=== PATIENT | female | born 1950 | race African-American/Black ===

== ENCOUNTER 2016-06-02 20:34 | Inpatient (IN) | payer MEDICARE, MEDICAID ==
[~2016-06-02] VITALS: Ht 165.1 cm; Wt 132.9 kg
[~2016-06-02 20:34] MED LIST: AMLODIPINE BESY10 MG; DIAZEPAM5 MG; FUROSEMIDE40 MG PO; HYDROCODON-ACE1 EAC4; LOSARTAN POTASS25 M1; MELOXICAM15 MG PO; METOPROLOL TART50 M1; NORCO 5-325 TA1 EACH ORAL; ROBITUSSIN DM5 ML PO; ZITHROMAX250 MG ORAL
[2016-06-02 21:21] VITALS: BP 122/93
[2016-06-02 21:35] LABS: BASOPHILS % (AUTO) 1.9 % (0.0-2.0); EOSINOPHILS % (AUTO) 2.6 % (0.0-3.0); LYMPHOCYTES % (AUTO) 29.2 % (20.0-45.0); MEAN CORPUSCULAR HEMOGLOBIN 27.1 PG (27.0-31.0); MEAN CORPUSCULAR HGB CONC 30.6 G/DL (32.0-36.0); MEAN CORPUSCULAR VOLUME 88 FL (80-99); MEAN PLATELET VOLUME 11.2 FL (6.5-10.1); MONOCYTES % (AUTO) 7.8 % (1.0-10.0); NEUTROPHILS % (AUTO) 58.6 % (45.0-75.0); PLATELET COUNT 144 K/UL (150-450); RED BLOOD COUNT 4.68 M/UL (4.20-5.40); RED CELL DISTRIBUTION WIDTH 15.4 % (11.6-14.8); WHITE BLOOD COUNT 5.9 K/UL (4.8-10.8)
[2016-06-02 21:50] LABS: TROPONIN I < 0.30 ng/mL (<=0.30)
[2016-06-02 21:54] LABS: ALBUMIN/GLOBULIN RATIO 0.9 (1.0-2.7); CALCIUM 9.2 mg/dL (8.6-10.2); CREATININE 1.4 mg/dL (0.5-0.9); GLOMERULAR FILTRATION RATE 45.3 mL/min (>60); TOTAL PROTEIN 7.8 g/dL (6.6-8.7)
[2016-06-02 22:07] LABS: POTASSIUM 4.7 mEQ/L (3.4-4.9)
[2016-06-02 22:22] LABS: CKMB 3.9 ng/mL (< 3.8)
[2016-06-02 22:26] VITALS: BP 124/67
--- NOTE | 2016-06-02 22:46 | Emergency Room Report ---
History of Present Illness General Chief Complaint: General Complaint Source: Patient, EMS Present Illness HPI Patient is a 66-year-old female who presented after having acute onset of increased left-sided numbness. Patient reported having numbness to her left arm as well as her left leg. She denied any facial numbness. Patient any focal weakness. She denies severe headache. Patient prior history of cardiac disease as well as lung disease. Patient also prior history of morbid obesity. Patient had onset of symptoms several hours prior to arrival. She denied any sudden onset of headache. Allergies: Coded Allergies: CODEINE (Verified Adverse Reaction, Intermediate, 03/19/13) Patient History Past Medical History: see triage record, HTN Now: No Reviewed Nursing Documentation: PMH: Agreed, PSxH: Agreed Nursing Documentation-PMH Past Medical History: No History, Except For Hx Cardiac Problems: Yes - CHF Hx Hypertension: Yes Hx Cancer: No Hx Neurological Problems: No Review of Systems All Other Systems: negative except mentioned in HPI Physical Exam Vital Signs Date Time Temp Pulse Resp B/P Pulse Ox O2 Delivery O2 Flow Rate FiO2 06/02/16 20:30 98.2 100 16 152/99 98 Room Air Sp02 EP Interpretation: reviewed, normal General Appearance: normal inspection, well appearing, no apparent distress, alert, GCS 15, obese Head: atraumatic ENT: normal ENT inspection, hearing grossly normal, normal voice Neck: normal inspection, full range of motion, supple, no bony tend Respiratory: normal inspection, lungs clear, normal breath sounds, no respiratory distress, no retraction, no wheezing Cardiovascular #1: regular rate, rhythm, no edema Gastrointestinal: normal inspection, normal bowel sounds, non tender, soft, no guarding, no hernia Genitourinary: no CVA tenderness Musculoskeletal: back normal, normal range of motion, swelling, other - decreased ROM left foot Neurologic: normal inspection, alert, oriented x3, responsive, speech normal Psychiatric: normal inspection, judgement/insight normal, mood/affect normal Skin: normal inspection, normal color, no rash Medical Decision Making Diagnostic Impression: Primary Impression: Morbid obesity Additional Impression: CAD (coronary artery disease) ER Course Patient is a 66-year-old female who presented after increased left-sided arm numbness. Differential diagnosis included was not limited to the CVA, cervical radiculopathy, brachioplexus injury, myocardial infarction, aortic dissection and among others.Because of complexity of patient's case laboratory testing and imaging studies were ordered. CT the head read by radiology showed chronic ischemic white matter changes.She was was noted to have some cardiac risk factors. Dr. Bangura was contacted for inpatient management due to complexity of medical condition. Patient will need further cardiac monitoring Labs Test 06/02/16 21:18 White Blood Count 5.9 K/UL (4.8-10.8) Red Blood Count 4.68 M/UL (4.20-5.40) Hemoglobin 12.7 G/DL (12.0-16.0) Hematocrit 41.4 % (37.0-47.0) Mean Corpuscular Volume 88 FL (80-99) Mean Corpuscular Hemoglobin 27.1 PG (27.0-31.0) Mean Corpuscular Hemoglobin Concent 30.6 G/DL (32.0-36.0) Red Cell Distribution Width 15.4 % (11.6-14.8) Platelet Count 144 K/UL (150-450) Mean Platelet Volume 11.2 FL (6.5-10.1) Neutrophils (%) (Auto) 58.6 % (45.0-75.0) Lymphocytes (%) (Auto) 29.2 % (20.0-45.0) Monocytes (%) (Auto) 7.8 % (1.0-10.0) Eosinophils (%) (Auto) 2.6 % (0.0-3.0) Basophils (%) (Auto) 1.9 % (0.0-2.0) Sodium Level 141 mEQ/L (135-145) Potassium Level 4.7 mEQ/L (3.4-4.9) Chloride Level 101 mEQ/L (98-107) Carbon Dioxide Level 23 mEQ/L (20-30) Anion Gap 17 (5-15) Blood Urea Nitrogen 25 mg/dL (7-23) Creatinine 1.4 mg/dL (0.5-0.9) Estimat Glomerular Filtration Rate 45.3 mL/min (>60) Glucose Level 131 mg/dL (74-106) Calcium Level 9.2 mg/dL (8.6-10.2) Total Bilirubin 0.4 mg/dL (0.0-1.2) Aspartate Amino Transf (AST/SGOT) 31 U/L (5-40) Alanine Aminotransferase (ALT/SGPT) 12 U/L (3-33) Alkaline Phosphatase 83 U/L (35-104) Total Creatine Kinase 150 U/L (26-140) Creatine Kinase MB 3.9 ng/mL (< 3.8) Creatine Kinase MB Relative Index 2.6 Troponin I < 0.30 ng/mL (<=0.30) Total Protein 7.8 g/dL (6.6-8.7) Albumin 3.8 g/dL (3.5-5.2) Globulin 4.0 g/dL Albumin/Globulin Ratio 0.9 (1.0-2.7) Chest X-Ray Diagnostic Results EP Interpretation: Yes Findings: no consolidation, no effusion, no pneumothorax, no acute cardiopulmonary disease Number of Views: 1 Last Vital Signs Date Time Temp Pulse Resp B/P Pulse Ox O2 Delivery O2 Flow Rate FiO2 06/02/16 22:26 97.0 98 17 124/67 97 Room Air Status: unchanged Disposition: ADMITTED INPATIENT Condition: Serious Referrals: NOT CHOSEN IPA/,REFERRING (PCP) Ruiz May Jun 02, 2016 22:46
[2016-06-03] VITALS (7 sets, daily range): BP systolic 108–146; BP diastolic 73–95
[2016-06-03] MEDS ORDERED: Miralax 17gm pkt ORAL PRN (04:45)
[2016-06-03] MEDS ORDERED: Morphine Sulfate 2mg/ml Inj IVP PRN (04:45)
[2016-06-03] MEDS ORDERED: Enalaprilat 2.5mg/2ml Inj IV PRN (04:45)
[2016-06-03] MEDS ORDERED: DuoNeb 0.5-3(2.5)mg/3ml neb HHN PRN (04:45)
[2016-06-03] MEDS ORDERED: Nitroglycerin Subl 0.4mg tab (Bottle Of 25) SL PRN (04:45)
[2016-06-03] MEDS ORDERED: Mylanta II UD 30ml ORAL PRN (04:45)
[2016-06-03] MEDS ORDERED: Labetalol 5mg/ml 20ml vial IV PRN (04:45)
[2016-06-03] MEDS ORDERED: LORazepam Inj 2mg/ml 1ml IV PRN (04:45)
[2016-06-03 07:30] LABS: APPEARANCE,URINE SLIGHTLY CLOUDY; KETONES,URINE NEGATIVE (NEGATIVE); LEUKOCYTE ESTERASE ,URINE 3+ (NEGATIVE); NITRITE,URINE POSITIVE (NEGATIVE); PH,URINE 6 (4.5-8.0); PROTEIN,URINE 1+ (NEGATIVE); UROBILINOGEN,URINE NORMAL MG/DL (0.0-1.0)
--- NOTE | 2016-06-03 08:19 | History and Physical ---
History of Present Illness General Date patient seen: Jun 03, 2016 Time patient seen: 08:30 Reason for Hospitalization: General Complaint Present Illness HPI 66-year-old female with hx of CAD, morbid obesity, cardiomyopathy (last EF 20-25 %) presented after having acute onset of increased left-sided numbness. Patient reported having numbness to left arm and left leg. slurred speech Onset of symptoms few hours prior to coming to ED She denied any facial numbness. Patient denied any focal weakness. She denied severe headache. CT head in ED revealed no acute intracranial pathology troponin negative proBNP 1905 elevated CK MB and CK evidence of renal insufficiency with Bun 25 and creat 1.4 patient admitted to [facility] for further management Allergies: Coded Allergies: CODEINE (Verified Adverse Reaction, Intermediate, 03/19/13) Medication History Scheduled Furosemide* (Lasix*), 40 PO DAILY, (Reported) Meloxicam* (Meloxicam*), 15 PO DAILY, (Reported) Metoprolol Tartrate* (Metoprolol Tartrate*), Unknown Dose BID, (Reported) Scheduled PRN Hydrocodone Bit/Acetaminophen 5-325* ([place] 5-325*), 1 TAB ORAL Q6H PRN for For Pain Miscellaneous Medications Diazepam* (Diazepam*), (Reported) Hydrocodone Bit/Acetaminophen 5-500 (Vicodin 5-500), (Reported) Losartan Potassium (Losartan Potassium), (Reported) Patient History History Provided By: Patient Healthcare decision maker Resuscitation status Full Code Advanced Directive on File No Past Medical/Surgical History Past Medical/Surgical History: (1) Morbid obesity (2) CAD (coronary artery disease) (3) Cardiomyopathy (4) Pulmonary edema (5) CHF (6) Fall (7) HTN (hypertension) (8) bronchitis (9) Hyperlipidemia Review of Systems Constitutional: Reports: weakness Eye: Reports: no symptoms ENT: Reports: no symptoms Respiratory: Reports: no symptoms Cardiovascular: Reports: see HPI Gastrointestinal: Reports: no symptoms Genitourinary: Reports: no symptoms Musculoskeletal: Reports: muscle pain, muscle stiffness Psychiatric: Reports: no symptoms Neurological: Reports: see HPI Endocrine: Reports: no symptoms Hematologic/Lymphatic: Reports: no symptoms Physical Exam General Appearance: no apparent distress, alert - awake, oriented x 3 AA female, morbidly obese Lines, tubes and drains: peripheral HEENT: normocephalic, atraumatic, anicteric, mucous membranes moist, PERRL Neck: non-tender, normal alignment, supple, normal inspection Respiratory/Chest: lungs clear - with moderate air entry , no respiratory distress, no accessory muscle use Cardiovascular/Chest: normal peripheral pulses, normal rate - SR on tele Abdomen: normal bowel sounds, non tender, soft - obese Genitourinary/Rectal: normal prostate exam Extremities: non-tender, no calf tenderness, normal capillary refill, other - trace edema BLE Skin Exam: warm/dry Neurologic: abnormal gait, alert, oriented x 3, responsive Last 24 Hour Vital Signs Date Time Temp Pulse Resp B/P Pulse Ox O2 Delivery O2 Flow Rate FiO2 06/03/16 04:00 97.7 89 20 108/73 95 Room Air 06/03/16 04:00 93 06/03/16 01:00 102 06/03/16 00:23 97.0 98 124/67 97 Room Air 06/03/16 00:00 97.0 104 20 141/92 93 Room Air 06/02/16 22:26 97.0 98 124/67 97 Room Air 06/02/16 21:21 95 24 122/93 97 Room Air 06/02/16 20:30 98.2 100 16 152/99 98 Room Air Intake and Output 06/02/16 06/03/16 19:00 07:00 Intake Total 160 ml Balance 160 ml Intake Oral 100 ml IV Total 60 ml # Voids 2 Laboratory Tests Test 06/02/16 21:18 06/03/16 06:00 06/03/16 07:20 White Blood Count 5.9 K/UL (4.8-10.8) Red Blood Count 4.68 M/UL (4.20-5.40) Hemoglobin 12.7 G/DL (12.0-16.0) Hematocrit 41.4 % (37.0-47.0) Mean Corpuscular Volume 88 FL (80-99) Mean Corpuscular Hemoglobin 27.1 PG (27.0-31.0) Mean Corpuscular Hemoglobin Concent 30.6 G/DL (32.0-36.0) L Red Cell Distribution Width 15.4 % (11.6-14.8) H Platelet Count 144 K/UL (150-450) L Mean Platelet Volume 11.2 FL (6.5-10.1) H Neutrophils (%) (Auto) 58.6 % (45.0-75.0) Lymphocytes (%) (Auto) 29.2 % (20.0-45.0) Monocytes (%) (Auto) 7.8 % (1.0-10.0) Eosinophils (%) (Auto) 2.6 % (0.0-3.0) Basophils (%) (Auto) 1.9 % (0.0-2.0) Sodium Level 141 mEQ/L (135-145) Pending Potassium Level 4.7 mEQ/L (3.4-4.9) Pending Chloride Level 101 mEQ/L (98-107) Pending Carbon Dioxide Level 23 mEQ/L (20-30) Pending Anion Gap 17 (5-15) H Blood Urea Nitrogen 25 mg/dL (7-23) H Pending Creatinine 1.4 mg/dL (0.5-0.9) H Pending Estimat Glomerular Filtration Rate 45.3 mL/min (>60) Pending Glucose Level 131 mg/dL (74-106) H Pending Calcium Level 9.2 mg/dL (8.6-10.2) Pending Total Bilirubin 0.4 mg/dL (0.0-1.2) Pending Aspartate Amino Transf (AST/SGOT) 31 U/L (5-40) Pending Alanine Aminotransferase (ALT/SGPT) 12 U/L (3-33) Pending Alkaline Phosphatase 83 U/L (35-104) Pending Total Creatine Kinase 150 U/L (26-140) H Pending Creatine Kinase MB 3.9 ng/mL (< 3.8) H Creatine Kinase MB Relative Index 2.6 Troponin I < 0.30 ng/mL (<=0.30) Pro-B-Type Natriuretic Peptide 1905 pg/mL (0-125) H Total Protein 7.8 g/dL (6.6-8.7) Pending Albumin 3.8 g/dL (3.5-5.2) Pending Globulin 4.0 g/dL Pending Albumin/Globulin Ratio 0.9 (1.0-2.7) L Urine Color Pale yellow Urine Appearance Slightly cloudy Urine pH 6 (4.5-8.0) Urine Specific [place] 1.015 (1.005-1.035) Urine Protein 1+ (NEGATIVE) H Urine Glucose (UA) Negative (NEGATIVE) Urine Ketones Negative (NEGATIVE) Urine Occult Blood 3+ (NEGATIVE) H Urine Nitrite Positive (NEGATIVE) H Urine Bilirubin Negative (NEGATIVE) Urine Urobilinogen Normal MG/DL (0.0-1.0) Urine Leukocyte Esterase 3+ (NEGATIVE) H Urine RBC Pending Urine WBC Pending Urine Squamous Epithelial Cells Pending Urine Bacteria Pending Urine Eosinophils Pending Urine Osmolality Pending Urine Random Sodium 81 mmol/L Urine Random Chloride 59 mmol/L Urine Potassium Timed 29 mmol/L Plasma/Serum Osmolality Pending Uric Acid Pending Phosphorus Level Pending Magnesium Level Pending Free Thyroxine Pending Free Triiodothyronine Pending Cortisol Pending Height (Feet): 5 Height (Inches): 5.00 Weight (Pounds): 293 Medications Current Medications Medications (Trade) Dose Ordered Sig/Rufina Route PRN Reason Start Time Stop Time Status Last Admin Dose Admin Acetaminophen (Tylenol) 650 mg Q4H PRN ORAL fever 06/03/16 04:45 07/03/16 04:44 Al Hydroxide/Mg Hydroxide (Mylanta II) 30 ml Q6H PRN ORAL dyspepsia 06/03/16 04:45 07/03/16 04:44 Albuterol/ Ipratropium (DuoNeb 0.5-3(2.5)mg/3ml) 3 ml EVERY 4 HOURS PRN HHN Shortness of Breath 06/03/16 04:45 06/08/16 04:44 Aspirin (ASA) 325 mg DAILY ORAL 06/03/16 09:00 07/03/16 08:59 Clonidine HCl (Catapres) 0.1 mg Q4H PRN ORAL For High Blood Pressure 06/03/16 04:45 07/03/16 04:44 Dextrose (Dextrose 50%) STAT PRN IV Hypoglycemia 06/03/16 04:45 07/03/16 04:44 Dextrose/Sodium Chloride (D5 0.45% NS) 1,000 ml @ 50 mls/hr Q20H IV 06/03/16 17:50 07/03/16 17:49 06/03/16 05:48 Enalaprilat (Vasotec) 2.5 mg Q6H PRN IV sbp more than 200 06/03/16 04:45 07/03/16 04:44 Heparin Sodium (Porcine) (Heparin 5000 units/ml) 5,000 units EVERY 12 HOURS SUBQ 06/03/16 09:00 07/03/16 08:59 Hydralazine HCl (Apresoline) 20 mg Q4H PRN IV sbp more than 160 06/03/16 04:45 07/03/16 04:44 Labetalol HCl (Normodyne) 20 mg EVERY HOUR PRN IV sbo more than 180 06/03/16 04:45 07/03/16 04:44 Lorazepam (Ativan 2mg/ml 1ml) 0.5 mg Q4H PRN IV For Anxiety 06/03/16 04:45 06/10/16 04:44 Losartan Potassium 25 mg 25 mg DAILY ORAL 06/03/16 09:00 07/03/16 08:59 Morphine Sulfate (Morphine Sulfate) 1 mg EVERY 4 HOURS PRN IVP For Pain 7-10 06/03/16 04:45 06/10/16 04:44 UNV Nitroglycerin (Ntg) 0.4 mg Q5M X 3 DOSES PRN SL Prn Chest Pain 06/03/16 04:45 07/03/16 04:44 Ondansetron HCl (Zofran) 4 mg Q6H PRN IVP Nausea & Vomiting 06/03/16 04:45 07/03/16 04:44 Polyethylene Glycol (Miralax) 17 gm HSPRN PRN ORAL Constipation 06/03/16 04:45 07/03/16 04:44 Temazepam (Restoril) 15 mg HSPRN PRN ORAL Insomnia 06/03/16 04:45 06/10/16 04:44 Assessment/Plan Assessment/Plan ASSESSMENT left side numbness, r/o CVA/TIA CAD cardiomyopathy CHF HTN COURTNEY on ? chronic renal insufficiency morbid obesity PLAN OF CARE tele troponin negative, no complaints of chest pain, SR on tele O2 HHN CXR ECHO continue ASA medical management of CHF per cardio last ECHO with EF 20-25% and RVSP of 42 renal US monitor renal parameters, lytes, avoid nephrotoxic discussed with neuro , neuro eval pending will order MRI brain Carotid Duplex Venous Duplex BLE fall precautions PT/OT/ST DVT prophylaxis case discussed and evaluated by supervising physician Severo Rea)Aliyah NP Jun 03, 2016 08:19
[2016-06-03 08:28] LABS: ALANINE AMINOTRANSFERASE 8 U/L (3-33); ALBUMIN/GLOBULIN RATIO 1.1 (1.0-2.7); ANION GAP 15 (5-15); ASPARTATE AMINO TRANSFERASE 17 U/L (5-40); CALCIUM 9.1 mg/dL (8.6-10.2); CARBON DIOXIDE 26 mEQ/L (20-30); CHLORIDE 104 mEQ/L (98-107); CREATININE 1.2 mg/dL (0.5-0.9); GLOMERULAR FILTRATION RATE 54.2 mL/min (>60); HEMOLYSIS 1; MAGNESIUM 1.7 mg/dL (1.7-2.5); PHOSPHORUS 4.1 mg/dL (2.5-4.8); POTASSIUM 4.5 mEQ/L (3.4-4.9); SODIUM 145 mEQ/L (135-145); TOTAL PROTEIN 7.1 g/dL (6.6-8.7); URIC ACID 9.4 mg/dL (3.0-7.5)
[2016-06-03] MEDS ORDERED: D5 1/2NS 1000ml IV ONE (08:59)
[2016-06-03] MEDS ORDERED: Losartan 25mg tab ORAL SCH (09:00)
[2016-06-03] MEDS: Heparin 5000 units/ml inj SUBQ SCH ×2 (09:00→21:00)
[2016-06-03 09:36] LABS: WBC,URINE TNTC /HPF (0 - 2)
[2016-06-03 09:37] LABS: BACTERIA,URINE MANY /HPF; SQUAMOUS EPITHELIAL CELL,UR FEW /LPF (NONE/OCC)
--- NOTE | 2016-06-03 12:03 | Diagnostic Imaging Report ---
CT Brain without Intravenous Contrast INDICATION: Altered mental status. COMPARISON: Head CT dated 04/07/14. TECHNIQUE: Serial axial images were obtained from the the skull base through the vertex without intravenous contrast. Coronal reformats were obtained. Dose Estimate: Total DLP 1474 mGycm CTDIvol 70 mGy FINDINGS: Moderate confluent periventricular and subcortical white matter hypodensities are nonspecific but may reflect the sequela of chronic microangiopathy. There is no evidence of acute intracranial hemorrhage or territorial infarct. The cortical sulci, ventricles and extra-axial CSF spaces appear prominent but likely normal for patient's age. There is no space occupying lesion, mass effect or midline shift. The visualized paranasal sinuses and mastoid air cells are clear. Hyperostosis frontalis interna is noted without evidence of calvarial fracture. Previously identified nonspecific calvarial sclerosis appears similar to the prior exam. IMPRESSION: 1. No acute intracranial hemorrhage, midline shift or mass effect. 2. Mild cerebral atrophy. Moderate confluent white matter hypodensities are nonspecific but may reflect the sequela of chronic microangiopathy. 3. Nonspecific calvarial sclerosis, similar to the prior examination in 2014. Please correlate clinically.
--- NOTE | 2016-06-03 12:10 | Diagnostic Imaging Report ---
Clinical history: As in header. Technique: Portable AP chest radiograph was obtained. Comparison: 04/11/13. Findings: There is mild cardiomegaly with mild interstitial opacities suggesting interstitial edema. Lung volumes are low with probable basilar atelectasis. There is no pleural effusion or pneumothorax. The bony thorax is unremarkable. Impression: Cardiomegaly with suspected mild interstitial edema. Low lung volumes with probable basilar atelectasis.
--- NOTE | 2016-06-03 13:26 | Cardiology Progress Note ---
Assessment/Plan Assessment/Plan [id number] tia htn hyergycemia cm history obesity ? thyroid mass? renal insuf Objective Last 24 Hour Vital Signs Date Time Temp Pulse Resp B/P Pulse Ox O2 Delivery O2 Flow Rate FiO2 06/03/16 12:24 97.7 98 18 146/95 95 06/03/16 12:24 92 06/03/16 09:00 97.7 98 18 146/95 98 06/03/16 09:00 92 06/03/16 08:59 99 18 Room Air 06/03/16 08:00 97.7 98 18 146/95 95 06/03/16 04:00 97.7 89 20 108/73 95 Room Air 06/03/16 04:00 93 06/03/16 01:00 102 06/03/16 00:23 97.0 98 17 124/67 97 Room Air 06/03/16 00:00 97.0 104 20 141/92 93 Room Air 06/02/16 22:26 97.0 98 17 124/67 97 Room Air 06/02/16 21:21 95 24 122/93 97 Room Air 06/02/16 20:30 98.2 100 16 152/99 98 Room Air Intake and Output 06/02/16 06/03/16 19:00 07:00 Intake Total 160 ml Balance 160 ml Intake Oral 100 ml IV Total 60 ml # Voids 2 Laboratory Tests Test 06/02/16 21:18 06/03/16 06:00 06/03/16 07:20 White Blood Count 5.9 K/UL (4.8-10.8) Red Blood Count 4.68 M/UL (4.20-5.40) Hemoglobin 12.7 G/DL (12.0-16.0) Hematocrit 41.4 % (37.0-47.0) Mean Corpuscular Volume 88 FL (80-99) Mean Corpuscular Hemoglobin 27.1 PG (27.0-31.0) Mean Corpuscular Hemoglobin Concent 30.6 G/DL (32.0-36.0) L Red Cell Distribution Width 15.4 % (11.6-14.8) H Platelet Count 144 K/UL (150-450) L Mean Platelet Volume 11.2 FL (6.5-10.1) H Neutrophils (%) (Auto) 58.6 % (45.0-75.0) Lymphocytes (%) (Auto) 29.2 % (20.0-45.0) Monocytes (%) (Auto) 7.8 % (1.0-10.0) Eosinophils (%) (Auto) 2.6 % (0.0-3.0) Basophils (%) (Auto) 1.9 % (0.0-2.0) Sodium Level 141 mEQ/L (135-145) 145 mEQ/L (135-145) Potassium Level 4.7 mEQ/L (3.4-4.9) 4.5 mEQ/L (3.4-4.9) Chloride Level 101 mEQ/L (98-107) 104 mEQ/L (98-107) Carbon Dioxide Level 23 mEQ/L (20-30) 26 mEQ/L (20-30) Anion Gap 17 (5-15) H 15 (5-15) Blood Urea Nitrogen 25 mg/dL (7-23) H 20 mg/dL (7-23) Creatinine 1.4 mg/dL (0.5-0.9) H 1.2 mg/dL (0.5-0.9) H Estimat Glomerular Filtration Rate 45.3 mL/min (>60) 54.2 mL/min (>60) Glucose Level 131 mg/dL (74-106) H 121 mg/dL (74-106) H Calcium Level 9.2 mg/dL (8.6-10.2) 9.1 mg/dL (8.6-10.2) Total Bilirubin 0.4 mg/dL (0.0-1.2) 0.6 mg/dL (0.0-1.2) Aspartate Amino Transf (AST/SGOT) 31 U/L (5-40) 17 U/L (5-40) Alanine Aminotransferase (ALT/SGPT) 12 U/L (3-33) 8 U/L (3-33) Alkaline Phosphatase 83 U/L (35-104) 83 U/L (35-104) Total Creatine Kinase 150 U/L (26-140) H 137 U/L (26-140) Creatine Kinase MB 3.9 ng/mL (< 3.8) H Creatine Kinase MB Relative Index 2.6 Troponin I < 0.30 ng/mL (<=0.30) Pro-B-Type Natriuretic Peptide 1905 pg/mL (0-125) H Total Protein 7.8 g/dL (6.6-8.7) 7.1 g/dL (6.6-8.7) Albumin 3.8 g/dL (3.5-5.2) 3.8 g/dL (3.5-5.2) Globulin 4.0 g/dL 3.3 g/dL Albumin/Globulin Ratio 0.9 (1.0-2.7) L 1.1 (1.0-2.7) Urine Color Pale yellow Urine Appearance Slightly cloudy Urine pH 6 (4.5-8.0) Urine Specific [place] 1.015 (1.005-1.035) Urine Protein 1+ (NEGATIVE) H Urine Glucose (UA) Negative (NEGATIVE) Urine Ketones Negative (NEGATIVE) Urine Occult Blood 3+ (NEGATIVE) H Urine Nitrite Positive (NEGATIVE) H Urine Bilirubin Negative (NEGATIVE) Urine Urobilinogen Normal MG/DL (0.0-1.0) Urine Leukocyte Esterase 3+ (NEGATIVE) H Urine RBC 5-10 /HPF (0 - 2) H Urine WBC Tntc /HPF (0 - 2) H Urine Squamous Epithelial Cells Few /LPF (NONE/OCC) Urine Bacteria Many /HPF (NONE) H Urine Eosinophils Occasional Urine Osmolality Pending Urine Random Sodium 81 mmol/L Urine Random Chloride 59 mmol/L Urine Potassium Timed 29 mmol/L Plasma/Serum Osmolality Pending Uric Acid 9.4 mg/dL (3.0-7.5) H Phosphorus Level 4.1 mg/dL (2.5-4.8) Magnesium Level 1.7 mg/dL (1.7-2.5) Free Thyroxine 1.12 ng/dL (0.86-1.85) Free Triiodothyronine Pending Cortisol Pending GLENN ARMSTRONG Jun 03, 2016 13:26
[2016-06-03] MEDS: Norco 5mg/325mg tab ORAL PRN (13:39)
[2016-06-03] MEDS ORDERED: D5 1/2NS 1,000 ML IV SCH (17:50)
[2016-06-03] MEDS: Atorvastatin 20mg tab ORAL SCH (21:17)
[2016-06-04] VITALS (7 sets, daily range): BP systolic 101–147; BP diastolic 67–96
[2016-06-04 08:22] LABS: BASOPHILS % (AUTO) 1.3 % (0.0-2.0); EOSINOPHILS % (AUTO) 3.5 % (0.0-3.0); LYMPHOCYTES % (AUTO) 33.1 % (20.0-45.0); MEAN CORPUSCULAR HGB CONC 30.9 G/DL (32.0-36.0); MEAN CORPUSCULAR VOLUME 87 FL (80-99); MEAN PLATELET VOLUME 13.9 FL (6.5-10.1); MONOCYTES % (AUTO) 8.4 % (1.0-10.0); NEUTROPHILS % (AUTO) 53.8 % (45.0-75.0); PLATELET COUNT 169 K/UL (150-450); RED BLOOD COUNT 4.63 M/UL (4.20-5.40); RED CELL DISTRIBUTION WIDTH 15.9 % (11.6-14.8)
[2016-06-04 08:23] LABS: INR 1.1 (0.9-1.1); PROTHROMBIN TIME 10.8 SEC (9.30-11.50)
[2016-06-04] MEDS: Heparin 5000 units/ml inj SUBQ SCH ×2 (08:35→21:06)
[2016-06-04 08:48] LABS: CALCIUM 9.1 mg/dL (8.6-10.2); CHOLESTEROL/HDL RATIO 4.4 (3.3-4.4); CREATININE 1.2 mg/dL (0.5-0.9); GLOMERULAR FILTRATION RATE 54.2 mL/min (>60); POTASSIUM 4.6 mEQ/L (3.4-4.9); TOTAL PROTEIN 7.4 g/dL (6.6-8.7)
[2016-06-04 08:50] LABS: THYROID STIMULATING HORMONE 0.628 uIU/mL (0.300-4.500)
--- NOTE | 2016-06-04 11:31 | Neurology Progress Note ---
Objective Physical Exam Last Vital Signs Date Time Temp Pulse Resp B/P Pulse Ox O2 Delivery O2 Flow Rate FiO2 06/04/16 08:40 93 18 Room Air 06/04/16 08:38 97.2 125/70 97 Laboratory Tests Test 06/04/16 07:05 White Blood Count 5.0 K/UL (4.8-10.8) Red Blood Count 4.63 M/UL (4.20-5.40) Hemoglobin 12.5 G/DL (12.0-16.0) Hematocrit 40.5 % (37.0-47.0) Mean Corpuscular Volume 87 FL (80-99) Mean Corpuscular Hemoglobin 27.0 PG (27.0-31.0) Mean Corpuscular Hemoglobin Concent 30.9 G/DL (32.0-36.0) L Red Cell Distribution Width 15.9 % (11.6-14.8) H Platelet Count 169 K/UL (150-450) Mean Platelet Volume 13.9 FL (6.5-10.1) H Neutrophils (%) (Auto) 53.8 % (45.0-75.0) Lymphocytes (%) (Auto) 33.1 % (20.0-45.0) Monocytes (%) (Auto) 8.4 % (1.0-10.0) Eosinophils (%) (Auto) 3.5 % (0.0-3.0) H Basophils (%) (Auto) 1.3 % (0.0-2.0) Prothrombin Time 10.8 SEC (9.30-11.50) Prothromb Time International Ratio 1.1 (0.9-1.1) Activated Partial Thromboplast Time 26 SEC (23-33) Sodium Level 142 mEQ/L (135-145) Potassium Level 4.6 mEQ/L (3.4-4.9) Chloride Level 102 mEQ/L (98-107) Carbon Dioxide Level 26 mEQ/L (20-30) Anion Gap 14 (5-15) Blood Urea Nitrogen 17 mg/dL (7-23) Creatinine 1.2 mg/dL (0.5-0.9) H Estimat Glomerular Filtration Rate 54.2 mL/min (>60) Glucose Level 113 mg/dL (74-106) H Calcium Level 9.1 mg/dL (8.6-10.2) Total Bilirubin 0.6 mg/dL (0.0-1.2) Aspartate Amino Transf (AST/SGOT) 17 U/L (5-40) Alanine Aminotransferase (ALT/SGPT) 8 U/L (3-33) Alkaline Phosphatase 78 U/L (35-104) Total Protein 7.4 g/dL (6.6-8.7) Albumin 3.7 g/dL (3.5-5.2) Globulin 3.7 g/dL Albumin/Globulin Ratio 1.0 (1.0-2.7) Triglycerides Level 84 mg/dL (< 150) Cholesterol Level 229 mg/dL (< 200) H LDL Cholesterol 160 mg/dL (60-99) H HDL Cholesterol 52 mg/dL (> 60) Cholesterol/HDL Ratio 4.4 (3.3-4.4) Thyroid Stimulating Hormone (TSH) 0.628 uIU/mL (0.300-4.500) Impression/Recommendations Problems: (1) TIA involving right internal carotid artery (2) UTI (urinary tract infection) (3) CHF (4) HTN (hypertension) (5) Hyperlipidemia (6) CAD (coronary artery disease) (7) Back pain Status: stable Recommendations #[id number] BROOKS MARNIO Jun 04, 2016 11:31
--- NOTE | 2016-06-04 13:15 | Pulmonology Progress Note ---
Assessment/Plan Problems: (1) UTI (urinary tract infection) (2) Encephalopathy acute (3) TIA involving right internal carotid artery (4) Goiter (5) CHF (6) CAD (coronary artery disease) (7) Cardiomyopathy Assessment/Plan IV antibiotics check electrolytes cardiac evaluation ef of 20 titrate diurteics cxr bnp in am Subjective ROS Limited/Unobtainable: No Interval Events: no new compalains Allergies: Coded Allergies: CODEINE (Verified Adverse Reaction, Intermediate, 03/19/13) Objective Last 24 Hour Vital Signs Date Time Temp Pulse Resp B/P Pulse Ox O2 Delivery O2 Flow Rate FiO2 06/04/16 11:46 97.0 104 20 126/96 96 Room Air 06/04/16 08:40 93 18 Room Air 06/04/16 08:38 97.2 102 18 125/70 97 Room Air 06/04/16 08:34 102 125/70 06/04/16 08:33 125/70 06/04/16 08:00 99 06/04/16 05:37 97 06/04/16 04:00 97.3 97 18 128/83 96 Room Air 06/04/16 00:00 91 06/04/16 00:00 97.8 96 18 123/70 94 Room Air 06/03/16 21:17 98 135/75 06/03/16 20:40 98.1 98 19 135/75 95 Room Air 06/03/16 20:00 97 06/03/16 16:32 97.7 58 18 126/76 94 Room Air 06/03/16 16:00 103 06/03/16 13:46 88 140/82 Intake and Output 06/03/16 06/04/16 19:00 07:00 Intake Total 640 ml 480 ml Balance 640 ml 480 ml Intake Oral 640 ml 480 ml # Voids 2 2 # Bowel Movements 2 General Appearance: WD/WN HEENT: normocephalic, atraumatic Respiratory/Chest: chest wall non-tender, lungs clear Abdomen: normal bowel sounds, no organomegaly Genitourinary: normal external genitalia Extremities: no cyanosis 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, no motor/sensory deficits Lymphatic: no neck adenopathy Musculoskeletal: normal muscle bulk Laboratory Tests 06/04/16 07:05: White Blood Count 5.0, Red Blood Count 4.63, Hemoglobin 12.5, Hematocrit 40.5, Mean Corpuscular Volume 87, Mean Corpuscular Hemoglobin 27.0, Mean Corpuscular Hemoglobin Concent 30.9L, Red Cell Distribution Width 15.9H, Platelet Count 169 , Mean Platelet Volume 13.9H, Neutrophils (%) (Auto) 53.8, Lymphocytes (%) (Auto ) 33.1, Monocytes (%) (Auto) 8.4, Eosinophils (%) (Auto) 3.5H, Basophils (%) ( Auto) 1.3, Prothrombin Time 10.8, Prothromb Time International Ratio 1.1, Activated Partial Thromboplast Time 26, Sodium Level 142, Potassium Level 4.6, Chloride Level 102, Carbon Dioxide Level 26, Anion Gap 14, Blood Urea Nitrogen 17, Creatinine 1.2H, Estimat Glomerular Filtration Rate 54.2, Glucose Level 113H , Calcium Level 9.1, Total Bilirubin 0.6, Aspartate Amino Transf (AST/SGOT) 17, Alanine Aminotransferase (ALT/SGPT) 8, Alkaline Phosphatase 78, Total Protein 7.4, Albumin 3.7, Globulin 3.7, Albumin/Globulin Ratio 1.0, Triglycerides Level 84, Cholesterol Level 229H, LDL Cholesterol 160H, HDL Cholesterol 52, Cholesterol/HDL Ratio 4.4, Thyroid Stimulating Hormone (TSH) 0.628 Current Medications Medications (Trade) Dose Ordered Sig/Rufina Route PRN Reason Start Time Stop Time Status Last Admin Dose Admin Acetaminophen (Tylenol) 650 mg Q4H PRN ORAL fever 06/03/16 04:45 07/03/16 04:44 Acetaminophen/ Hydrocodone Bitart ([place] 5/325) 1 tab Q4H PRN ORAL Severe Pain (Pain Scale 7-10) 06/03/16 11:15 06/10/16 11:14 06/03/16 13:39 Al Hydroxide/Mg Hydroxide (Mylanta II) 30 ml Q6H PRN ORAL dyspepsia 06/03/16 04:45 07/03/16 04:44 Albuterol/ Ipratropium (DuoNeb 0.5-3(2.5)mg/3ml) 3 ml EVERY 4 HOURS PRN HHN Shortness of Breath 06/03/16 04:45 06/08/16 04:44 Aspirin (ASA) 325 mg DAILY ORAL 06/03/16 09:00 07/03/16 08:59 06/04/16 08:33 Atorvastatin Calcium (Lipitor) 20 mg BEDTIME ORAL 06/03/16 21:00 07/03/16 20:59 06/03/16 21:17 Benazepril HCl (Lotensin) 20 mg DAILY ORAL 06/03/16 13:00 07/03/16 12:59 06/04/16 08:33 Carvedilol (Coreg) 3.125 mg EVERY 12 HOURS ORAL 06/03/16 14:00 07/03/16 13:59 06/04/16 08:34 Clonidine HCl (Catapres) 0.1 mg Q4H PRN ORAL For High Blood Pressure 06/03/16 04:45 07/03/16 04:44 Dextrose (Dextrose 50%) STAT PRN IV Hypoglycemia 06/03/16 04:45 07/03/16 04:44 Enalaprilat (Vasotec) 2.5 mg Q6H PRN IV sbp more than 200 06/03/16 04:45 07/03/16 04:44 Heparin Sodium (Porcine) (Heparin 5000 units/ml) 5,000 units EVERY 12 HOURS SUBQ 06/03/16 09:00 07/03/16 08:59 06/04/16 08:35 Hydralazine HCl (Apresoline) 20 mg Q4H PRN IV sbp more than 160 06/03/16 04:45 07/03/16 04:44 Labetalol HCl (Normodyne) 20 mg EVERY HOUR PRN IV sbo more than 180 06/03/16 04:45 07/03/16 04:44 Lorazepam (Ativan 2mg/ml 1ml) 0.5 mg Q4H PRN IV For Anxiety 06/03/16 04:45 06/10/16 04:44 Nitroglycerin (Ntg) 0.4 mg Q5M X 3 DOSES PRN SL Prn Chest Pain 06/03/16 04:45 07/03/16 04:44 Ondansetron HCl (Zofran) 4 mg Q6H PRN IVP Nausea & Vomiting 06/03/16 04:45 07/03/16 04:44 Polyethylene Glycol (Miralax) 17 gm HSPRN PRN ORAL Constipation 06/03/16 04:45 07/03/16 04:44 Temazepam (Restoril) 15 mg HSPRN PRN ORAL Insomnia 06/03/16 04:45 06/10/16 04:44 ELISABETH RIVAS Jun 04, 2016 13:15
[2016-06-04] MEDS ORDERED: Tubing IV Secondary IV ONE (16:15)
[2016-06-04] MEDS ORDERED: NS 275ml ONE (16:15)
--- NOTE | 2016-06-04 16:38 | Diagnostic Imaging Report ---
Indication: Left sided numbness and slurred speech Technique: sagittal T1 fast spin echo, axial T1 FLAIR PROPELLER, axial T2 FLAIR PROPELLER, axial T2 FS PROPELLER, axial T2* GRE, axial diffusion weighted images. ADC and exponential ADC maps generated Comparison: CT dated 06/02/2016 Findings:Exam is somewhat limited, as patient body habitus required use of the older head coil. There is a small cluster of multiple foci of restricted diffusion in the left posterior parietal lobe, involving the cortical surface and the deeper white matter. There is some associated T2 abnormality. No acute hemorrhage. There is extensive confluent deep white matter increased signal. No mass effect nor midline shift. There is mild age-related enlargement of ventricles and extra-axial CSF spaces. Intact calvarium. Visualized orbits and sinuses are unremarkable. Impression: Small cluster of foci of restricted diffusion in the right parietal lobe, consistent with acute infarcts, multifocality suggests embolic origin Negative for bleed or mass effect Extensive white matter high T2 signal hyperintensity, probably on the basis of chronic microvascular ischemic change. Demyelinating disease not excludable Dr. Bangura notified at the time of interpretation
--- NOTE | 2016-06-04 18:58 | Cardiology Progress Note ---
Assessment/Plan Assessment/Plan tia htn hyergycemia cm history obesity ? thyroid mass? renal insuf [place]: Angiographic findings: 1. Left coronary artery arises normally. 2. The left main is angiographically normal. 3. The LAD is a major caliber vessel, giving off the major caliber diagonal branch from the proximal segment. There are mild diffuse luminal irregularities causing diffuse 10% to 20% nonobstructive stenosis throughout the LAD. There is no significant obstruction, however. 4. The circumflex artery is a major caliber vessel. The circumflex artery is also angiographically patent without significant obstruction. 5. The right coronary artery arises from right sinus of Valsalva. This is a major caliber and dominant vessel. The patient's coronary artery system is right dominant. Except for the mild 20% to 30% nonobstructive stenosis in its midsegment, the right coronary artery is also an angiographically normal vessel without significant obstruction. 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 allo above was discussed with pt extensivcely needs to be oan na adn fluid restiction to avoid nsaid if at all possible o minimize use as may affect renal fucntion and chf adn abilityh to take acie Subjective Cardiovascular: Denies: chest pain, lightheadedness, palpitations Respiratory: Reports: shortness of breath Gastrointestinal/Abdominal: Denies: abdominal pain Genitourinary: Reports: burning Objective Last 24 Hour Vital Signs Date Time Temp Pulse Resp B/P Pulse Ox O2 Delivery O2 Flow Rate FiO2 06/04/16 16:00 98.2 98 20 123/91 99 Room Air 06/04/16 12:00 110 06/04/16 11:46 97.0 104 20 126/96 96 Room Air 06/04/16 08:40 93 18 Room Air 06/04/16 08:38 97.2 102 18 125/70 97 Room Air 06/04/16 08:34 102 125/70 06/04/16 08:33 125/70 06/04/16 08:00 99 06/04/16 05:37 97 06/04/16 04:00 97.3 97 18 128/83 96 Room Air 06/04/16 00:00 91 06/04/16 00:00 97.8 96 18 123/70 94 Room Air 06/03/16 21:17 98 135/75 06/03/16 20:40 98.1 98 19 135/75 95 Room Air 06/03/16 20:00 97 General Appearance: alert Neck: supple Cardiovascular: normal rate, regular rhythm Respiratory/Chest: lungs clear, normal breath sounds Abdomen: non tender, soft Extremities: no swelling Intake and Output 06/03/16 06/04/16 19:00 07:00 Intake Total 640 ml 480 ml Balance 640 ml 480 ml Intake Oral 640 ml 480 ml # Voids 2 2 # Bowel Movements 2 Laboratory Tests Test 06/04/16 07:05 White Blood Count 5.0 K/UL (4.8-10.8) Red Blood Count 4.63 M/UL (4.20-5.40) Hemoglobin 12.5 G/DL (12.0-16.0) Hematocrit 40.5 % (37.0-47.0) Mean Corpuscular Volume 87 FL (80-99) Mean Corpuscular Hemoglobin 27.0 PG (27.0-31.0) Mean Corpuscular Hemoglobin Concent 30.9 G/DL (32.0-36.0) L Red Cell Distribution Width 15.9 % (11.6-14.8) H Platelet Count 169 K/UL (150-450) Mean Platelet Volume 13.9 FL (6.5-10.1) H Neutrophils (%) (Auto) 53.8 % (45.0-75.0) Lymphocytes (%) (Auto) 33.1 % (20.0-45.0) Monocytes (%) (Auto) 8.4 % (1.0-10.0) Eosinophils (%) (Auto) 3.5 % (0.0-3.0) H Basophils (%) (Auto) 1.3 % (0.0-2.0) Prothrombin Time 10.8 SEC (9.30-11.50) Prothromb Time International Ratio 1.1 (0.9-1.1) Activated Partial Thromboplast Time 26 SEC (23-33) Sodium Level 142 mEQ/L (135-145) Potassium Level 4.6 mEQ/L (3.4-4.9) Chloride Level 102 mEQ/L (98-107) Carbon Dioxide Level 26 mEQ/L (20-30) Anion Gap 14 (5-15) Blood Urea Nitrogen 17 mg/dL (7-23) Creatinine 1.2 mg/dL (0.5-0.9) H Estimat Glomerular Filtration Rate 54.2 mL/min (>60) Glucose Level 113 mg/dL (74-106) H Calcium Level 9.1 mg/dL (8.6-10.2) Total Bilirubin 0.6 mg/dL (0.0-1.2) Aspartate Amino Transf (AST/SGOT) 17 U/L (5-40) Alanine Aminotransferase (ALT/SGPT) 8 U/L (3-33) Alkaline Phosphatase 78 U/L (35-104) Total Protein 7.4 g/dL (6.6-8.7) Albumin 3.7 g/dL (3.5-5.2) Globulin 3.7 g/dL Albumin/Globulin Ratio 1.0 (1.0-2.7) Triglycerides Level 84 mg/dL (< 150) Cholesterol Level 229 mg/dL (< 200) H LDL Cholesterol 160 mg/dL (60-99) H HDL Cholesterol 52 mg/dL (> 60) Cholesterol/HDL Ratio 4.4 (3.3-4.4) Thyroid Stimulating Hormone (TSH) 0.628 uIU/mL (0.300-4.500) GLENN ARMSTRONG Jun 04, 2016 18:58
--- NOTE | 2016-06-04 19:38 | Consultation ---
DATE OF CONSULTATION: 06/04/2016 NEUROLOGICAL CONSULTATION REFERRING PHYSICIAN: Reyes Bangura M.D. History of Present Illness: This is a 66-year-old female, seen in neurological consultation to evaluate acute stroke. According to the patient, she was in her usual state of health and went through the day without any complaints, then around 7:30 p.m. she was having a dinner. She had a very sudden onset of tingling sensation in her left upper extremity and slurred speech. She become very difficult fearful of stroke, called her daughter and called then 911. She was brought to the emergency room complaining of numbness in the left arm as well as left leg. There was no other associated symptoms. Her blood pressure on admission 152/99, heart rate of 100 and she was afebrile. Stat CT of the brain revealed chronic ischemic cerebrovascular disease. No evidence of acute abnormalities. No midline shift. Laboratory work included a chemistry panel with elevated BUN of 25, creatinine 1.4, and blood sugar 131. CK 150 and BNP at 1905. Normal TSH. Normal coagulation panel. Urinalysis with WBCs too numerous to count, many bacteria, 3+ leukocyte esterase and 1+ protein. CBC study is unremarkable except platelets 144,000. Since admission till present, numbness, tingling and slurring of speech resolved. PAST MEDICAL HISTORY: The patient has a history of coronary artery disease, hypertension, CHF, degenerative joint disease, status post bilateral hip replacement, hyperlipidemia, morbid obesity, and bilateral thyroid mass. MEDICATIONS: Her treatment prior to admission included diazepam at bedtime, furosemide, [place] p.r.n., losartan, meloxicam, and metoprolol. The patient indicated she was prescribed medication for hyperlipidemia, but not taken them. She is not on antiplatelets. ALLERGIES: Codeine. SOCIAL HISTORY: Lives with her daughter. No alcohol. No drug abuse. FAMILY HISTORY: Noncontributory. REVIEW OF SYMPTOMS: Denies headache or dizziness. No swallowing difficulties. Denies visual or hearing abnormalities. Complains of arthralgia. Denies chest pain or palpitations. No respiratory problems. Denies abdominal pain or discomfort. PHYSICAL EXAMINATION: GENERAL: This is a well-developed, morbidly obese female, not in acute distress, sitting at the bedside. VITAL SIGNS: Her vital signs are stable, heart rate of 102, temperature 97.2 degrees, and blood pressure 125/70. HEENT: Head, normocephalic. No evidence of injuries. Eyes, ears, and throat are clear. NECK: Supple. No meningeal signs. MUSCULOSKELETAL: Remarkable for arthritic changes both hips and knees. Peripheral pulses 1+, symmetric. MENTAL STATUS: The patient is alert and oriented x3. Speech is fluent. Language intact. No aphasia. No apraxia. Cognitive function normal. CRANIAL NERVES II: Pupils both responding to light and accommodation. Extraocular movement intact. No nystagmus. CRANIAL NERVES V: Normal corneal responses. CRANIAL NERVES VII: No facial asymmetry. CRANIAL NERVES VIII: Grossly normal hearing. CRANIAL NERVES IX THROUGH XII: Within normal limits. MOTOR EXAMINATION: Normal muscle tone and strength is 5/5 in all extremities. No involuntary movement. Deep reflexes 1+ symmetric with downgoing toes on both sides. SENSORY EXAM: Normal to pinprick and light touch. Gait is slow, somewhat wobbly, but stable. IMPRESSION: 1. Transient ischemic attack right middle cerebral artery distribution, now resolved. 2. Hypertension. 3. Hyperlipidemia. 4. Coronary artery disease. 5. Congestive heart failure. 6. Urinary tract infection. 7. Morbid obesity. RECOMMENDATION: 1. Carotid duplex study. 2. A 2D echocardiogram. 3. Lipid panel. 4. Start on aspirin 81 mg daily. 5. Start on atorvastatin 10 mg daily. 6. Continue with IV fluids and antibiotics for underlying infection. Thank you for allowing me to see this interesting patient in neurological consultation. Bill Perdomo M.D. DR: PREETI JOB#: [id number] CC:
[2016-06-04] MEDS: Atorvastatin 20mg tab ORAL SCH (21:04)
[2016-06-05] VITALS: BP 104/70
[2016-06-05 02:12] LABS: FREE TRIIODOTHYRONINE 3.1 pg/mL (2.0-4.4)
[2016-06-05 04:00] VITALS: BP 108/69
[2016-06-05 05:13] LABS: CORTISOL LC 17.4 ug/dL (.)
[2016-06-05 07:42] VITALS: BP 114/75
[2016-06-05 07:53] LABS: BASOPHILS % (AUTO) 1.4 % (0.0-2.0); EOSINOPHILS % (AUTO) 4.3 % (0.0-3.0); LYMPHOCYTES % (AUTO) 36.8 % (20.0-45.0); MEAN CORPUSCULAR HGB CONC 30.9 G/DL (32.0-36.0); MEAN CORPUSCULAR VOLUME 87 FL (80-99); MEAN PLATELET VOLUME 12.8 FL (6.5-10.1); MONOCYTES % (AUTO) 8.3 % (1.0-10.0); NEUTROPHILS % (AUTO) 49.3 % (45.0-75.0); PLATELET COUNT 157 K/UL (150-450); RED BLOOD COUNT 4.64 M/UL (4.20-5.40); RED CELL DISTRIBUTION WIDTH 15.4 % (11.6-14.8); WHITE BLOOD COUNT 5.1 K/UL (4.8-10.8)
[2016-06-05 08:19] LABS: CALCIUM 9.2 mg/dL (8.6-10.2); CREATININE 1.3 mg/dL (0.5-0.9); GLOMERULAR FILTRATION RATE 49.3 mL/min (>60); POTASSIUM 4.4 mEQ/L (3.4-4.9); TOTAL PROTEIN 7.6 g/dL (6.6-8.7)
[2016-06-05] MEDS: Heparin 5000 units/ml inj SUBQ SCH (08:32)
--- NOTE | 2016-06-05 08:44 | Cardiology Report ---
APPROVED REPORT EKG Measurement Heart [id number] Sinus tachycardia with 1st degree AV block Possible Left atrial enlargement Left ventricular hypertrophy T wave abnormality, consider lateral ischemia Abnormal ECG
--- NOTE | 2016-06-05 10:51 | Diagnostic Imaging Report ---
Indication: Abnormal renal function test, hypertension Technique: Grayscale and duplex images of the kidneys, retroperitoneum, and bladder were obtained. Comparison:None Findings: Right kidney measures 12 cm in length. Left kidney measures 9.5 cm in length. Both kidneys demonstrate normal echogenicity. There are multiple large calculi within the renal pelvis, measuring up to 2.2 cm diameter, versus a large confluent staghorn calculus. Multiple parapelvic and cortical cysts are demonstrated. No renal calculi on the left. There are renal cysts on the left. There is a parapelvic cyst versus focal lower pole hydronephrosis. No right hydronephrosis . Normal inferior vena cava. Bladder is nondistended, not visualized. Impression: Extensive right renal calculi. Consider further evaluation with CT. No definite hydronephrosis Questionable focal hydronephrosis of the left lower pole, versus parapelvic cyst. Cc likewise may be useful for better characterization Bilateral renal cysts as described Nondistended urinary bladder.
--- NOTE | 2016-06-05 10:53 | Diagnostic Imaging Report ---
Indication: Thyroid nodules Technique: Grayscale and duplex images of the thyroid Comparison: Findings: Right thyroid lobe measures 5 cm length x 13.6 cm AP. Left thyroid lobe measures 5.2 cm length x 2.9 cm AP. Both thyroid lobes demonstrate normal echogenicity.. There are multiple nodules bilaterally. The largest of these is on the left, measuring 8 cm long axis dimension. Nodules on the right are smaller, largest measuring 12 mm long axis dimension.. Impression: Multiple large left lobe thyroid nodules, largest measuring 8 cm long axis dimension. Tissue sampling of this should be considered Level smaller right lobe thyroid nodules, measuring up to 12 mm long axis dimension
[2016-06-05 11:21] VITALS: BP 115/75
--- NOTE | 2016-06-05 11:28 | Cardiology Report ---
APPROVED REPORT EXAM: Two-dimensional and M-mode echocardiogram with Doppler and color Doppler. INDICATION Left ventricular function M-Mode DIMENSIONS IVSd1.2 (0.7-1.1cm)Left Atrium (MM)4.5 (1.6-4.0cm) LVDd6.5 (3.5-5.6cm)Aortic Root3.0 (2.0-3.7cm) PWd1.2 (0.7-1.1cm)Aortic Cusp Exc.2.0 (1.5-2.0cm) LVDs6.5 (2.5-4.0cm) PWs1.3 cm Moderate left ventricular enlargement. Global left ventricular hypokinesis. Mid, distal and apical septal dyskinesis. Left ventricular ejection fraction estimated to be 30 %. No left ventricular hypertrophy. Moderate posterior pericardial effusion. Severe left atrial enlargement by 2D. Moderate right atrial and right ventricular function. Focal aortic valve sclerosis with adequate cusp excursion Thickened mitral valve leaflets with normal excursion. Mitral annulus and aortic root calcification. Pulmonic valve not well visualized. Normal tricuspid valve structure. IVC is normal in size with physiologic collapse. A color flow and spectral Doppler study was performed and revealed: Mild aortic regurgitation. Moderate mitral regurgitation. Left ventricular diastolic dysfunction not obtainable due to A-FIB. Trace tricuspid regurgitation. Pulmonic regurgitation present.
--- NOTE | 2016-06-05 12:17 | Diagnostic Imaging Report ---
Indication: DYSPNEA Technique: One view of the chest Comparison: 06/02/2016 Findings: The heart is enlarged. Lungs and pleural spaces are clear. There is no significant change Impression: Cardiomegaly. No acute pulmonary process.
--- NOTE | 2016-06-05 13:28 | Consultation ---
DATE OF CONSULTATION: NOTE: VERY POOR AUDIO QUALITY CONSULTING PHYSICIAN: Craig Marte M.D. REFERRING PHYSICIAN: Reyes Bangura M.D. REASON FOR CONSULTATION: I was asked to see this 66-year-old cancer. PAST MEDICAL HISTORY: . Craig Marte M.D. DR: Moises JOB#: [id number] CC:
[2016-06-05] MEDS: Norco 5mg/325mg tab ORAL PRN (13:54)
[2016-06-05] MEDS ORDERED: Levofloxacin 250mg/D5W 50ml IVPB SCH (14:00)
[2016-06-05] MEDS ORDERED: BENAZEPRIL HCL40 MG ORAL (15:10)
[2016-06-05] MEDS ORDERED: ASPIRIN325 MG ORAL (15:10)
[2016-06-05] MEDS ORDERED: LIPITOR20 MG ORAL (15:10)
--- NOTE | 2016-06-05 15:14 | Pulmonology Progress Note ---
Assessment/Plan Problems: (1) UTI (urinary tract infection) (2) Encephalopathy acute (3) TIA involving right internal carotid artery (4) Goiter (5) CHF (6) CAD (coronary artery disease) (7) Cardiomyopathy Assessment/Plan improving no new complains MRI reviewed need close f/u with primary physician. Subjective ROS Limited/Unobtainable: No Interval Events: doing better Constitutional: Reports: no symptoms HEENT: Repors: no symptoms Respiratory: Reports: no symptoms Allergies: Coded Allergies: CODEINE (Verified Adverse Reaction, Intermediate, 03/19/13) Objective Last 24 Hour Vital Signs Date Time Temp Pulse Resp B/P Pulse Ox O2 Delivery O2 Flow Rate FiO2 06/05/16 12:00 96 06/05/16 11:21 97.5 96 18 115/75 98 Room Air 06/05/16 10:11 96 18 Room Air 06/05/16 08:30 114/75 06/05/16 08:29 71 114/75 06/05/16 08:00 106 06/05/16 07:42 97.9 71 18 114/75 97 Room Air 06/05/16 04:00 98.1 98 18 108/69 95 Room Air 06/05/16 03:53 102 06/05/16 00:00 98.1 101 18 104/70 95 Room Air 06/04/16 23:50 99 06/04/16 21:01 95 101/67 95 06/04/16 21:00 95 101/67 06/04/16 20:00 97.8 104 21 147/96 95 Room Air 06/04/16 19:02 103 06/04/16 18:57 105 18 Room Air 06/04/16 16:00 104 06/04/16 16:00 98.2 98 20 123/91 99 Room Air Intake and Output 06/04/16 06/05/16 19:00 07:00 Intake Total 240 ml 260 ml Balance 240 ml 260 ml Intake Oral 240 ml 260 ml # Voids 2 2 HEENT: normocephalic, atraumatic Respiratory/Chest: chest wall non-tender, lungs clear Cardiovascular: normal peripheral pulses, normal rate Abdomen: normal bowel sounds, soft, non tender Genitourinary: normal external genitalia Extremities: no clubbing Skin: no rash Microbiology Date/Time Source Procedure Growth Status 06/03/16 06:00 Urine,Clean Catch Urine Culture - Preliminary Resulted Laboratory Tests 06/05/16 06:55: White Blood Count 5.1, Red Blood Count 4.64, Hemoglobin 12.5, Hematocrit 40.5, Mean Corpuscular Volume 87, Mean Corpuscular Hemoglobin 27.0, Mean Corpuscular Hemoglobin Concent 30.9L, Red Cell Distribution Width 15.4H, Platelet Count 157 , Mean Platelet Volume 12.8H, Neutrophils (%) (Auto) 49.3, Lymphocytes (%) (Auto ) 36.8, Monocytes (%) (Auto) 8.3, Eosinophils (%) (Auto) 4.3H, Basophils (%) ( Auto) 1.4, Sodium Level 143, Potassium Level 4.4, Chloride Level 103, Carbon Dioxide Level 24, Anion Gap 16H, Blood Urea Nitrogen 20, Creatinine 1.3H, Estimat Glomerular Filtration Rate 49.3, Glucose Level 110H, Calcium Level 9.2, Total Bilirubin 0.6, Aspartate Amino Transf (AST/SGOT) 15, Alanine Aminotransferase (ALT/SGPT) 8, Alkaline Phosphatase 80, Pro-B-Type Natriuretic Peptide 1816H, Total Protein 7.6, Albumin 3.8, Globulin 3.8, Albumin/Globulin Ratio 1.0 Current Medications Medications (Trade) Dose Ordered Sig/Rufina Route PRN Reason Start Time Stop Time Status Last Admin Dose Admin Acetaminophen (Tylenol) 650 mg Q4H PRN ORAL fever 06/03/16 04:45 07/03/16 04:44 Acetaminophen/ Hydrocodone Bitart ([place] 5/325) 1 tab Q4H PRN ORAL Severe Pain (Pain Scale 7-10) 06/03/16 11:15 06/10/16 11:14 06/05/16 13:54 Al Hydroxide/Mg Hydroxide (Mylanta II) 30 ml Q6H PRN ORAL dyspepsia 06/03/16 04:45 07/03/16 04:44 Albuterol/ Ipratropium (DuoNeb 0.5-3(2.5)mg/3ml) 3 ml EVERY 4 HOURS PRN HHN Shortness of Breath 06/03/16 04:45 06/08/16 04:44 Aspirin (ASA) 325 mg DAILY ORAL 06/03/16 09:00 07/03/16 08:59 06/05/16 08:29 Atorvastatin Calcium 20 mg 20 mg BEDTIME ORAL 06/03/16 21:00 07/03/16 20:59 06/04/16 21:04 Benazepril HCl (Lotensin) 20 mg DAILY ORAL 06/03/16 13:00 07/03/16 12:59 06/05/16 08:30 Carvedilol (Coreg) 3.125 mg EVERY 12 HOURS ORAL 06/03/16 14:00 07/03/16 13:59 06/05/16 08:29 Clonidine HCl (Catapres) 0.1 mg Q4H PRN ORAL For High Blood Pressure 06/03/16 04:45 07/03/16 04:44 Dextrose (Dextrose 50%) STAT PRN IV Hypoglycemia 06/03/16 04:45 07/03/16 04:44 Enalaprilat (Vasotec) 2.5 mg Q6H PRN IV sbp more than 200 06/03/16 04:45 07/03/16 04:44 Heparin Sodium (Porcine) (Heparin 5000 units/ml) 5,000 units EVERY 12 HOURS SUBQ 06/03/16 09:00 07/03/16 08:59 06/05/16 08:32 Hydralazine HCl (Apresoline) 20 mg Q4H PRN IV sbp more than 160 06/03/16 04:45 07/03/16 04:44 Labetalol HCl (Normodyne) 20 mg EVERY HOUR PRN IV sbo more than 180 06/03/16 04:45 07/03/16 04:44 Levofloxacin (Levaquin) 50 ml @ 50 mls/hr Q24H IVPB 06/05/16 14:00 06/12/16 13:59 06/05/16 13:54 Lorazepam (Ativan 2mg/ml 1ml) 0.5 mg Q4H PRN IV For Anxiety 06/03/16 04:45 06/10/16 04:44 Nitroglycerin (Ntg) 0.4 mg Q5M X 3 DOSES PRN SL Prn Chest Pain 06/03/16 04:45 07/03/16 04:44 Ondansetron HCl (Zofran) 4 mg Q6H PRN IVP Nausea & Vomiting 06/03/16 04:45 07/03/16 04:44 Polyethylene Glycol (Miralax) 17 gm HSPRN PRN ORAL Constipation 06/03/16 04:45 07/03/16 04:44 Temazepam (Restoril) 15 mg HSPRN PRN ORAL Insomnia 06/03/16 04:45 06/10/16 04:44 ELISABETH RIVAS Jun 05, 2016 15:14
--- NOTE | 2016-06-05 15:56 | Cardiology Progress Note ---
Assessment/Plan Assessment/Plan cva htn hyerglycemia cm history obesity ? thyroid mass? 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 Left coronary artery arises normally. 2. The left main is angiographically normal. 3. The LAD is a major caliber vessel, giving off the major caliber diagonal branch from the proximal segment. There are mild diffuse luminal irregularities causing diffuse 10% to 20% nonobstructive stenosis throughout the LAD. There is no significant obstruction, however. 4. The circumflex artery is a major caliber vessel. The circumflex artery is also angiographically patent without significant obstruction. 5. The right coronary artery arises from right sinus of Valsalva. This is a major caliber and dominant vessel. The patient's coronary artery system is right dominant. Except for the mild 20% to 30% nonobstructive stenosis in its midsegment, the right coronary artery is also an angiographically normal vessel without significant obstruction. 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 have explained that to her allo above was discussed with pt octavia needs to be oan na adn fluid restiction to avoid nsaid if at all possible o minimize use as may affect renal fucntion and chf adn abilityh to take acie Subjective Cardiovascular: Reports: palpitations, Denies: chest pain, lightheadedness Respiratory: Reports: SOB with excertion Gastrointestinal/Abdominal: Denies: abdominal pain Genitourinary: Reports: burning Objective Last 24 Hour Vital Signs Date Time Temp Pulse Resp B/P Pulse Ox O2 Delivery O2 Flow Rate FiO2 06/05/16 12:00 96 06/05/16 11:21 97.5 96 18 115/75 98 Room Air 06/05/16 10:11 96 18 Room Air 06/05/16 08:30 114/75 06/05/16 08:29 71 114/75 06/05/16 08:00 106 06/05/16 07:42 97.9 71 18 114/75 97 Room Air 06/05/16 04:00 98.1 98 18 108/69 95 Room Air 06/05/16 03:53 102 06/05/16 00:00 98.1 101 18 104/70 95 Room Air 06/04/16 23:50 99 06/04/16 21:01 95 101/67 95 06/04/16 21:00 95 101/67 06/04/16 20:00 97.8 104 21 147/96 95 Room Air 06/04/16 19:02 103 06/04/16 18:57 105 18 Room Air 06/04/16 16:00 104 06/04/16 16:00 98.2 98 20 123/91 99 Room Air General Appearance: no apparent distress, alert, obese Neck: supple Cardiovascular: normal rate, regular rhythm Respiratory/Chest: lungs clear, normal breath sounds Abdomen: normal bowel sounds, non tender Extremities: normal range of motion, non-tender, no swelling Intake and Output 06/04/16 06/05/16 19:00 07:00 Intake Total 240 ml 260 ml Balance 240 ml 260 ml Intake Oral 240 ml 260 ml # Voids 2 2 Laboratory Tests Test 06/05/16 06:55 White Blood Count 5.1 K/UL (4.8-10.8) Red Blood Count 4.64 M/UL (4.20-5.40) Hemoglobin 12.5 G/DL (12.0-16.0) Hematocrit 40.5 % (37.0-47.0) Mean Corpuscular Volume 87 FL (80-99) Mean Corpuscular Hemoglobin 27.0 PG (27.0-31.0) Mean Corpuscular Hemoglobin Concent 30.9 G/DL (32.0-36.0) L Red Cell Distribution Width 15.4 % (11.6-14.8) H Platelet Count 157 K/UL (150-450) Mean Platelet Volume 12.8 FL (6.5-10.1) H Neutrophils (%) (Auto) 49.3 % (45.0-75.0) Lymphocytes (%) (Auto) 36.8 % (20.0-45.0) Monocytes (%) (Auto) 8.3 % (1.0-10.0) Eosinophils (%) (Auto) 4.3 % (0.0-3.0) H Basophils (%) (Auto) 1.4 % (0.0-2.0) Sodium Level 143 mEQ/L (135-145) Potassium Level 4.4 mEQ/L (3.4-4.9) Chloride Level 103 mEQ/L (98-107) Carbon Dioxide Level 24 mEQ/L (20-30) Anion Gap 16 (5-15) H Blood Urea Nitrogen 20 mg/dL (7-23) Creatinine 1.3 mg/dL (0.5-0.9) H Estimat Glomerular Filtration Rate 49.3 mL/min (>60) Glucose Level 110 mg/dL (74-106) H Calcium Level 9.2 mg/dL (8.6-10.2) Total Bilirubin 0.6 mg/dL (0.0-1.2) Aspartate Amino Transf (AST/SGOT) 15 U/L (5-40) Alanine Aminotransferase (ALT/SGPT) 8 U/L (3-33) Alkaline Phosphatase 80 U/L (35-104) Pro-B-Type Natriuretic Peptide 1816 pg/mL (0-125) H Total Protein 7.6 g/dL (6.6-8.7) Albumin 3.8 g/dL (3.5-5.2) Globulin 3.8 g/dL Albumin/Globulin Ratio 1.0 (1.0-2.7) Microbiology Date/Time Source Procedure Growth Status 06/03/16 06:00 Urine,Clean Catch Urine Culture - Preliminary Resulted GLENN ARMSTRONG Jun 05, 2016 15:56
[2016-06-05 16:00] VITALS: BP 113/65
--- NOTE | 2016-06-05 16:11 | Neurology Progress Note ---
Interim History Interim History ROS Limited/Unobtainable: No Complaints: l hand clumsy Events: stable Objective Physical Exam Last Vital Signs Date Time Temp Pulse Resp B/P Pulse Ox O2 Delivery O2 Flow Rate FiO2 06/05/16 12:00 96 06/05/16 11:21 97.5 18 115/75 98 Room Air Laboratory Tests Test 06/05/16 06:55 White Blood Count 5.1 K/UL (4.8-10.8) Red Blood Count 4.64 M/UL (4.20-5.40) Hemoglobin 12.5 G/DL (12.0-16.0) Hematocrit 40.5 % (37.0-47.0) Mean Corpuscular Volume 87 FL (80-99) Mean Corpuscular Hemoglobin 27.0 PG (27.0-31.0) Mean Corpuscular Hemoglobin Concent 30.9 G/DL (32.0-36.0) L Red Cell Distribution Width 15.4 % (11.6-14.8) H Platelet Count 157 K/UL (150-450) Mean Platelet Volume 12.8 FL (6.5-10.1) H Neutrophils (%) (Auto) 49.3 % (45.0-75.0) Lymphocytes (%) (Auto) 36.8 % (20.0-45.0) Monocytes (%) (Auto) 8.3 % (1.0-10.0) Eosinophils (%) (Auto) 4.3 % (0.0-3.0) H Basophils (%) (Auto) 1.4 % (0.0-2.0) Sodium Level 143 mEQ/L (135-145) Potassium Level 4.4 mEQ/L (3.4-4.9) Chloride Level 103 mEQ/L (98-107) Carbon Dioxide Level 24 mEQ/L (20-30) Anion Gap 16 (5-15) H Blood Urea Nitrogen 20 mg/dL (7-23) Creatinine 1.3 mg/dL (0.5-0.9) H Estimat Glomerular Filtration Rate 49.3 mL/min (>60) Glucose Level 110 mg/dL (74-106) H Calcium Level 9.2 mg/dL (8.6-10.2) Total Bilirubin 0.6 mg/dL (0.0-1.2) Aspartate Amino Transf (AST/SGOT) 15 U/L (5-40) Alanine Aminotransferase (ALT/SGPT) 8 U/L (3-33) Alkaline Phosphatase 80 U/L (35-104) Pro-B-Type Natriuretic Peptide 1816 pg/mL (0-125) H Total Protein 7.6 g/dL (6.6-8.7) Albumin 3.8 g/dL (3.5-5.2) Globulin 3.8 g/dL Albumin/Globulin Ratio 1.0 (1.0-2.7) General: no acute distress, other - morbid obesity Head: normocophalic, atraumatic Neck: no rigidity Neurologic Exam Mental Status: awake, alert, oriented x4, normal cognition, good mathematical skills, normal recent memory, normal remote memory, preserved visuospatial function Speech: normal speech, no dysarthia Language: normal language, no aphasia Cranial Nerve II: fundus normal, visual rodriguez, no papilledema Cranial Nerves III, IV, : PERRLA, EOMI, pupils Cranial Nerve V: normal facial sensations, temporales function normal, masseters function normal, pterygoids function normal Cranial Nerve VII: other - droop L face Cranial Nerve VIII: normal hearing, no nystagmus Cranial Nerve IX: normal palate elevation, gag response Cranial Nerve X: no voice hoarseness Cranial Nerve XI: SCM symmetric, trapezii function normal Cranial Nerve XII: tongue midline, no tongue atrophy/fasciculations Motor System: other - l hand -5/5 Sensory: normal pinprick Coordination: normal finger to nose bilaterally, other Deep Tendon Reflexes: 0 ankle (L), 0 ankle (R), 0 bicep (L), 0 bicep (R), 0 brachioradialis (L), 0 brachioradialis (R), 0 knee (L), 0 knee (R), 0 tricep (L) , 0 tricep (R) Reflexes: mute plantar (L), mute plantar (R) Impression/Recommendations Problems: (1) Acute R MCA thromboembolic stroke (2) UTI (urinary tract infection) (3) CHF (4) HTN (hypertension) (5) Hyperlipidemia (6) CAD (coronary artery disease) (7) Back pain Status: stable Recommendations #[id number]\ asa 81mg statins ok d/c home BROOKS MARINO Jun 05, 2016 16:11
--- NOTE | 2016-06-05 19:07 | Consultation ---
DATE OF CONSULTATION: 06/03/2016 CARDIAC CONSULTATION CONSULTING PHYSICIAN: Ezio Huerta M.D. REFERRING PHYSICIAN: Reyes Bangura M.D. REASON FOR REFERRAL: History of cardiomyopathy. HISTORY OF PRESENT ILLNESS: The patient is a 66-year-old female with history of multiple medical problems, who presented to the emergency room because of abnormal sensation in the left arm and some problems with her speech, was evaluated by paramedics, and subsequently brought to the emergency room at [facility]. She states that by the time she got here, her blood pressure, which was elevated, got much improved. However, her sensation in the left arm and weakness persistent. She has some persistent left arm sensation right now. Her speech appears to be back to normal, she states. She really has not had any chest pain or pressure. There is no PND. No orthopnea. She does have palpitation on exertion. There is no dizziness on standing. She had one second of the pain, which was sharp sensation on the right side of the chest, but again only one second and that has not recurred any further. PAST MEDICAL HISTORY: Positive for high blood pressure. She has a history having been hospitalized here. She was noted to have cardiomyopathy, congestive heart failure, and history of hypotension. 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 Subsequently, she was followed by physician. Nevertheless, she had some palpitation on exertion. Other medical problems are arthritis; obesity; and thyroid masses, which are being evaluated for. No cancer. No hepatitis or tuberculosis. No asthma. At this time, she does have some renal insufficiency. No anemia. No blood clots anywhere. SOCIAL HISTORY: She used to smoke back in the 70s, does not any more. Drinks alcoholic beverages on rare occasions. No drug use. Lives at home. REVIEW OF SYSTEMS: Gastrointestinal: Denies. Genitourinary: Negative. Pulmonary: Negative. Cardiac: As mentioned in HPI. Constitutional: Negative. Musculoskeletal: She has pains in her hips and her legs. PHYSICAL EXAMINATION: GENERAL: A morbidly obese elderly female, in no apparent distress. NECK: Supple. No jugular venous distention. Carotid upstroke intact. LUNGS: Appear to be clear to auscultation and percussion. CARDIAC: S1 is normal. S2 is normal. Regular rate and rhythm. No heaves or thrills noted. ABDOMEN: Soft and obese. Positive bowel sounds. Nontender. EXTREMITIES: There is no edema. NEUROLOGIC: She is awake, alert, and responsive. Her speech appears to be fluent on evaluation. LABORATORY DATA: Her laboratory values, white count of 5.9, hemoglobin 12.7, and platelet count 144,000. Sodium is 145, potassium 4.5, chloride 104, bicarbonate 26, BUN 20, creatinine 1.2, and glucose of 121. Uric acid is 9.4. Liver function tests are otherwise unremarkable. Albumin is 3.8. Total CK was 150 yesterday, 157 today. Troponin was less than 0.03. Urinalysis was too numerous to count WBCs, 5 to 10 RBCs, and 3+ leukocyte esterase. IMAGING DATA: Imaging performed included a chest x-ray that was performed yesterday that showed cardiomegaly, suspected mild interstitial edema. She has a CT scan of her brain that shows no acute intracranial bleed, midline shift, or mass effect. Mild cerebral atrophy and confluent white matter hypodensities, nonspecific. ASSESSMENT: 1. Relatively transient neurological symptoms, although not completely resolved. 2. Hypertension. 3. History of cardiomyopathy. 4. Renal insufficiency per report. 5. Urinary tract infection. 6. Hyperglycemia. 7. Mild hyperlipidemia. PLAN: Dr. Bangura, this patient was seen in cardiac consultation. The patient does not endorse any signs or symptoms of congestive heart failure, neither does she exhibit any signs. She should have a repeat echocardiogram while she is here and a venous duplex study has already been performed. An EKG performed yesterday, shows basically sinus rhythm with some criteria for left ventricular hypertrophy, T-wave inversions, which may be related to LVH, and first-degree AV block on her EKG. She will have repeat cardiac enzymes checked and further recommendations depending on the results of the findings. The patient will likely be seen by neurologist at your discretion. Carotid duplex has been performed. Results are pending at this time. Statins should be considered in light of her neurological issues as well as aspirin. For her blood pressure, I would consider starting her on some GREG inhibitor if her renal function does allow in light of the possibility of hyperglycemia as well as possibility of cardiomyopathy that she may have had previously. Ezio Huerta M.D. DR: ILDA JOB#: [id number] CC:
[2016-06-05] MEDS: Atorvastatin 20mg tab ORAL SCH (20:46)
--- NOTE | 2016-06-06 02:58 | Geriatric Medicine Prog Note ---
DATE: 06/05/2016 "NOTE: VERY BAD INAUDIBLE AUDIO QUALITY" SUBJECTIVE: Risks and benefits discussed with her today. . ASSESSMENT AND PLAN: Patient is stable for discharge . Craig Marte M.D. DR: ERIK JOB#: [id number] CC:
--- NOTE | 2016-06-06 10:27 | Diagnostic Imaging Report ---
APPROVED REPORT CPT Code: 64596 Vascular Symptoms CVA/TIA: BILATERAL: CCA/BULB - Imaging reveals irregular, minimal plaque in both carotid bulbs. arteries. The Doppler spectral flow analysis is within normal limits throughout the internal and external carotid arteries. VERTEBRALS - Imaging reveals both vertebral arteries to be patent, without evidence of stenosis or steal.
--- NOTE | 2016-06-06 10:27 | Diagnostic Imaging Report ---
APPROVED REPORT CPT Code: 82262 Present Symptoms Comments: R/O DVT BILATERAL: Imaging reveals a patent deep venous system bilaterally. There is no evidence of thrombus within the femoral, popliteal or tibial segments. The greater saphenous veins are also within normal limits. Doppler indicates normal spontaneous flow within these segments.
--- NOTE | 2016-06-06 19:45 | Discharge Summary ---
Discharge Summary Hospital Course Date of Admission Jun 02, 2016 at 22:00 Date of Discharge Jun 05, 2016 at 21:30 Admitting Diagnosis Cerebrovascular accident/transient ischemic attack HPI Angiebhupinder Bird is a 66 year old female who was admitted on Jun 02, 2016 at 22:00 for Cerebrovascular Accident/Transient Ischemic Attack Hospital Course [id number] Discharge Discharge Disposition Patient was discharged to Home with Discharge Diagnoses: Selene Gandhi NP Jun 06, 2016 19:45
--- NOTE | 2016-06-07 00:27 | Discharge Summary 2 SIG ---
DATE OF ADMISSION: 06/02/2016 DATE OF DISCHARGE: 06/05/2016 CONSULTANTS: 1. Ezio Huerta M.D. 2. Craig Marte M.D. 3. Bill Perdomo M.D. BRIEF HOSPITAL COURSE: The patient is a 66-year-old female with history of coronary artery disease, morbid obesity, cardiomyopathy, presented after acute onset of left-sided numbness with a slurred speech that started few hours prior to coming in to ED. CT of the head done at emergency department revealed no acute intracranial pathology. Troponin was negative. The patient had evidence of renal insufficiency with BUN 25, creatinine 1.4, and was admitted for further management. She was seen by Dr. Perdomo and was started on aspirin and atorvastatin 10 mg daily. Neuro examination was normal, was initially assessed to have transient ischemic attack on the right middle cerebral artery distribution. Dr. Huerta was also consulted. The patient had elevated BNP, but no signs or symptoms of congestive heart failure. EKG performed showed sinus rhythm with left ventricular hypertrophy and T-wave inversion, which may be related to LVH and first-degree AV block. She was started on GREG inhibitor. Echocardiogram done showed ejection fraction of 30% with global left ventricular hypokinesis and left ventricular enlargement. She was given diuretics with Lasix 40 mg daily, and was advised need to be on sodium and fluid restriction, and to avoid any NSAIDs to minimize the effect on renal function. She was also given beta aaron. She was advised need for a Zio patch and to follow up with Cardiology as outpatient. Carotid duplex scan showed irregular minimal plaques in both carotids. Vertebral arteries were patent without evidence of stenosis or steal. Dr. Marte was consulted. A renal ultrasound showed extensive right renal calculi with no definite hydronephrosis. MRI was done and showed small cluster of foci in the right parietal lobe consistent with acute infarct. Negative for bleed or mass effect. The patient was continued on aspirin and statin and given physical therapy and occupational therapy. FINAL DIAGNOSES: 1. Acute right MCA thromboembolic stroke. 2. Acute metabolic encephalopathy. 3. Urinary tract infection. 4. Goiter. 5. Coronary artery disease. 6. Cardiomyopathy. 7. Hypertension. 8. Hyperglycemia. 9. Hyperlipidemia. Reyes Bangura M.D. I have been assigned to dictate discharge summary on this account and I was not involved in the patient's management. Selene Gandhi N.P. DR: EDMUNDO JOB#: [id number] CC: RADHA
== END 2016-06-05 21:30 | disposition home health service (06) | DRG 64 ==
LOC: EDBD 20:34 → EMR 21:06 → 2E 22:00 → EDBEDREQ 22:13
DX: I63.9 Cerebral infarction, unspecified (principal); G93.40 Encephalopathy, unspecified; I42.9 Cardiomyopathy, unspecified; Z68.42 Body mass index [BMI] 45.0-49.9, adult; I11.0 Hypertensive heart disease with heart failure; I50.9 Heart failure, unspecified; N39.0 Urinary tract infection, site not specified; E66.01 Morbid (severe) obesity due to excess calories; I25.10 Atherosclerotic heart disease of native coronary artery without angina pectoris; E78.5 Hyperlipidemia, unspecified; E04.9 Nontoxic goiter, unspecified; M54.9 Dorsalgia, unspecified; R73.9 Hyperglycemia, unspecified
CPT/HCPCS: 36415; 70450; 70551; 71010; 76536; 76775; 80053; 80061; 81001; 82436; 82533; 82550; 82553; 83735; 83880; 83930; 83935; 84100; 84133; 84300; 84439; 84443; 84484; 84550; 85025; 85610; 85730; 87086; 87181; 89050; 93005; 93306; 93880; 93970; 94664

== ENCOUNTER 2018-07-07 16:07 | Inpatient (IN) | payer MEDICARE, MEDICAID ==
[~2018-07-07] VITALS: Ht 160 cm; Wt 130.8 kg
[~2018-07-07 16:07] MED LIST changes: +ASPIRIN325 MG ORAL; +BENAZEPRIL HCL40 MG ORAL; +LIPITOR20 MG ORAL
--- NOTE | 2018-07-07 16:30 | NUR ---
ED Nurse Note: Pt came into the ER w/ complaints of flu like symptoms x 2 weeks. Pt denies having pain or hx of asthma. Pt is A + O x4. Ambulatory. Skin warm to touch.
[2018-07-07 16:42] VITALS: BP 93/47
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
--- NOTE | 2018-07-07 17:13 | NUR ---
ED Nurse Note: Xray has been completed.
[2018-07-07 17:34] LABS: ANION GAP 11 mmol/L (5-15); BLOOD UREA NITROGEN 28 mg/dL (7-18); CALCIUM 9.3 MG/DL (8.5-10.1); CARBON DIOXIDE 22 MMOL/L (21-32); CHLORIDE 102 MMOL/L (98-107); CREATININE 2.4 MG/DL (0.55-1.30); POTASSIUM 5.3 MMOL/L (3.5-5.1); SODIUM 135 MMOL/L (136-145)
[2018-07-07 17:47] LABS: HEMATOCRIT 32.3 % (37.0-47.0); HEMOGLOBIN 10.8 G/DL (12.0-16.0); MEAN CORPUSCULAR VOLUME 78 FL (80-99); PLATELET COUNT 245 K/UL (150-450); RED BLOOD COUNT 4.16 M/UL (4.20-5.40); RED CELL DISTRIBUTION WIDTH 13.3 % (11.6-14.8)
[2018-07-07 17:48] LABS: WHITE BLOOD COUNT 29.3 K/UL (4.8-10.8)
[2018-07-07 17:49] LABS: ALANINE AMINOTRANSFERASE 32 U/L (12-78); ALBUMIN 2.6 G/DL (3.4-5.0); ALBUMIN/GLOBULIN RATIO 0.4 (1.0-2.7); ALKALINE PHOSPHATASE 106 U/L (46-116); ASPARTATE AMINO TRANSFERASE 34 U/L (15-37); BILIRUBIN,TOTAL 0.6 MG/DL (0.2-1.0); CKMB 1.9 NG/ML (0.0-3.6); CREATINE KINASE 128 U/L (26-308)
[2018-07-07] MEDS ORDERED: SODIUM CHLORIDE IVLG ONE (18:00)
[2018-07-07] MEDS ORDERED: Piperacillin/Tazobactam 3.375 GM in NS 110 ML IVPB ONE (18:00)
--- NOTE | 2018-07-07 18:16 | NUR ---
ED Nurse Note: Pt went down to CT.
--- NOTE | 2018-07-07 18:17 | NUR ---
ED Nurse Note: Urine still pending. Pt not ready to go to unit.
--- NOTE | 2018-07-07 18:26 | NUR ---
ED Nurse Note: Pt back from CT.
[2018-07-07 18:38] LABS: APPEARANCE,URINE CLOUDY; BILIRUBIN, URINE NEGATIVE (NEGATIVE); GLUCOSE, URINE (UA) NEGATIVE (NEGATIVE); KETONES,URINE 1+ (NEGATIVE); LEUKOCYTE ESTERASE ,URINE 3+ (NEGATIVE); NITRITE,URINE NEGATIVE (NEGATIVE); PH,URINE 5 (4.5-8.0); PROTEIN,URINE 3+ (NEGATIVE); UROBILINOGEN,URINE 1 MG/DL (0.0-1.0)
[2018-07-07 18:40] VITALS: BP 91/56
[2018-07-07 18:44] LABS: COLOR,URINE PALE YELLOW
--- NOTE | 2018-07-07 18:58 | NUR ---
HAND-OFF: Report given to KEVIN Moreno.
--- NOTE | 2018-07-07 19:09 | NUR ---
ED Nurse Note: Received report from Nick BROWN. Pt stable with daughter at bedside. No distress noted. Pt awaiting room on tele unit. Will call again for report. CN made aware.
[2018-07-07 20:00] VITALS: BP 125/76
--- NOTE | 2018-07-07 20:00 | NUR ---
TRANSFER TO FLOOR: Patient transferred to [facility] as ordered, per MD Harper. Report given to Lydia BROWN. Belongings and medications given to Lydia BROWN. Family at bedside during time of transfer.
--- NOTE | 2018-07-07 20:10 | NUR ---
NURSE NOTES: patient received from ER, report given by KEVIN Moreno. patient in no acute distress at this time. patient complains of no pain at this time. patient awake alert and oriented x4. daughter at bedside. bed in lowest position and locked. call light within reach. IV intact and asymptomatic. belongings list signed for and accounted for. patient oriented to room. will continue to monitor.
[2018-07-07] MEDS ORDERED: Miralax 17gm pkt ORAL PRN (20:45)
[2018-07-07] MEDS ORDERED: Morphine Sulfate 2mg/ml Inj(IV/IM USE ONLY) IVP PRN (20:45)
[2018-07-07] MEDS ORDERED: Albuterol/Ipratropium 3ml neb HHN PRN (20:45)
[2018-07-07] MEDS ORDERED: Nitroglycerin Subl 0.4mg tab SL PRN (20:45)
[2018-07-07] MEDS: Heparin 5000 units/ml inj SUBQ SCH (21:09)
[2018-07-07 21:38] LABS: ALANINE AMINOTRANSFERASE 35 U/L (12-78); ALBUMIN 2.5 G/DL (3.4-5.0); ALBUMIN/GLOBULIN RATIO 0.5 (1.0-2.7); ALKALINE PHOSPHATASE 97 U/L (46-116); ANION GAP 10 mmol/L (5-15); ASPARTATE AMINO TRANSFERASE 35 U/L (15-37); BILIRUBIN,TOTAL 0.7 MG/DL (0.2-1.0); BLOOD UREA NITROGEN 29 mg/dL (7-18); CARBON DIOXIDE 22 MMOL/L (21-32); CHLORIDE 105 MMOL/L (98-107); CREATINE KINASE 132 U/L (26-308); CREATININE 2.4 MG/DL (0.55-1.30); PHOSPHORUS 3.1 MG/DL (2.5-4.9); POTASSIUM 5.3 MMOL/L (3.5-5.1); SODIUM 137 MMOL/L (136-145)
[2018-07-07] MEDS ORDERED: Cefepime HCl 2 GM in D5W 110 ML IV SCH (22:00)
[2018-07-07] MEDS ORDERED: Vancomycin 1.5gm Premix IVPB ONE (23:00)
[2018-07-08] MEDS ORDERED: Vancomycin 1 GM in D5W 275 ML IV SCH (00:30)
[2018-07-08 07:10] LABS: HEMATOCRIT 27.3 % (37.0-47.0); MEAN CORPUSCULAR VOLUME 80 FL (80-99); PLATELET COUNT 194 K/UL (150-450); RED CELL DISTRIBUTION WIDTH 13.9 % (11.6-14.8)
[2018-07-08 07:13] LABS: ALANINE AMINOTRANSFERASE 31 U/L (12-78); ALBUMIN 2.2 G/DL (3.4-5.0); ALBUMIN/GLOBULIN RATIO 0.4 (1.0-2.7); ALKALINE PHOSPHATASE 88 U/L (46-116); ANION GAP 10 mmol/L (5-15); ASPARTATE AMINO TRANSFERASE 29 U/L (15-37); BILIRUBIN,TOTAL 0.4 MG/DL (0.2-1.0); BLOOD UREA NITROGEN 32 mg/dL (7-18); CALCIUM 8.3 MG/DL (8.5-10.1); CARBON DIOXIDE 23 MMOL/L (21-32); CHLORIDE 104 MMOL/L (98-107); CREATININE 2.3 MG/DL (0.55-1.30); POTASSIUM 5.2 MMOL/L (3.5-5.1); SODIUM 137 MMOL/L (136-145)
--- NOTE | 2018-07-08 07:16 | NUR ---
HAND-OFF: Report given to lucy mario.
[2018-07-08 07:26] LABS: WHITE BLOOD COUNT 28.4 K/UL (4.8-10.8)
--- NOTE | 2018-07-08 07:30 | NUR ---
NURSE NOTES: Report received from KEVIN Freeman. Pt shows no signs of distress, no SOB, no pain. A+Ox4. Respirations are even and unlabored on room air. IV site is patent, intact, and running fluids @ prescribed rate. Bed is at lowest position, brakes engaged, siderails x3, bed alarm on, and call light within reach. Pt is in stable condition at this time; will continue to monitor.
[2018-07-08] MEDS: Heparin 5000 units/ml inj SUBQ SCH ×2 (08:10→20:32)
[2018-07-08] MEDS ORDERED: Cefepime 1gm in D5W 55ml IVPB SCH (09:00)
--- NOTE | 2018-07-08 09:14 | NUR ---
NURSE NOTES: Made Dr. Bangura aware of decreased blood pressure and WBC of 28. He ordered 1 L bolus of NS. No other new orders. Order noted and carried out. Bolus started.
--- NOTE | 2018-07-08 09:36 | Diagnostic Imaging Report ---
Indication: Abdominal pain Technique: Continuous helical transaxial imaging of the abdomen and pelvis was obtained from the lung bases to the pubic symphysis. No intravenous contrast was administered. Coronal 2-D reformats were also obtained. Automatic Exposure Control was utilized. Total Dose length Product (DLP): 1028.[address] Dose Index Volume (CTDIvol): 19.51 mGy Comparison: none Findings: The study is limited by the nonadministration of intravenous contrast and large body habitus which diminishes image quality. There is a moderate to severe left hydronephrosis demonstrated with a transition at the UPJ due to a 1 cm stone. In addition there is perinephric stranding and enlargement of the left kidney with suggestion of cortical thinning which is a sign of chronic obstruction. The possibility of xanthogranulomatous pyelonephritis should be considered as well. Consider reevaluation with intravenous contrast administration. The right kidney is also abnormal. There are several large staghorn type calculi within the calyces of the right kidney. There are also areas of air present within the calyces. The right ureter is not dilated. The right kidney appears somewhat atrophic. The presence of air suggests either iatrogenic introduction (recent instrumentation such as a ureteroscopy or Mckinley catheter placement) versus infection. Please correlate clinically. Much of the pelvis is a not visualized due to extensive streak artifact from bilateral total hip prosthetics. The heart is enlarged. The aorta is moderately calcified. The gallbladder is not definitely seen. There is suggestion of diverticulosis of the colon. There is narrowing of intervertebral discs and accompanying endplate osteophyte formation. Hypertrophied facet joints also demonstrated.. IMPRESSION: Enlarged hydronephrotic left kidney with cortical thinning and perinephric inflammation secondary to 1 cm obstructing UPJ stone. The obstruction is chronic. 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 Recommend reevaluation with IV contrast. Multiple calyceal staghorn type calculi within the right kidney with presence of air in the collecting system. Consider infection. Atherosclerotic vascular disease. Cardiomegaly Diverticulosis of the colon Nondiagnostic evaluation of the pelvis due to bilateral total hip prosthetics. Degenerative changes of the spine The CT scanner at [facility] is accredited by the [employer] and the scans are performed using dose optimization techniques as appropriate to a performed exam including Automatic Exposure control.
[2018-07-08 10:04] VITALS: BP 87/59
[2018-07-08 10:22] LABS: APPEARANCE,URINE CLOUDY; BILIRUBIN, URINE NEGATIVE (NEGATIVE); COLOR,URINE PALE YELLOW; GLUCOSE, URINE (UA) NEGATIVE (NEGATIVE); KETONES,URINE NEGATIVE (NEGATIVE); LEUKOCYTE ESTERASE ,URINE 3+ (NEGATIVE); NITRITE,URINE POSITIVE (NEGATIVE); PH,URINE 5 (4.5-8.0); PROTEIN,URINE 3+ (NEGATIVE); UROBILINOGEN,URINE NORMAL MG/DL (0.0-1.0)
--- NOTE | 2018-07-08 10:37 | NUR ---
NURSE NOTES: Blood pressure rechecked and is 98/60. Bolus almost finished.
--- NOTE | 2018-07-08 10:40 | NUR ---
P.T Note: P.T evaluation completed and treatment initiated. Please refer to P.T evaluation for current functional status. Pt is alert, oriented x 4 and cooperative. Pt presented generalized weakness and pain on L knee and ankle 4/10 at rest and 8/10 when standing and walking limiting overall functional mobility and safety. Pt currently require MIN a A X 1 for bed mobility and transfers and CGA x 1 using the the FWW for short distance gait. Skilled P.T service is warranted to improve her strength, balance and endurance to increase her mobility independence and safety for return to [facility]. Recommend FWW and 3 in 1 commode and Home P.T. at [place]. Thank you for this referral. Addendum: 07/08/18 at 1059 by RINA MCDONALD PT CORRECTION: PLEASE DISREGARD THE ABOVE P.T NOTES. THIS IS A WRONG ENTRY! THANK YOU.
--- NOTE | 2018-07-08 11:19 | Diagnostic Imaging Report ---
Indication: Dyspnea Comparison: 06/05/2016 A single view chest radiograph was obtained. Findings: Exam limited by body habitus. There is moderate cardiomegaly which appears relatively stable. Pulmonary vascularity is mildly prominent but stable without overt CHF. Bones are unremarkable. IMPRESSION: Cardiomegaly. No acute disease
[2018-07-08 12:00] VITALS: BP 124/65
--- NOTE | 2018-07-08 12:09 | Consultation ---
History of Present Illness General Date patient seen: July 08, 2018 Chief Complaint: General Complaint Present Illness HPI 68 year old female with hx of HTN, renal insufficiency presented to ER with CC of general weakness, decreased appetite Patient reports that she took 3 of her blood pressure medicine prior to coming to ER because whenever she comes to the hospital she always has to stay because of high blood pressure. In ER she was hypotensive and tachycardic. She was diagnosed to have sepsis and admitted to telemetry for further management. Allergies: Coded Allergies: CODEINE (Verified Adverse Reaction, Intermediate, 03/19/13) Medication History Scheduled Aspirin* (Aspirin*), 325 MG ORAL DAILY Atorvastatin Calcium* (Lipitor*), 20 MG ORAL BEDTIME Benazepril Hcl* (Benazepril Hcl*), 20 MG ORAL DAILY Furosemide* (Lasix*), 40 PO DAILY, (Reported) Meloxicam* (Meloxicam*), 15 PO DAILY, (Reported) Metoprolol Tartrate* (Metoprolol Tartrate*), Unknown Dose BID, (Reported) Scheduled PRN Hydrocodone Bit/Acetaminophen 5-325* ([place] 5-325*), 1 TAB ORAL Q6H PRN for For Pain Miscellaneous Medications Diazepam* (Diazepam*), (Reported) Hydrocodone Bit/Acetaminophen 5-500 (Vicodin 5-500), (Reported) Losartan Potassium (Losartan Potassium), (Reported) Patient History Healthcare decision maker N Resuscitation status Full Code Advanced Directive on File Past Medical/Surgical History Past Medical/Surgical History: (1) Chronic renal insufficiency (2) Acute R MCA thromboembolic stroke (3) Goiter (4) Back pain (5) HTN (hypertension) (6) Morbid obesity (7) CAD (coronary artery disease) Review of Systems All Other Systems: negative except mentioned in HPI Physical Exam General Appearance: WD/WN, overweight, obese Lines, tubes and drains: peripheral HEENT: normocephalic, atraumatic Neck: non-tender, normal alignment Respiratory/Chest: chest wall non-tender, lungs clear Breasts: no masses Cardiovascular/Chest: normal peripheral pulses Abdomen: normal bowel sounds, non tender Genitourinary/Rectal: normal genital exam Extremities: normal range of motion Skin Exam: normal pigmentation 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 Last 24 Hour Vital Signs Date Time Temp Pulse Resp B/P (MAP) Pulse Ox O2 Delivery O2 Flow Rate FiO2 07/08/18 11:20 97 18 Room Air 21 07/08/18 10:04 98.0 94 18 87/59 (68) 96 07/08/18 04:00 85 07/08/18 00:00 95 07/07/18 23:30 Room Air 07/07/18 22:00 107 18 Room Air 21 07/07/18 20:00 98.2 20 125/76 (92) 60 07/07/18 20:00 98.1 107 24 97/59 96 Room Air 07/07/18 18:40 98.2 121 31 91/56 96 Room Air 96 07/07/18 16:42 98.3 131 15 93/47 96 Room Air 07/07/18 16:42 131 15 Room Air 96 07/07/18 16:16 98.4 128 16 90 Room Air Intake and Output 07/07/18 07/08/18 19:00 07:00 Intake Total 1620 ml Balance 1620 ml Intake Oral 120 ml IV Total 1500 ml # Voids 2 # Bowel Movements 1 Laboratory Tests Test 07/07/18 17:07 07/07/18 18:05 07/07/18 18:08 07/07/18 20:55 White Blood Count 29.3 K/UL (4.8-10.8) *H Red Blood Count 4.16 M/UL (4.20-5.40) L Hemoglobin 10.8 G/DL (12.0-16.0) L Hematocrit 32.3 % (37.0-47.0) L Mean Corpuscular Volume 78 FL (80-99) L Mean Corpuscular Hemoglobin 26.0 PG (27.0-31.0) L Mean Corpuscular Hemoglobin Concent 33.4 G/DL (32.0-36.0) Red Cell Distribution Width 13.3 % (11.6-14.8) Platelet Count 245 K/UL (150-450) Mean Platelet Volume 9.3 FL (6.5-10.1) Neutrophils (%) (Auto) % (45.0-75.0) Lymphocytes (%) (Auto) % (20.0-45.0) Monocytes (%) (Auto) % (1.0-10.0) Eosinophils (%) (Auto) % (0.0-3.0) Basophils (%) (Auto) % (0.0-2.0) Differential Total Cells Counted 100 Neutrophils % (Manual) 91 % (45-75) H Lymphocytes % (Manual) 3 % (20-45) L Monocytes % (Manual) 2 % (1-10) Eosinophils % (Manual) 0 % (0-3) Basophils % (Manual) 0 % (0-2) Band Neutrophils 4 % (0-8) Platelet Estimate Adequate Platelet Morphology Normal Hypochromasia 1+ Anisocytosis 1+ Sodium Level 135 MMOL/L (136-145) L 137 MMOL/L (136-145) Potassium Level 5.3 MMOL/L (3.5-5.1) H 5.3 MMOL/L (3.5-5.1) H Chloride Level 102 MMOL/L (98-107) 105 MMOL/L (98-107) Carbon Dioxide Level 22 MMOL/L (21-32) 22 MMOL/L (21-32) Anion Gap 11 mmol/L (5-15) 10 mmol/L (5-15) Blood Urea Nitrogen 28 mg/dL (7-18) H 29 mg/dL (7-18) H Creatinine 2.4 MG/DL (0.55-1.30) H 2.4 MG/DL (0.55-1.30) H Estimat Glomerular Filtration Rate 24.2 mL/min (>60) 24.2 mL/min (>60) Glucose Level 208 MG/DL (74-106) H 229 MG/DL (74-106) H Lactic Acid Level 2.30 mmol/L (0.4-2.0) H 1.90 mmol/L (0.66-2.22) Calcium Level 9.3 MG/DL (8.5-10.1) 8.0 MG/DL (8.5-10.1) L Total Bilirubin 0.6 MG/DL (0.2-1.0) 0.7 MG/DL (0.2-1.0) Aspartate Amino Transf (AST/SGOT) 34 U/L (15-37) 35 U/L (15-37) Alanine Aminotransferase (ALT/SGPT) 32 U/L (12-78) 35 U/L (12-78) Alkaline Phosphatase 106 U/L (46-116) 97 U/L (46-116) Total Creatine Kinase 128 U/L (26-308) 132 U/L (26-308) Creatine Kinase MB 1.9 NG/ML (0.0-3.6) Creatine Kinase MB Relative Index 1.4 Troponin I 0.323 ng/mL (0.000-0.056) Pro-B-Type Natriuretic Peptide 8603 pg/mL (0-125) H Total Protein 8.8 G/DL (6.4-8.2) H 7.3 G/DL (6.4-8.2) Albumin 2.6 G/DL (3.4-5.0) L 2.5 G/DL (3.4-5.0) L Globulin 6.2 g/dL 4.8 g/dL Albumin/Globulin Ratio 0.4 (1.0-2.7) L 0.5 (1.0-2.7) L Lipase 160 U/L (73-393) Urine Color Pale yellow Urine Appearance Cloudy Urine pH 5 (4.5-8.0) Urine Specific [place] 1.020 (1.005-1.035) Urine Protein 3+ (NEGATIVE) H Urine Glucose (UA) Negative (NEGATIVE) Urine Ketones 1+ (NEGATIVE) H Urine Blood 5+ (NEGATIVE) H Urine Nitrite Negative (NEGATIVE) Urine Bilirubin Negative (NEGATIVE) Urine Urobilinogen 1 MG/DL (0.0-1.0) H Urine Leukocyte Esterase 3+ (NEGATIVE) H Urine RBC Tntc /HPF (0 - 2) H Urine WBC Tntc /HPF (0 - 2) H Urine Squamous Epithelial Cells Few /LPF (NONE/OCC) Urine Bacteria Many /HPF (NONE) H Uric Acid 7.2 MG/DL (2.6-7.2) Phosphorus Level 3.1 MG/DL (2.5-4.9) Magnesium Level 1.6 MG/DL (1.8-2.4) L Free Thyroxine < 0.10 NG/DL (0.76-1.46) L Test 07/08/18 05:40 07/08/18 09:52 White Blood Count 28.4 K/UL (4.8-10.8) *H Red Blood Count 3.40 M/UL (4.20-5.40) L Hemoglobin 9.0 G/DL (12.0-16.0) L Hematocrit 27.3 % (37.0-47.0) L Mean Corpuscular Volume 80 FL (80-99) Mean Corpuscular Hemoglobin 26.5 PG (27.0-31.0) L Mean Corpuscular Hemoglobin Concent 33.1 G/DL (32.0-36.0) Red Cell Distribution Width 13.9 % (11.6-14.8) Platelet Count 194 K/UL (150-450) Mean Platelet Volume 10.6 FL (6.5-10.1) H Neutrophils (%) (Auto) % (45.0-75.0) Lymphocytes (%) (Auto) % (20.0-45.0) Monocytes (%) (Auto) % (1.0-10.0) Eosinophils (%) (Auto) % (0.0-3.0) Basophils (%) (Auto) % (0.0-2.0) Differential Total Cells Counted 100 Neutrophils % (Manual) 91 % (45-75) H Lymphocytes % (Manual) 5 % (20-45) L Monocytes % (Manual) 4 % (1-10) Eosinophils % (Manual) 0 % (0-3) Basophils % (Manual) 0 % (0-2) Band Neutrophils 0 % (0-8) Platelet Estimate Adequate Platelet Morphology Normal Hypochromasia 2+ Anisocytosis 1+ Spherocytes 1+ Sodium Level 137 MMOL/L (136-145) Potassium Level 5.2 MMOL/L (3.5-5.1) H Chloride Level 104 MMOL/L (98-107) Carbon Dioxide Level 23 MMOL/L (21-32) Anion Gap 10 mmol/L (5-15) Blood Urea Nitrogen 32 mg/dL (7-18) H Creatinine 2.3 MG/DL (0.55-1.30) H Estimat Glomerular Filtration Rate 25.5 mL/min (>60) Glucose Level 159 MG/DL (74-106) H Calcium Level 8.3 MG/DL (8.5-10.1) L Total Bilirubin 0.4 MG/DL (0.2-1.0) Aspartate Amino Transf (AST/SGOT) 29 U/L (15-37) Alanine Aminotransferase (ALT/SGPT) 31 U/L (12-78) Alkaline Phosphatase 88 U/L (46-116) Total Protein 7.5 G/DL (6.4-8.2) Albumin 2.2 G/DL (3.4-5.0) L Globulin 5.3 g/dL Albumin/Globulin Ratio 0.4 (1.0-2.7) L Urine Color Pale yellow Urine Appearance Cloudy Urine pH 5 (4.5-8.0) Urine Specific [place] 1.020 (1.005-1.035) Urine Protein 3+ (NEGATIVE) H Urine Glucose (UA) Negative (NEGATIVE) Urine Ketones Negative (NEGATIVE) Urine Blood 5+ (NEGATIVE) H Urine Nitrite Positive (NEGATIVE) H Urine Bilirubin Negative (NEGATIVE) Urine Urobilinogen Normal MG/DL (0.0-1.0) Urine Leukocyte Esterase 3+ (NEGATIVE) H Urine RBC 15-20 /HPF (0 - 2) H Urine WBC Tntc /HPF (0 - 2) H Urine Squamous Epithelial Cells Few /LPF (NONE/OCC) Urine Bacteria Many /HPF (NONE) H Urine Eosinophils None seen (NONE SEEN) Urine Osmolality 464 mOsm/kg (429-449) H Urine Random Sodium 37 mmol/L (20-110) Microbiology Date/Time Source Procedure Growth Status 07/07/18 18:08 Urine,Clean Catch Urine Culture - Preliminary Gram Negative Michael Resulted Height (Feet): 5 Height (Inches): 3.00 Weight (Pounds): 270 Medications Current Medications Medications (Trade) Dose Ordered Sig/Rufina Route PRN Reason Start Time Stop Time Status Last Admin Dose Admin Acetaminophen (Tylenol) 650 mg Q4H PRN ORAL fever 07/07/18 20:45 08/06/18 20:44 Albuterol/ Ipratropium (Albuterol/ Ipratropium) 3 ml Q4H PRN HHN Shortness of Breath 07/07/18 20:45 07/12/18 20:44 Cefepime HCl 1 gm/ Dextrose 55 ml @ 110 mls/hr Q24H IVPB 07/08/18 09:00 07/15/18 08:59 07/08/18 08:09 Dextrose (Dextrose 50%) 25 ml Q30M PRN IV Hypoglycemia 07/07/18 20:45 08/06/18 20:44 Dextrose (Dextrose 50%) 50 ml Q30M PRN IV Hypoglycemia 07/07/18 20:45 08/06/18 20:44 Heparin Sodium (Porcine) (Heparin 5000 units/ml) 5,000 units EVERY 12 HOURS SUBQ 07/07/18 21:00 08/06/18 20:59 07/08/18 08:10 Morphine Sulfate (Morphine Sulfate) 2 mg Q4H PRN IVP Moderate Pain (Pain Scale 4-6) 07/07/18 20:45 07/14/18 20:44 Nitroglycerin (Ntg) 0.4 mg Q5M PRN SL Prn Chest Pain 07/07/18 20:45 08/06/18 20:44 Ondansetron HCl (Zofran) 4 mg Q6H PRN IVP Nausea & Vomiting 07/07/18 20:45 08/06/18 20:44 Polyethylene Glycol (Miralax) 17 gm DAILYPRN PRN ORAL Constipation 07/07/18 20:45 08/06/18 20:44 Sodium Chloride 1,000 ml @ 100 mls/hr Q10H IVLG 07/08/18 20:33 08/07/18 20:32 07/08/18 07:58 Temazepam (Restoril) 15 mg HSPRN PRN ORAL Insomnia 07/07/18 20:45 07/14/18 20:44 Vancomycin HCl (Vanco rx to dose) 1 ea DAILY PRN MISC Per rx protocol 07/07/18 21:00 08/06/18 20:59 Assessment/Plan Problem List: (1) Sepsis ICD Codes: A41.9 - Sepsis, unspecified organism SNOMED: 51505327 (2) ATN (acute tubular necrosis) ICD Codes: N17.0 - Acute kidney failure with tubular necrosis SNOMED: 36752974 (3) Hydronephrosis ICD Codes: N13.30 - Unspecified hydronephrosis SNOMED: 54337881 (4) Cardiomyopathy ICD Codes: I42.9 - Cardiomyopathy SNOMED: 26656879 (5) CAD (coronary artery disease) ICD Codes: I25.10 - CAD (coronary artery disease) SNOMED: 788520140 (6) Morbid obesity ICD Codes: E66.01 - Morbid obesity SNOMED: 174154704 (7) HTN (hypertension) ICD Codes: I10 - HTN (hypertension) SNOMED: 34591222 Assessment/Plan: IV fluids jackson cultures Urology evaluation for obstructing stone echocardiogram to assess EF monitor BP resume BP meds, once bp is better broad spectrum antibiotics check electrolytes daily. dvt prophylaxis. Reyes Bangura MD July 08, 2018 12:09
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
[2018-07-08] MEDS ORDERED: HYDROcodone/Acetamin 5/325 tab ORAL PRN (12:15)
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
[2018-07-08] MEDS: Docusate 100mg cap ORAL SCH ×2 (12:28→18:00)
--- NOTE | 2018-07-08 12:39 | NUR ---
NURSE NOTES: Made Dr. Bangura aware of pt having 6 beats of V-tach. Per Dr. Bangura, he let Dr. Huerta know and told Dr. Huerta to see the patient. No new orders given.
--- NOTE | 2018-07-08 12:40 | NUR ---
NURSE NOTES: Blood culture shows gram variable rods. Left message with Dr. Tena of ID about results; awaiting response and any new orders.
--- NOTE | 2018-07-08 12:47 | NUR ---
NURSE NOTES: Dr. Tena aware of blood culture result; no new orders given.
[2018-07-08] MEDS: Meropenem 500 MG in NS 55 ML IVPB SCH (14:45)
[2018-07-08] MEDS: HYDROcodone/Acetamin 5/325 tab ORAL PRN ×2 (14:56→17:59)
[2018-07-08 16:00] VITALS: BP 101/63
--- NOTE | 2018-07-08 16:21 | NUR ---
CASE MANAGEMENT:REVIEW 07/07/18 68 YR OLD FEMALE PRESENTED TO ER CC: WEAKNESS AND NOT FEELING WELL. NO APPETITE X2 WEEKS SI: SEPSIS. UTI. CHF 98.4 128 16 91/56 90% ON RA WBC+29.3 H/H-10.8/32.3 K+5.3 BUN+28 CR+2.4 IS: 1L NS IV ZOSYN CHEST XRAY BLOOD CX :TO TELEMETRY INTERQUAL CRITERIA MET 07/08/18 IS: IV VANCO X1 IV CEFEPIME Q24 1L NS BOLUS IV ALBUMIN X1 : TELEMETRY
--- NOTE | 2018-07-08 18:26 | History & Physical ---
History and Physical History & Physicial Dictated for Int Med-Dr Harper no. [id number]. Chencho Haddad MD July 08, 2018 18:26
--- NOTE | 2018-07-08 19:19 | Cardiology Progress Note ---
Assessment/Plan Assessment/Plan cm non ischemic nephrolithiasis pyelonephritics obesity hyperlipidemia chronic chf nsvt cri wbc noted iv abx not in acute chf yet keep on chf meds when bp improves did not tolerate bb due to fatigue had nsvt mg supplement low dose cath at [facility] 2016 non sig cad ekg note sinsu tachy due to infection she used to be on clinidine watch fo with drawl htn full note dictated Objective Last 24 Hour Vital Signs Date Time Temp Pulse Resp B/P (MAP) Pulse Ox O2 Delivery O2 Flow Rate FiO2 07/08/18 17:21 Room Air 07/08/18 16:00 97 07/08/18 16:00 97.9 100 18 101/63 (76) 100 07/08/18 12:00 97.7 93 18 124/65 (84) 100 07/08/18 12:00 100 07/08/18 11:20 97 18 Room Air 21 07/08/18 10:04 98.0 94 18 87/59 (68) 96 07/08/18 09:00 Room Air 07/08/18 08:00 92 07/08/18 04:00 85 07/08/18 00:00 95 07/07/18 23:30 Room Air 07/07/18 22:00 107 18 Room Air 21 07/07/18 20:00 98.2 20 125/76 (92) 60 07/07/18 20:00 98.1 107 24 97/59 96 Room Air Intake and Output 07/07/18 07/08/18 19:00 07:00 Intake Total 1620 ml Balance 1620 ml Intake Oral 120 ml IV Total 1500 ml # Voids 2 # Bowel Movements 1 Laboratory Tests Test 07/07/18 20:55 07/08/18 05:40 07/08/18 09:52 07/08/18 15:49 Sodium Level 137 MMOL/L (136-145) 137 MMOL/L (136-145) Potassium Level 5.3 MMOL/L (3.5-5.1) H 5.2 MMOL/L (3.5-5.1) H Chloride Level 105 MMOL/L (98-107) 104 MMOL/L (98-107) Carbon Dioxide Level 22 MMOL/L (21-32) 23 MMOL/L (21-32) Anion Gap 10 mmol/L (5-15) 10 mmol/L (5-15) Blood Urea Nitrogen 29 mg/dL (7-18) H 32 mg/dL (7-18) H Creatinine 2.4 MG/DL (0.55-1.30) H 2.3 MG/DL (0.55-1.30) H Estimat Glomerular Filtration Rate 24.2 mL/min (>60) 25.5 mL/min (>60) Glucose Level 229 MG/DL (74-106) H 159 MG/DL (74-106) H Uric Acid 7.2 MG/DL (2.6-7.2) Calcium Level 8.0 MG/DL (8.5-10.1) L 8.3 MG/DL (8.5-10.1) L Phosphorus Level 3.1 MG/DL (2.5-4.9) Magnesium Level 1.6 MG/DL (1.8-2.4) L Total Bilirubin 0.7 MG/DL (0.2-1.0) 0.4 MG/DL (0.2-1.0) Aspartate Amino Transf (AST/SGOT) 35 U/L (15-37) 29 U/L (15-37) Alanine Aminotransferase (ALT/SGPT) 35 U/L (12-78) 31 U/L (12-78) Alkaline Phosphatase 97 U/L (46-116) 88 U/L (46-116) Total Creatine Kinase 132 U/L (26-308) Total Protein 7.3 G/DL (6.4-8.2) 7.5 G/DL (6.4-8.2) Albumin 2.5 G/DL (3.4-5.0) L 2.2 G/DL (3.4-5.0) L Globulin 4.8 g/dL 5.3 g/dL Albumin/Globulin Ratio 0.5 (1.0-2.7) L 0.4 (1.0-2.7) L Free Thyroxine < 0.10 NG/DL (0.76-1.46) L White Blood Count 28.4 K/UL (4.8-10.8) *H Red Blood Count 3.40 M/UL (4.20-5.40) L Hemoglobin 9.0 G/DL (12.0-16.0) L Hematocrit 27.3 % (37.0-47.0) L Mean Corpuscular Volume 80 FL (80-99) Mean Corpuscular Hemoglobin 26.5 PG (27.0-31.0) L Mean Corpuscular Hemoglobin Concent 33.1 G/DL (32.0-36.0) Red Cell Distribution Width 13.9 % (11.6-14.8) Platelet Count 194 K/UL (150-450) Mean Platelet Volume 10.6 FL (6.5-10.1) H Neutrophils (%) (Auto) % (45.0-75.0) Lymphocytes (%) (Auto) % (20.0-45.0) Monocytes (%) (Auto) % (1.0-10.0) Eosinophils (%) (Auto) % (0.0-3.0) Basophils (%) (Auto) % (0.0-2.0) Differential Total Cells Counted 100 Neutrophils % (Manual) 91 % (45-75) H Lymphocytes % (Manual) 5 % (20-45) L Monocytes % (Manual) 4 % (1-10) Eosinophils % (Manual) 0 % (0-3) Basophils % (Manual) 0 % (0-2) Band Neutrophils 0 % (0-8) Platelet Estimate Adequate Platelet Morphology Normal Hypochromasia 2+ Anisocytosis 1+ Spherocytes 1+ Urine Color Pale yellow Urine Appearance Cloudy Urine pH 5 (4.5-8.0) Urine Specific [place] 1.020 (1.005-1.035) Urine Protein 3+ (NEGATIVE) H Urine Glucose (UA) Negative (NEGATIVE) Urine Ketones Negative (NEGATIVE) Urine Blood 5+ (NEGATIVE) H Urine Nitrite Positive (NEGATIVE) H Urine Bilirubin Negative (NEGATIVE) Urine Urobilinogen Normal MG/DL (0.0-1.0) Urine Leukocyte Esterase 3+ (NEGATIVE) H Urine RBC 15-20 /HPF (0 - 2) H Urine WBC Tntc /HPF (0 - 2) H Urine Squamous Epithelial Cells Few /LPF (NONE/OCC) Urine Bacteria Many /HPF (NONE) H Urine Eosinophils None seen (NONE SEEN) Urine Osmolality 464 mOsm/kg (429-449) H Urine Random Sodium 37 mmol/L (20-110) Stool Occult Blood Pending Microbiology Date/Time Source Procedure Growth Status 07/07/18 17:00 Blood Blood Culture - Preliminary Resulted 07/07/18 16:50 Blood Blood Culture - Preliminary Resulted 07/07/18 18:08 Urine,Clean Catch Urine Culture - Preliminary Gram Negative Michael Resulted Ezio Huerta MD July 08, 2018 19:19
--- NOTE | 2018-07-08 19:24 | NUR ---
NURSE NOTES: Received report from Bradley Huerta RN. Patient is awake in bed, A/O x4. Sinus tach on chief counsel. No s/s of acute distress at this time. Saturating well on room air. Mckinley catheter intact and draining well to gravity. Left wrist 20g IV, intact and patent, running NS @ 100 cc/hr. Bed locked in lowest position with side rails up x2. Call light left within reach. Will continue to monitor.
--- NOTE | 2018-07-08 19:24 | NUR ---
HAND-OFF: Report given to KEVIN Rojas. Pt is in stable condition at this time; plan of care endorsed.
[2018-07-08 20:00] VITALS: BP 130/77
--- NOTE | 2018-07-08 22:15 | Consultation ---
DATE OF CONSULTATION: 07/08/2018 NOTE: INCOMPLETE DICTATION CARDIOLOGY CONSULTATION CONSULTING PHYSICIAN: Ezio Huerta M.D. REFERRING PHYSICIAN: Reyes Bangura M.D. REASON FOR REFERRAL: Ventricular arrhythmia. HISTORY OF PRESENT ILLNESS: This is an elderly female, who is known to me from prior evaluation hospitalization in office visit. The patient presented to the hospital because overall not feeling good. She indicated that she had a cold that she is basically in bed for couple of weeks and became generalized weakness and decreased appetite, and she has some pain in her back on all the way down to her legs and she initially thought it was sciatica and she had some elevated blood pressure when she came to the hospital. She really has not had any chest pain. She has not been feeling good, but she states she is not short of breath as that she had been previously with congestive heart failure or just generalized weakness. She sleeps in bed. She uses one pillow. There is no PND or orthopnea. There is no dizziness or lightheadedness. PAST MEDICAL HISTORY: Positive for history of cardiomyopathy; heart failure; essential hypertension; hyperlipidemia; thyroid nodule; history of coronary artery disease, nonobstructive on catheterization at [facility] in 2017; history of hyperglycemia. She has history of systemic hypertension and eventually history of hypotension, cardiomyopathy with ejection fraction 20 to 25%, obesity, arthritis, thyroid mass, right MCA and thrombotic stroke, metabolic encephalopathy, rheumatoid arthritis, osteoarthritis, and sciatica. Catheterization in 2016 appeared to be normal. LAD, there is mild diffuse luminal irregularities causing approximately 10 to 20% circumflex without significant obstruction and right coronary artery, 20 to 30% nonobstructive stenosis is noted. SOCIAL HISTORY: She used to smoke back in the 70s, does not any more. Drinks alcoholic beverages on rare occasions. No drug use. She lives at home. REVIEW OF SYSTEMS: GASTROINTESTINAL: She has had some nausea, but no vomiting. No diarrhea. She has some loose stools. GENITOURINARY: Some discomfort when she wipes herself. Otherwise, no burning or blood in the urine. PULMONARY: Some coughing. She just attributes it to her cold. CONSTITUTIONAL: Some chills and low-grade fevers, otherwise negative. NEUROLOGICAL: Sciatica pain is noted. PHYSICAL EXAMINATION: GENERAL: Shows to be elderly female, in no respiratory distress, overweight. NECK: Supple. No jugular venous distention. LUNGS: Clear to auscultation and percussion. CARDIAC: S1 is normal. S2 is normal. Regular rate and rhythm. No heaves, thrills, gallops, or rubs are noted. ABDOMEN: Soft, nontender. Positive bowel sounds. EXTREMITIES: There is really no significant edema. NEUROLOGICAL: She is awake, alert, responsive, in no apparent respiratory distress. LABORATORY AND DIAGNOSTIC DATA: Laboratory values, white count is 28.4 with hemoglobin 9 and platelet count of 194,000. Sodium is 137, potassium 5.2, chloride 104, bicarbonate 23, BUN of 32, creatinine 2.3, and glucose of 159. Her calcium is 8.3. Her lactic acid initially is 2.3, subsequent 1.9. Troponin at the time of admission was 0.323 and free T4 was less than 0.1. Ezio Huerta M.D. DR: SONIA JOB#: [id number] CC:
[2018-07-09] VITALS (13 sets, daily range): BP systolic 111–148; BP diastolic 61–99
--- NOTE | 2018-07-09 01:30 | History and Physical Report ---
DATE OF ADMISSION: 07/08/2018 CHIEF COMPLAINT: The patient is a 68-year-old female, who presents with a chief complaint of "lethargy and flu symptoms." HISTORY OF PRESENT ILLNESS: Began on Saturday. The patient began to experience back pain. The patient also was having chills. The patient now complains of increased fatigue. The patient also complains of subjective fevers and chills. The patient presented to [place] emergency room. The patient was found to have leukocytosis. The patient was also found to have urinary tract infection. The patient is admitted for urinary tract infection to rule out pyelonephritis. REVIEW OF SYSTEMS: CONSTITUTIONAL: The patient denies weight loss or weight gain. The patient complains of subjective fevers and chills as above. HEENT: The patient denies ear or throat pain. The patient denies headache. CARDIOVASCULAR: The patient denies palpitations or chest pain. CHEST: The patient denies wheeze or shortness of breath. ABDOMINAL: The patient denies nausea, vomiting, diarrhea, or constipation. GENITOURINARY: The patient denies dysuria or increased frequency of urination. NEUROMUSCULAR: The patient denies seizures or generalized weakness. PAST MEDICAL HISTORY: Significant for, 1. Hypertension. 2. Congestive heart failure. 3. Cerebrovascular disease, status post cerebrovascular accident in 2017. 4. Hypercholesterolemia. 5. Osteoarthritis. PAST SURGICAL HISTORY: Significant for, 1. Bilateral hip replacement. 2. Left ankle surgery secondary to tendon repair. CURRENT MEDICATIONS: 1. Aspirin 325 mg one tablet p.o. daily. 2. Atorvastatin 20 mg p.o. at bedtime. 3. Benazepril 20 mg p.o. daily. 4. Lasix 40 mg p.o. daily. 5. [place] 5/325 mg one tablet p.o. q.6 h. p.r.n. 6. Losartan 25 mg p.o. daily. 7. Meloxicam 15 mg p.o. daily. 8. Metoprolol 50 mg p.o. twice daily. ALLERGIES: Codeine. SOCIAL HISTORY: The patient is single and lives with her adult daughter. The patient denies tobacco use having quit in the 70s. The patient denies alcohol use. PHYSICAL EXAMINATION: VITAL SIGNS: Temperature 98.4, respirations 16, pulse 128, and blood pressure 93/47. GENERAL: The patient is a well-developed and well-nourished slightly obese female, in no apparent distress. HEENT: Eyes, pupils are equal and responsive to light and accommodation. Extraocular movements are intact. NECK: Supple without lymphadenopathy. CHEST: Lungs are clear to auscultation bilaterally without wheezes or rales. CARDIOVASCULAR: Regular rhythm and rate. S1 and S2 are normal without murmurs, rubs, or gallops. ABDOMEN: Soft, nontender, and nondistended. Positive bowel sounds. No evidence of hepatosplenomegaly. Currently, no rebound or guarding noted. EXTREMITIES: Negative for clubbing, cyanosis, or edema. RECTAL/GENITAL: Not performed. NEUROLOGIC: Cranial nerves II through XII are grossly intact without focal deficits. Motor strength is 5/5 bilaterally. Deep tendon reflexes are 2+ plantar. LABORATORY STUDIES: WBC 29.3, hemoglobin 10.8, hematocrit 32.3, and platelets 245,000 . Sodium 135, potassium 5.3, chloride 102, CO2 22, BUN 28, creatinine 2.4, and glucose 208. Urinalysis showed 3+ protein, 1+ ketones, 5+ blood, 3+ leukocyte esterase, rbc's too numerous to count, and wbc's too numerous to count. A CT scan of the abdomen and pelvis revealed left hydronephrosis with chronic UPJ appearing stone. ASSESSMENT: This is a 68-year-old female. 1. Generalized weakness. 2. Urinary tract infection. 3. Probable sepsis. 4. Leukocytosis. 5. Left hydronephrosis. 6. Left UPJ stone. 7. Hypertension. 8. Congestive heart failure. 9. Cerebrovascular disease. 10. Hypercholesterolemia. TREATMENT: 1. Urinary tract infection. The patient has been started empirically on meropenem and cefepime. Urine culture is pending. An Infectious Disease consultation has been obtained with Dr. Tena. Await urine culture results. 2. Sepsis. 3. Leukocytosis. 4. Generalized weakness. 5. Left hydronephrosis/left UPJ stone. An Urology consultation has been obtained with Dr. Savage. 6. Hypertension. The patient is currently hypotensive. Hold antihypertensive medications as above. 7. Congestive heart failure. 8. Cerebrovascular disease. 9. Hypercholesterolemia. Chencho Haddad M.D. DR: MEGAN JOB#: [id number] CC:
--- NOTE | 2018-07-09 01:50 | NUR ---
NURSE NOTES: Assisted patient to restroom for BM. Patient assisted back to bed. Patient remains stable at this time with no s/s of acute distress noted, will continue to monitor.
[2018-07-09] MEDS: Meropenem 500 MG in NS 55 ML IVPB SCH ×2 (01:55→14:00)
[2018-07-09 05:54] LABS: HEMATOCRIT 27.8 % (37.0-47.0); HEMOGLOBIN 9.3 G/DL (12.0-16.0); MEAN CORPUSCULAR VOLUME 79 FL (80-99); PLATELET COUNT 228 K/UL (150-450); RED BLOOD COUNT 3.51 M/UL (4.20-5.40)
[2018-07-09 06:02] LABS: INR 1.1 (0.9-1.1); WHITE BLOOD COUNT 23.8 K/UL (4.8-10.8)
[2018-07-09 06:30] LABS: ALANINE AMINOTRANSFERASE 32 U/L (12-78); ALBUMIN 2.4 G/DL (3.4-5.0); ALBUMIN/GLOBULIN RATIO 0.5 (1.0-2.7); ALKALINE PHOSPHATASE 90 U/L (46-116); ANION GAP 10 mmol/L (5-15); ASPARTATE AMINO TRANSFERASE 27 U/L (15-37); BILIRUBIN,TOTAL 0.3 MG/DL (0.2-1.0); BLOOD UREA NITROGEN 28 mg/dL (7-18); CALCIUM 8.2 MG/DL (8.5-10.1); CARBON DIOXIDE 21 MMOL/L (21-32); CHLORIDE 106 MMOL/L (98-107); CHOLESTEROL 150 MG/DL (< 200); CREATINE KINASE 87 U/L (26-308); CREATININE 1.8 MG/DL (0.55-1.30); FERRITIN 334 NG/ML (8-388); GAMMA GLUTAMYL TRANSPEPTIDASE 32 U/L (5-85); HDL CHOLESTEROL 15 MG/DL (40-60); PHOSPHORUS 3.1 MG/DL (2.5-4.9); SODIUM 137 MMOL/L (136-145); TRIGLYCERIDES 120 MG/DL (30-150)
[2018-07-09 06:51] LABS: % IRON SATURATION 11 % (15-50); IRON 17 ug/dL (50-175); TOTAL IRON BINDING CAPACITY 156 ug/dL (250-450)
--- NOTE | 2018-07-09 07:08 | NUR ---
HAND-OFF: CORRECTION REPORT GIVEN TO Bradley MARLEY RN; not Quinn Hallman RN.
--- NOTE | 2018-07-09 07:08 | NUR ---
NURSE NOTES: Report received from KEVIN Rojas. Pt shows no signs of distress, no SOB, no pain. Pt complaining of discomfort from her hills. A+Ox4. Respirations are even and unlabored on room air. IV site is patent, intact, and saline locked. Bed is at lowest position, brakes engaged, siderails x3, bed alarm on, and call light within reach. Pt is in stable condition at this time; will continue to monitor.
--- NOTE | 2018-07-09 07:08 | NUR ---
HAND-OFF: Report given to Quinn Hallman RN. Addendum: 07/09/18 at 0728 by ZAC RUFF RN CORRECTION : REPORT GIVEN TO Bradley MARLEY RN; not Quinn Hallman RN.
[2018-07-09] MEDS: HYDROcodone/Acetamin 5/325 tab ORAL PRN (07:45)
[2018-07-09] MEDS: Heparin 5000 units/ml inj SUBQ SCH ×2 (08:12→20:34)
[2018-07-09] MEDS: Docusate 100mg cap ORAL SCH ×3 (08:13→18:00)
[2018-07-09] MEDS ORDERED: HYDROcodone/Acetamin 5/325 tab ORAL PRN ×2 (09:00→15:30)
[2018-07-09] MEDS ORDERED: Morphine Sulfate 2mg/ml Inj(IV/IM USE ONLY) IVP PRN (09:00)
--- NOTE | 2018-07-09 10:35 | Nephrology Progress Note ---
Assessment/Plan Problem List: (1) ATN (acute tubular necrosis) (2) Chronic renal insufficiency (3) Hydronephrosis (4) Morbid obesity (5) Diabetes mellitus (6) Nephrolithiasis Assessment Acute renal failure : On Diuretics , Arnold Inhs, Meloxicam ? CKD Underlying UTI - Sepsis Morbid Obesity CHF HTN, Currently Low BP Anemia Plan Antibiotics Fluid challenge hills , I&O 24 h u for Ca Uric acid Anemia sinha Urology eval add Imdure and Lopressor per orders Enlarged hydronephrotic left kidney with cortical thinning and perinephric inflammation secondary to 1 cm obstructing UPJ stone. The obstruction is chronic. Multiple calyceal staghorn type calculi within the right kidney with presence of air in the collecting system. Consider infection. Atherosclerotic vascular disease. Cardiomegaly Diverticulosis of the colon Nondiagnostic evaluation of the pelvis due to bilateral total hip prosthetics. Degenerative changes of the spine Subjective ROS Limited/Unobtainable: No Constitutional: Reports: malaise Objective Objective Last 24 Hour Vital Signs Date Time Temp Pulse Resp B/P (MAP) Pulse Ox O2 Delivery O2 Flow Rate FiO2 07/09/18 08:00 98.3 116 20 144/86 (105) 95 07/09/18 06:50 114 166/102 07/09/18 04:00 97.9 109 18 144/99 (114) 98 07/09/18 03:00 107 07/09/18 00:48 110 07/09/18 00:00 97.4 88 18 134/72 (92) 97 07/08/18 21:00 Room Air 07/08/18 20:00 97.3 107 19 130/77 (94) 97 07/08/18 20:00 102 18 Room Air 21 07/08/18 19:04 106 07/08/18 17:21 Room Air 07/08/18 16:00 97 07/08/18 16:00 97.9 100 18 101/63 (76) 100 07/08/18 12:00 97.7 93 18 124/65 (84) 100 07/08/18 12:00 100 07/08/18 11:20 97 18 Room Air 21 Intake and Output 07/08/18 07/09/18 18:59 06:59 Intake Total 3193 ml 1430 ml Output Total 900 ml Balance 3193 ml 530 ml Intake Oral 720 ml IV Total 2473 ml 1430 ml Output Urine Total 900 ml # Voids 3 # Bowel Movements 4 Laboratory Tests 07/08/18 15:49: Stool Occult Blood Negative 07/09/18 05:26: White Blood Count 23.8*H, Red Blood Count 3.51L, Hemoglobin 9.3L, Hematocrit 27.8L, Mean Corpuscular Volume 79L, Mean Corpuscular Hemoglobin 26.3L, Mean Corpuscular Hemoglobin Concent 33.3, Red Cell Distribution Width 14.0, Platelet Count 228, Mean Platelet Volume 10.6H, Neutrophils (%) (Auto) , Lymphocytes (%) (Auto) , Monocytes (%) (Auto) , Eosinophils (%) (Auto) , Basophils (%) (Auto) , Neutrophils % (Manual) [Pending], Lymphocytes % (Manual) [Pending], Platelet Estimate [Pending], Platelet Morphology [Pending], Erythrocyte Sedimentation Rate 110H, Reticulocyte Count [Pending], Prothrombin Time 11.7H, Prothromb Time International Ratio 1.1, Activated Partial Thromboplast Time 30, Sodium Level 137, Potassium Level 5.0, Chloride Level 106, Carbon Dioxide Level 21, Anion Gap 10, Blood Urea Nitrogen 28H, Creatinine 1.8H, Estimat Glomerular Filtration Rate 33.7, Glucose Level 137H, Hemoglobin A1c 6.4H, Lactic Acid Level 0.60, Uric Acid 6.3, Calcium Level 8.2L, Phosphorus Level 3.1, Magnesium Level 1.8, Iron Level 17L, Total Iron Binding Capacity 156L, Percent Iron Saturation 11L, Unsaturated Iron Binding 139, Ferritin 334, Total Bilirubin 0.3, Gamma Glutamyl Transpeptidase 32, Aspartate Amino Transf (AST/SGOT) 27, Alanine Aminotransferase (ALT/SGPT) 32, Alkaline Phosphatase 90, Lactate Dehydrogenase 189, Total Creatine Kinase 87, Troponin I 0.130H, C-Reactive Protein, Quantitative 20.1H, Pro-B-Type Natriuretic Peptide 9649H, Total Protein 7.6, Albumin 2.4L, Globulin 5.2, Albumin/Globulin Ratio 0.5L, Triglycerides Level 120 , Cholesterol Level 150, LDL Cholesterol 97, HDL Cholesterol 15L, Cholesterol/ HDL Ratio 10.0H, Lipase 162, Carcinoembryonic Antigen [Pending], Vitamin B12 Level 354, Folate 4.9L, Thyroid Stimulating Hormone (TSH) 0.651, Cortisol AM Sample [Pending] Height (Feet): 5 Height (Inches): 3.00 Weight (Pounds): 288 General Appearance: no apparent distress Cardiovascular: tachycardia Respiratory/Chest: decreased breath sounds Abdomen: other - obese Librado Garcia MD July 09, 2018 10:35
[2018-07-09] MEDS ORDERED: Imdur 30mg tab ORAL SCH (10:45)
--- NOTE | 2018-07-09 11:16 | Pulmonology Progress Note ---
Assessment/Plan Problems: (1) Sepsis (2) ATN (acute tubular necrosis) (3) Hydronephrosis (4) Cardiomyopathy (5) CAD (coronary artery disease) (6) Morbid obesity (7) HTN (hypertension) Assessment/Plan IV fluids scheduled for surgery for urethral stent continue IV abx check electrolytes dvt prophylaxis symptomatic treatment Subjective ROS Limited/Unobtainable: No Constitutional: Reports: no symptoms HEENT: Repors: no symptoms Allergies: Coded Allergies: CODEINE (Verified Adverse Reaction, Intermediate, 03/19/13) Objective Last 24 Hour Vital Signs Date Time Temp Pulse Resp B/P (MAP) Pulse Ox O2 Delivery O2 Flow Rate FiO2 07/09/18 08:00 98.3 116 20 144/86 (105) 95 07/09/18 06:50 114 166/102 07/09/18 04:00 97.9 109 18 144/99 (114) 98 07/09/18 03:00 107 07/09/18 00:48 110 07/09/18 00:00 97.4 88 18 134/72 (92) 97 07/08/18 21:00 Room Air 07/08/18 20:00 97.3 107 19 130/77 (94) 97 07/08/18 20:00 102 18 Room Air 21 07/08/18 19:04 106 07/08/18 17:21 Room Air 07/08/18 16:00 97 07/08/18 16:00 97.9 100 18 101/63 (76) 100 07/08/18 12:00 97.7 93 18 124/65 (84) 100 07/08/18 12:00 100 07/08/18 11:20 97 18 Room Air 21 Intake and Output 07/08/18 07/09/18 18:59 06:59 Intake Total 3193 ml 1430 ml Output Total 900 ml Balance 3193 ml 530 ml Intake Oral 720 ml IV Total 2473 ml 1430 ml Output Urine Total 900 ml # Voids 3 # Bowel Movements 4 General Appearance: WD/WN, no acute distress HEENT: normocephalic, atraumatic Respiratory/Chest: chest wall non-tender, lungs clear Breasts: no masses Cardiovascular: normal peripheral pulses Abdomen: normal bowel sounds, soft, non tender Genitourinary: normal external genitalia Extremities: no cyanosis Neurologic/Psychiatric: counselor manager II-XII grossly normal Lymphatic: no neck adenopathy Microbiology Date/Time Source Procedure Growth Status 07/07/18 17:00 Blood Blood Culture - Preliminary Gram Negative Michael Resulted 07/07/18 16:50 Blood Blood Culture - Preliminary Gram Negative Michael Resulted 07/08/18 09:52 Urine,Clean Catch Urine Culture - Preliminary NO GROWTH Resulted 07/07/18 18:08 Urine,Clean Catch Urine Culture - Preliminary Gram Negative Michael Resulted Laboratory Tests 07/08/18 15:49: Stool Occult Blood Negative 07/09/18 05:26: White Blood Count 23.8*H, Red Blood Count 3.51L, Hemoglobin 9.3L, Hematocrit 27.8L, Mean Corpuscular Volume 79L, Mean Corpuscular Hemoglobin 26.3L, Mean Corpuscular Hemoglobin Concent 33.3, Red Cell Distribution Width 14.0, Platelet Count 228, Mean Platelet Volume 10.6H, Neutrophils (%) (Auto) , Lymphocytes (%) (Auto) , Monocytes (%) (Auto) , Eosinophils (%) (Auto) , Basophils (%) (Auto) , Neutrophils % (Manual) [Pending], Lymphocytes % (Manual) [Pending], Platelet Estimate [Pending], Platelet Morphology [Pending], Erythrocyte Sedimentation Rate 110H, Reticulocyte Count [Pending], Prothrombin Time 11.7H, Prothromb Time International Ratio 1.1, Activated Partial Thromboplast Time 30, Sodium Level 137, Potassium Level 5.0, Chloride Level 106, Carbon Dioxide Level 21, Anion Gap 10, Blood Urea Nitrogen 28H, Creatinine 1.8H, Estimat Glomerular Filtration Rate 33.7, Glucose Level 137H, Hemoglobin A1c 6.4H, Lactic Acid Level 0.60, Uric Acid 6.3, Calcium Level 8.2L, Phosphorus Level 3.1, Magnesium Level 1.8, Iron Level 17L, Total Iron Binding Capacity 156L, Percent Iron Saturation 11L, Unsaturated Iron Binding 139, Ferritin 334, Total Bilirubin 0.3, Gamma Glutamyl Transpeptidase 32, Aspartate Amino Transf (AST/SGOT) 27, Alanine Aminotransferase (ALT/SGPT) 32, Alkaline Phosphatase 90, Lactate Dehydrogenase 189, Total Creatine Kinase 87, Troponin I 0.130H, C-Reactive Protein, Quantitative 20.1H, Pro-B-Type Natriuretic Peptide 9649H, Total Protein 7.6, Albumin 2.4L, Globulin 5.2, Albumin/Globulin Ratio 0.5L, Triglycerides Level 120 , Cholesterol Level 150, LDL Cholesterol 97, HDL Cholesterol 15L, Cholesterol/ HDL Ratio 10.0H, Lipase 162, Carcinoembryonic Antigen [Pending], Vitamin B12 Level 354, Folate 4.9L, Thyroid Stimulating Hormone (TSH) 0.651, Cortisol AM Sample [Pending] Current Medications Medications (Trade) Dose Ordered Sig/Rufina Route PRN Reason Start Time Stop Time Status Last Admin Dose Admin Acetaminophen (Tylenol) 650 mg Q4H PRN ORAL fever 07/07/18 20:45 08/06/18 20:44 Acetaminophen/ Hydrocodone Bitart ([place] 5/325) 1 tab Q6H PRN ORAL PAIN 4-10 07/09/18 09:00 07/15/18 12:14 Albuterol/ Ipratropium (Albuterol/ Ipratropium) 3 ml Q4H PRN HHN Shortness of Breath 07/07/18 20:45 07/12/18 20:44 Aspirin (ASA) 325 mg DAILY ORAL 07/09/18 09:00 08/08/18 08:59 07/09/18 08:11 Dextrose (Dextrose 50%) 25 ml Q30M PRN IV Hypoglycemia 07/07/18 20:45 08/06/18 20:44 Dextrose (Dextrose 50%) 50 ml Q30M PRN IV Hypoglycemia 07/07/18 20:45 08/06/18 20:44 Diazepam (Valium) 2.5 mg BID PRN ORAL For Anxiety 07/08/18 15:45 07/15/18 15:44 07/08/18 15:53 Docusate Sodium (Colace) 100 mg THREE TIMES A DAY ORAL 07/08/18 13:00 08/07/18 12:59 Folic Acid (Folate) 3 mg DAILY ORAL 07/09/18 10:45 08/08/18 10:44 Heparin Sodium (Porcine) (Heparin 5000 units/ml) 5,000 units EVERY 12 HOURS SUBQ 07/07/18 21:00 08/06/18 20:59 07/09/18 08:12 Iron Sucrose 200 mg/Sodium Chloride 120 ml @ 240 mls/hr ONCE ONCE IV 07/09/18 12:00 07/09/18 12:29 Isosorbide Mononitrate (Imdur) 30 mg DAILY ORAL 07/10/18 09:00 08/09/18 08:59 Isosorbide Mononitrate (Imdur) 30 mg ONCE ORAL 07/09/18 10:45 07/09/18 12:00 Meropenem 500 mg/ Sodium Chloride 55 ml @ 110 mls/hr Q12HR@0200,1400 IVPB 07/08/18 14:00 07/13/18 13:59 07/09/18 01:55 Metoprolol Tartrate (Lopressor) 50 mg Q12HR ORAL 07/09/18 10:45 08/08/18 10:44 Morphine Sulfate (Morphine Sulfate) 2 mg Q4H PRN IVP Severe Breakthru Pain (>7) 07/09/18 09:00 07/14/18 20:44 Nitroglycerin (Ntg) 0.4 mg Q5M PRN SL Prn Chest Pain 07/07/18 20:45 08/06/18 20:44 Ondansetron HCl (Zofran) 4 mg Q6H PRN IVP Nausea & Vomiting 07/07/18 20:45 08/06/18 20:44 Pantoprazole (Protonix) 40 mg EVERY 12 HOURS ORAL 07/08/18 21:00 08/07/18 20:59 07/09/18 08:11 Polyethylene Glycol (Miralax) 17 gm DAILYPRN PRN ORAL Constipation 07/07/18 20:45 08/06/18 20:44 Temazepam (Restoril) 15 mg HSPRN PRN ORAL Insomnia 07/07/18 20:45 07/14/18 20:44 Reyes Bangura MD July 09, 2018 11:16
[2018-07-09] MEDS: Metoprolol Tartrate 50mg tab ORAL SCH ×2 (11:40→20:32)
[2018-07-09] MEDS ORDERED: Iron Sucrose 200 MG in NS 110 ML IV ONE (12:00)
--- NOTE | 2018-07-09 13:00 | NUR ---
NURSE NOTES: Pt to have procedure with Dr. Narvaez today. Consent signed and in the chart. Pt complaining of hills discomfort. Spoke with patient about her having a 24 hour urine collection that will start in the morning. Patient is okay with having hills inserted until 24 hour urine collection is complete.
[2018-07-09] MEDS ORDERED: NS 500ML ONE (13:31)
[2018-07-09] MEDS ORDERED: Tubing IV Secondary IV ONE (13:31)
[2018-07-09] MEDS ORDERED: NS 275ml ONE (13:31)
--- NOTE | 2018-07-09 13:58 | Cardiology Report ---
APPROVED REPORT EXAM: Two-dimensional and M-mode echocardiogram with Doppler and color Doppler. INDICATION Congestive Heart Failure M-Mode DIMENSIONS IVSd0.9 (0.7-1.1cm)Left Atrium (MM)4.5 (1.6-4.0cm) LVDd7.4 (3.5-5.6cm)Aortic Root2.8 (2.0-3.7cm) PWd1.1 (0.7-1.1cm)Aortic Cusp Exc.2.0 (1.5-2.0cm) IVSs1.7 cm LVDs6.1 (2.5-4.0cm) PWs1.7 cm Mild left ventricular enlargement . Global left ventricular hypokineis . Left ventricular ejection fraction estimated to be 20-25%. No evidence of left ventricular hypertrophy . Moderate left atrial enlargement. Right cardiac chamber sizes are within upper limits of normal . No evidence of pericardial effusion. Aortic valve calcification with normal cusp excursion . Mildly thickened mitral valve leaflets with normal excursion. Mild mitral annulus and aortic root calcification. Pulmonic valve not well visualized. IVC at size 1.4 cm with physiologic collapse . A color flow and spectral Doppler study was performed and revealed: No aortic insufficiency . Moderate mitral regurgitation. Mild to moderate tricuspid regurgitation. Tricuspid systolic velocities suggests peak right ventricular systolic pressure of 38 mmHg,consistent with mild pulmonary hypertension . Mild pulmonic regurgitation present .
--- NOTE | 2018-07-09 14:05 | Pre-Procedure Note/Attestation ---
Pre-Procedure Note/Attestation Complete Prior to Procedure Planned Procedure: left Procedure Narrative: RIRS ESWL left stent placement Indications for Procedure Pre-Operative Diagnosis: left ureteral stone Attestation I attest that I discussed the nature of the procedure; its benefits; risks and complications; and alternatives (and the risks and benefits of such alternatives ), prior to the procedure, with the patient (or the patient's legal employment representative). I attest that, if there was a reasonable possibility of needing a blood transfusion, the patient (or the patient's legal employment representative) was given the [facility] standardized written summary, pursuant to the [employer] Blood Safety Act ([place] Health and Safety Code # 1645, as amended). I attest that I re-evaluated the patient just prior to the surgery and that there has been no change in the patient's H&P, except as documented below: Ferdinand Narvaez MD July 09, 2018 14:05
--- NOTE | 2018-07-09 14:20 | NUR ---
NURSE NOTES: Patient off the unit for procedure.
[2018-07-09] MEDS ORDERED: Zemuron 50mg/5ml Inj IV ONE (14:37)
[2018-07-09] MEDS ORDERED: Succinylcholine 20mg/ml 10ml vial ONE (14:37)
[2018-07-09] MEDS ORDERED: cefOXitin 1gm Inj ONE (14:37)
[2018-07-09] MEDS ORDERED: NS Irrig 2000ml IRRIG ONE (14:40)
[2018-07-09] MEDS ORDERED: Sterile Water Irrig 1000ml IRRIG ONE (14:40)
[2018-07-09] MEDS ORDERED: NS Irrig 1000ml ONE (14:40)
[2018-07-09] MEDS ORDERED: LR 1000ml ONE (14:40)
[2018-07-09] MEDS ORDERED: Lidocaine 1% MPF 10mg/ml 5ml ONE (14:51)
[2018-07-09] MEDS ORDERED: Propofol 200mg/20ml IV ONE (14:51)
[2018-07-09] MEDS ORDERED: Midazolam 2mg/2ml Inj ONE (14:53)
[2018-07-09] MEDS ORDERED: LR 1000ml 1,000 ML IVLG SCH (15:17)
[2018-07-09] MEDS ORDERED: Labetalol 5mg/ml 20ml vial IV PRN (15:30)
[2018-07-09] MEDS ORDERED: HYDROcodone/Acetamin 7.5/325 tab ORAL PRN (15:30)
[2018-07-09] MEDS ORDERED: oxyCODONE HCL/Acetaminophen 5/325mg ORAL PRN (15:30)
[2018-07-09] MEDS ORDERED: Hydromorphone 0.5mg/0.5ml inj IVP PRN (15:30)
[2018-07-09] MEDS: D5 1/2NS w/KCl 20mEq 1,000 ML IV SCH ×2 (15:30→18:48)
[2018-07-09] MEDS ORDERED: DiphenhydrAMINE 50mg/ml Inj IVP PRN (15:30)
[2018-07-09] MEDS ORDERED: Meperidine 50mg/ml Inj(FOR RIGORS ONLY) IVP PRN (15:30)
[2018-07-09] MEDS ORDERED: LORazepam Inj 2mg/ml 1ml IV PRN (15:30)
[2018-07-09] MEDS ORDERED: Midazolam 2mg/2ml Inj IVP PRN (15:30)
[2018-07-09] MEDS ORDERED: Metoclopramide 10mg/2ml Inj IVP PRN (15:30)
[2018-07-09] MEDS ORDERED: Atropine Sulfate 0.4mg/ml inj IVP PRN (15:30)
--- NOTE | 2018-07-09 15:30 | Brief Operative Note ---
Immediate Post Operative Note Operative Note Pre-op Diagnosis: left ureteral stone Procedure: RIRS ESWL Left Post-op Diagnosis: stone Post-op Diagnosis: same as pre-op Surgeon: Sridhar Narvaez Anesthesia: general Specimen: none Complications: none Condition: stable Fluids: 500 Estimated Blood Loss: minimal Implant(s) used?: No Ferdinand Narvaez MD July 09, 2018 15:30
--- NOTE | 2018-07-09 15:35 | Anethesia Preoperative Eval ---
Anesthesia Pre-op PMH/ROS General Date of Evaluation: July 09, 2018 Time of Evaluation: 14:41 Anesthesiologist: Hernesto ASA Score: ASA 4 Mallampati Score Class I : Soft palate, uvula, fauces, pillars visible Class II: Soft palate, uvula, fauces visible Class III: Soft palate, base of uvula visible Class IV: Only hard plate visible Mallampati Classification: Class III Surgeon: Solange Diagnosis: ATN Surgical Procedure: Cystoscopy, L Ureteral Stent, ESWL Family History: no anesthesia problems Allergies: Coded Allergies: CODEINE (Verified Adverse Reaction, Intermediate, 03/19/13) Medications: see eMAR Patient NPO?: Yes NPO Date: July 09, 2018 NPO Time: 0700 Past Medical History Cardiovascular: Reports: HTN, CAD - Angina Gastrointestinal/Genitourinary: Reports: other - ATN Neurologic/Psychiatric: Reports: CVA, depression/anxiety Endocrine: Reports: other - Hyperthyroid Hematology/Immune: Reports: anemia Other: obesity - Morbid BMI 53 PSxH Narrative: R Ankle, Both Hips SX Anesthesia Pre-op Phys. Exam Physician Exam Last Vital Signs Date Time Temp Pulse Resp B/P (MAP) Pulse Ox O2 Delivery O2 Flow Rate FiO2 07/09/18 12:00 98.1 109 18 121/73 (89) 96 07/09/18 09:00 Room Air 07/08/18 20:00 21 Constitutional: NAD Neurologic: CN 2-12 intact Cardiovascular: RRR Respiratory: CTA Gastrointestinal: S/NT/ND Airway Exam Mallampati Score: Class III MO: limited ROM: limited Teeth: missing Dentures: upper, lower Anesthesia Pre-op A/P Labs Hematology Test 07/09/18 05:26 White Blood Count 23.8 K/UL (4.8-10.8) *H Red Blood Count 3.51 M/UL (4.20-5.40) L Hemoglobin 9.3 G/DL (12.0-16.0) L Hematocrit 27.8 % (37.0-47.0) L Mean Corpuscular Volume 79 FL (80-99) L Mean Corpuscular Hemoglobin 26.3 PG (27.0-31.0) L Mean Corpuscular Hemoglobin Concent 33.3 G/DL (32.0-36.0) Red Cell Distribution Width 14.0 % (11.6-14.8) Platelet Count 228 K/UL (150-450) Mean Platelet Volume 10.6 FL (6.5-10.1) H Neutrophils (%) (Auto) % (45.0-75.0) Lymphocytes (%) (Auto) % (20.0-45.0) Monocytes (%) (Auto) % (1.0-10.0) Eosinophils (%) (Auto) % (0.0-3.0) Basophils (%) (Auto) % (0.0-2.0) Differential Total Cells Counted 100 Neutrophils % (Manual) 90 % (45-75) H Lymphocytes % (Manual) 4 % (20-45) L Monocytes % (Manual) 2 % (1-10) Eosinophils % (Manual) 0 % (0-3) Basophils % (Manual) 1 % (0-2) Metamyelocytes % 1 % (0-0) H Band Neutrophils 2 % (0-8) Platelet Estimate Adequate Platelet Morphology Normal Hypochromasia 1+ Microcytosis 1+ Erythrocyte Sedimentation Rate 110 MM/HR (0-30) H Reticulocyte Count 0.9 % (0.5-2.0) Coagulation Test 07/09/18 05:26 Prothrombin Time 11.7 SEC (9.30-11.50) H Prothromb Time International Ratio 1.1 (0.9-1.1) Activated Partial Thromboplast Time 30 SEC (23-33) Chemistry Test 07/09/18 05:26 Sodium Level 137 MMOL/L (136-145) Potassium Level 5.0 MMOL/L (3.5-5.1) Chloride Level 106 MMOL/L (98-107) Carbon Dioxide Level 21 MMOL/L (21-32) Anion Gap 10 mmol/L (5-15) Blood Urea Nitrogen 28 mg/dL (7-18) H Creatinine 1.8 MG/DL (0.55-1.30) H Estimat Glomerular Filtration Rate 33.7 mL/min (>60) Glucose Level 137 MG/DL (74-106) H Hemoglobin A1c 6.4 % (4.3-6.0) H Lactic Acid Level 0.60 mmol/L (0.4-2.0) Uric Acid 6.3 MG/DL (2.6-7.2) Calcium Level 8.2 MG/DL (8.5-10.1) L Phosphorus Level 3.1 MG/DL (2.5-4.9) Magnesium Level 1.8 MG/DL (1.8-2.4) Iron Level 17 ug/dL (50-175) L Total Iron Binding Capacity 156 ug/dL (250-450) L Percent Iron Saturation 11 % (15-50) L Unsaturated Iron Binding 139 ug/dL (112-346) Ferritin 334 NG/ML (8-388) Total Bilirubin 0.3 MG/DL (0.2-1.0) Gamma Glutamyl Transpeptidase 32 U/L (5-85) Aspartate Amino Transf (AST/SGOT) 27 U/L (15-37) Alanine Aminotransferase (ALT/SGPT) 32 U/L (12-78) Alkaline Phosphatase 90 U/L (46-116) Lactate Dehydrogenase 189 U/L (81-234) Total Creatine Kinase 87 U/L (26-308) Troponin I 0.130 ng/mL (0.000-0.056) C-Reactive Protein, Quantitative 20.1 mg/dL (0.00-0.90) H Pro-B-Type Natriuretic Peptide 9649 pg/mL (0-125) H Total Protein 7.6 G/DL (6.4-8.2) Albumin 2.4 G/DL (3.4-5.0) L Globulin 5.2 g/dL Albumin/Globulin Ratio 0.5 (1.0-2.7) L Triglycerides Level 120 MG/DL (30-150) Cholesterol Level 150 MG/DL (< 200) LDL Cholesterol 97 mg/dL (<100) HDL Cholesterol 15 MG/DL (40-60) L Cholesterol/HDL Ratio 10.0 (3.3-4.4) H Lipase 162 U/L (73-393) Carcinoembryonic Antigen Pending Vitamin B12 Level 354 PG/ML (193-986) Folate 4.9 NG/ML (8.6-58.9) L Thyroid Stimulating Hormone (TSH) 0.651 uiU/mL (0.358-3.740) Cortisol AM Sample 15.5 UG/DL Risk Assessment & Plan Assessment: ASA 4 Plan: GA, SED Status Change Before Surgery: No Pre-Antibiotics Drug: On Floor Tony Eric MD July 09, 2018 15:35
--- NOTE | 2018-07-09 15:36 | Immediate Post-Op Evaluation ---
Immediate Post-Op Evalulation Immediate Post-Op Evalulation Procedure: Cystoscopy Date of Evaluation: July 09, 2018 Time of Evaluation: 16:32 IV Fluids: 400 LR Blood Products: 0 Estimated Blood Loss: 10 Urinary Output: 0 Blood Pressure Systolic: 142 Blood Pressure Diastolic: 90 Pulse Rate: 105 Respiratory Rate: 16 O2 Sat by Pulse Oximetry: 96 Temperature (Fahrenheit): 97.9 Pain Score (1-10): 2 Nausea: No Vomiting: No Complications 0 Patient Status: awake, reacts, patent, none Hydration Status: adequate Drug: On Floor Tony Eric MD July 09, 2018 15:36
[2018-07-09] MEDS ORDERED: Iothalamate Meglumine 60% 30ML INJ ONE (16:26)
[2018-07-09] MEDS: fentaNYL 100 mcg/2 mL IV PRN ×2 (17:17→18:16)
--- NOTE | 2018-07-09 17:44 | Internal Med Progress Note ---
Subjective Date of Service: July 09, 2018 Physician Name CatieChencho Attending Physician Georges Harper MD Current Medications Medications (Trade) Dose Ordered Sig/Rufina Route PRN Reason Start Time Stop Time Status Last Admin Dose Admin Acetaminophen (Tylenol) 650 mg Q4H PRN ORAL fever 07/07/18 20:45 08/06/18 20:44 Acetaminophen/ Hydrocodone Bitart ([place] 5/325) 1 tab Q1H PRN ORAL Mild Pain (Pain Scale 1-3) 07/09/18 15:30 UNV Acetaminophen/ Hydrocodone Bitart ([place] 5/325) 1 tab Q6H PRN ORAL PAIN 4-10 07/09/18 09:00 07/15/18 12:14 Acetaminophen/ Hydrocodone Bitart ([place] 7.5/325) 1 tab Q1H PRN ORAL Moderate Pain (Pain Scale 4-6) 07/09/18 15:30 UNV Al Hydroxide/Mg Hydroxide (Mylanta) 15 ml Q1H PRN ORAL gi upset 07/09/18 15:30 07/09/18 20:00 Albuterol/ Ipratropium (Albuterol/ Ipratropium) 3 ml Q4H PRN HHN Shortness of Breath 07/07/18 20:45 07/12/18 20:44 Aspirin (ASA) 325 mg DAILY ORAL 07/09/18 09:00 08/08/18 08:59 07/09/18 08:11 Atropine Sulfate (Atropine 0.4mg/ ml) 0.5 mg Q5M PRN IVP HR<40 07/09/18 15:30 07/09/18 20:00 Dextrose (Dextrose 50%) 25 ml Q30M PRN IV Hypoglycemia 07/07/18 20:45 08/06/18 20:44 Dextrose (Dextrose 50%) 50 ml Q30M PRN IV Hypoglycemia 07/07/18 20:45 08/06/18 20:44 Dextrose/ Electrolytes 1,000 ml @ 100 mls/hr Q10H IV 07/09/18 15:30 08/08/18 15:29 UNV Diazepam (Valium) 2.5 mg BIDPRN PRN ORAL For Anxiety 07/09/18 14:30 07/15/18 15:44 Diphenhydramine HCl (Benadryl) 25 mg Q15M PRN IVP Itching 07/09/18 15:30 07/09/18 20:00 Docusate Sodium (Colace) 100 mg THREE TIMES A DAY ORAL 07/08/18 13:00 08/07/18 12:59 Fentanyl Citrate (Sublimaze 100 mcg/2 mL) 25 mcg Q10M PRN IV Moderate Pain (Pain Scale 4-6) 07/09/18 15:30 07/09/18 19:00 07/09/18 17:17 Folic Acid (Folate) 3 mg DAILY ORAL 07/09/18 10:45 08/08/18 10:44 07/09/18 11:54 Heparin Sodium (Porcine) (Heparin 5000 units/ml) 5,000 units EVERY 12 HOURS SUBQ 07/07/18 21:00 08/06/18 20:59 07/09/18 08:12 Hydralazine HCl (Apresoline) 5 mg Q30M PRN IV SBP>160 / DBP>90 07/09/18 15:30 07/09/18 20:00 Hydromorphone HCl (Dilaudid) 0.5 mg Q15M PRN IVP Severe Pain (Pain Scale 7-10) 07/09/18 15:30 UNV Isosorbide Mononitrate (Imdur) 30 mg DAILY ORAL 07/10/18 09:00 08/09/18 08:59 Labetalol HCl (Normodyne) 5 mg Q10M PRN IV SBP>160 / DBP>90 07/09/18 15:30 07/09/18 20:00 Lorazepam (Ativan 2mg/ml 1ml) 1 mg Q15M PRN IV For Anxiety 07/09/18 15:30 UNV Meperidine HCl (Demerol) 25 mg Q5M PRN IVP Shivering.May repeat x 1 07/09/18 15:30 07/09/18 20:00 Meropenem 500 mg/ Sodium Chloride 55 ml @ 110 mls/hr Q12HR@0200,1400 IVPB 07/08/18 14:00 07/13/18 13:59 07/09/18 01:55 Metoclopramide HCl (Reglan) 10 mg Q1H PRN IVP Nausea & Vomiting 07/09/18 15:30 07/09/18 19:00 Metoprolol Tartrate (Lopressor) 50 mg Q12HR ORAL 07/09/18 10:45 08/08/18 10:44 07/09/18 11:40 Midazolam HCl (Versed 2mg/2ml vial) 1 mg Q15M PRN IVP For Anxiety 07/09/18 15:30 UNV Morphine Sulfate (Morphine Sulfate) 2 mg Q4H PRN IVP Severe Breakthru Pain (>7) 07/09/18 09:00 07/14/18 20:44 Nitroglycerin (Ntg) 0.4 mg Q5M PRN SL Prn Chest Pain 07/07/18 20:45 08/06/18 20:44 Ondansetron HCl (Zofran) 4 mg Q1H PRN IVP Nausea & Vomiting 07/09/18 15:30 07/09/18 19:00 Ondansetron HCl (Zofran) 4 mg Q6H PRN IVP Nausea & Vomiting 07/07/18 20:45 08/06/18 20:44 Oxycodone/ Acetaminophen (Percocet 5-325) 1 tab Q1H PRN ORAL Severe Pain (Pain Scale 7-10) 07/09/18 15:30 UNV Pantoprazole (Protonix) 40 mg EVERY 12 HOURS ORAL 07/08/18 21:00 08/07/18 20:59 07/09/18 08:11 Polyethylene Glycol (Miralax) 17 gm DAILYPRN PRN ORAL Constipation 07/07/18 20:45 08/06/18 20:44 Temazepam (Restoril) 15 mg HSPRN PRN ORAL Insomnia 07/07/18 20:45 07/14/18 20:44 Allergies: Coded Allergies: CODEINE (Verified Adverse Reaction, Intermediate, 03/19/13) ROS Limited/Unobtainable: No Constitutional: Reports: chills, fever HEENT: Reports: no symptoms Cardiovascular: Reports: no symptoms Respiratory: Reports: no symptoms Gastrointestinal/Abdominal: Reports: no symptoms Genitourinary: Reports: no symptoms Neurologic/Psychiatric: Reports: no symptoms Subjective 68 YO F admitted with gen weakness. Now UTI and sepsis. Cover for Int [place]-Dr Harper Objective Last Vital Signs Date Time Temp Pulse Resp B/P (MAP) Pulse Ox O2 Delivery O2 Flow Rate FiO2 07/09/18 17:15 97.3 90 18 141/75 96 Nasal Cannula 3 90 07/08/18 20:00 21 Laboratory Tests Test 07/09/18 05:26 White Blood Count 23.8 K/UL (4.8-10.8) *H Red Blood Count 3.51 M/UL (4.20-5.40) L Hemoglobin 9.3 G/DL (12.0-16.0) L Hematocrit 27.8 % (37.0-47.0) L Mean Corpuscular Volume 79 FL (80-99) L Mean Corpuscular Hemoglobin 26.3 PG (27.0-31.0) L Mean Corpuscular Hemoglobin Concent 33.3 G/DL (32.0-36.0) Red Cell Distribution Width 14.0 % (11.6-14.8) Platelet Count 228 K/UL (150-450) Mean Platelet Volume 10.6 FL (6.5-10.1) H Neutrophils (%) (Auto) % (45.0-75.0) Lymphocytes (%) (Auto) % (20.0-45.0) Monocytes (%) (Auto) % (1.0-10.0) Eosinophils (%) (Auto) % (0.0-3.0) Basophils (%) (Auto) % (0.0-2.0) Differential Total Cells Counted 100 Neutrophils % (Manual) 90 % (45-75) H Lymphocytes % (Manual) 4 % (20-45) L Monocytes % (Manual) 2 % (1-10) Eosinophils % (Manual) 0 % (0-3) Basophils % (Manual) 1 % (0-2) Metamyelocytes % 1 % (0-0) H Band Neutrophils 2 % (0-8) Platelet Estimate Adequate Platelet Morphology Normal Hypochromasia 1+ Microcytosis 1+ Erythrocyte Sedimentation Rate 110 MM/HR (0-30) H Reticulocyte Count 0.9 % (0.5-2.0) Prothrombin Time 11.7 SEC (9.30-11.50) H Prothromb Time International Ratio 1.1 (0.9-1.1) Activated Partial Thromboplast Time 30 SEC (23-33) Sodium Level 137 MMOL/L (136-145) Potassium Level 5.0 MMOL/L (3.5-5.1) Chloride Level 106 MMOL/L (98-107) Carbon Dioxide Level 21 MMOL/L (21-32) Anion Gap 10 mmol/L (5-15) Blood Urea Nitrogen 28 mg/dL (7-18) H Creatinine 1.8 MG/DL (0.55-1.30) H Estimat Glomerular Filtration Rate 33.7 mL/min (>60) Glucose Level 137 MG/DL (74-106) H Hemoglobin A1c 6.4 % (4.3-6.0) H Lactic Acid Level 0.60 mmol/L (0.4-2.0) Uric Acid 6.3 MG/DL (2.6-7.2) Calcium Level 8.2 MG/DL (8.5-10.1) L Phosphorus Level 3.1 MG/DL (2.5-4.9) Magnesium Level 1.8 MG/DL (1.8-2.4) Iron Level 17 ug/dL (50-175) L Total Iron Binding Capacity 156 ug/dL (250-450) L Percent Iron Saturation 11 % (15-50) L Unsaturated Iron Binding 139 ug/dL (112-346) Ferritin 334 NG/ML (8-388) Total Bilirubin 0.3 MG/DL (0.2-1.0) Gamma Glutamyl Transpeptidase 32 U/L (5-85) Aspartate Amino Transf (AST/SGOT) 27 U/L (15-37) Alanine Aminotransferase (ALT/SGPT) 32 U/L (12-78) Alkaline Phosphatase 90 U/L (46-116) Lactate Dehydrogenase 189 U/L (81-234) Total Creatine Kinase 87 U/L (26-308) Troponin I 0.130 ng/mL (0.000-0.056) C-Reactive Protein, Quantitative 20.1 mg/dL (0.00-0.90) H Pro-B-Type Natriuretic Peptide 9649 pg/mL (0-125) H Total Protein 7.6 G/DL (6.4-8.2) Albumin 2.4 G/DL (3.4-5.0) L Globulin 5.2 g/dL Albumin/Globulin Ratio 0.5 (1.0-2.7) L Triglycerides Level 120 MG/DL (30-150) Cholesterol Level 150 MG/DL (< 200) LDL Cholesterol 97 mg/dL (<100) HDL Cholesterol 15 MG/DL (40-60) L Cholesterol/HDL Ratio 10.0 (3.3-4.4) H Lipase 162 U/L (73-393) Carcinoembryonic Antigen Pending Vitamin B12 Level 354 PG/ML (193-986) Folate 4.9 NG/ML (8.6-58.9) L Thyroid Stimulating Hormone (TSH) 0.651 uiU/mL (0.358-3.740) Cortisol AM Sample 15.5 UG/DL Microbiology Date/Time Source Procedure Growth Status 07/07/18 17:00 Blood Blood Culture - Preliminary Gram Negative Michael Resulted 07/07/18 16:50 Blood Blood Culture - Preliminary Gram Negative Michael Resulted 07/08/18 09:52 Urine,Clean Catch Urine Culture - Preliminary NO GROWTH Resulted 07/07/18 18:08 Urine,Clean Catch Urine Culture - Preliminary Gram Negative Michael Resulted Intake and Output 07/08/18 07/09/18 19:00 07:00 Intake Total 3293 ml 1330 ml Output Total 900 ml Balance 3293 ml 430 ml Intake Oral 720 ml IV Total 2573 ml 1330 ml Output Urine Total 900 ml # Voids 3 # Bowel Movements 4 Objective HYSICAL EXAMINATION: GENERAL: The patient is a well-developed and well-nourished slightly obese female, in no apparent distress. HEENT: Eyes, pupils are equal and responsive to light and accommodation. Extraocular movements are intact. NECK: Supple without lymphadenopathy. CHEST: Lungs are clear to auscultation bilaterally without wheezes or rales. CARDIOVASCULAR: Regular rhythm and rate. S1 and S2 are normal without murmurs, rubs, or gallops. ABDOMEN: Soft, nontender, and nondistended. Positive bowel sounds. No evidence of hepatosplenomegaly. Currently, no rebound or guarding noted. EXTREMITIES: Negative for clubbing, cyanosis, or edema. RECTAL/GENITAL: Not performed. NEUROLOGIC: Cranial nerves II through XII are grossly intact without focal deficits. Motor strength is 5/5 bilaterally. Deep tendon reflexes are 2+ plantar. Assessment/Plan Assessment/Plan ASSESSMENT: This is a 68-year-old female. 1. Generalized weakness. 2. Urinary tract infection. 3. Probable sepsis. 4. Leukocytosis. 5. Left hydronephrosis. 6. Left UPJ stone. 7. Hypertension. 8. Congestive heart failure. 9. Cerebrovascular disease. 10. Hypercholesterolemia. TREATMENT: 1. Urinary tract infection=gram neg michael. Await ID and sensitivity. The patient has been started on meropenem per ID. An Infectious Disease consultation has been obtained with Dr. Tena. Await urine culture results. 2. Sepsis=Gram neg michael. Await ID and sensitivity. Continue meropenem per ID 3. Leukocytosis. 4. Generalized weakness. 5. Left hydronephrosis/left UPJ stone. An Urology consultation has been obtained with Dr. Savage. 6. Hypertension. The patient is currently hypotensive. Hold antihypertensive medications as above. 7. Congestive heart failure. 8. Cerebrovascular disease. 9. Hypercholesterolemia. Chencho Haddad MD July 09, 2018 17:44
--- NOTE | 2018-07-09 18:50 | Infectious Diseases Prog Note ---
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 The obstruction is chronic. 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 Recommend reevaluation with IV contrast. Multiple calyceal staghorn type calculi within the right kidney with presence of air in the collecting system. Consider infection. Atherosclerotic vascular disease. Cardiomegaly Diverticulosis of the colon Nondiagnostic evaluation of the pelvis due to bilateral total hip prosthetics. Degenerative changes of the spine -CXR: Cardiomegaly. No acute disease Afebrile Leukocytosis; improving COURTNEY; improving CHF HTN Plan: -Continue empiric Meropenem #2 pending urine culture results -07/08 SP IV Vancomycin #2, Cefepime #2 -07/07 SP Zosyn x1 -f.u cx -Monitor CBC/CMP, temperatures -Uro eval- surgical intervention if necessary if patient truly has xanthogranulomatous pyelonephritis -aspiration precautions Thank you for this consultation. Will continue to follow along with you. Subjective Allergies: Coded Allergies: CODEINE (Verified Adverse Reaction, Intermediate, 03/19/13) Subjective afebrile s/p urethral stent placement today repeat bcx p wbc improving Objective Vital Signs Last 24 Hour Vital Signs Date Time Temp Pulse Resp B/P (MAP) Pulse Ox O2 Delivery O2 Flow Rate FiO2 07/09/18 18:03 91 17 137/77 96 Nasal Cannula 3 91 07/09/18 17:45 91 17 137/77 96 Nasal Cannula 3 91 07/09/18 17:15 97.3 90 18 141/75 96 Nasal Cannula 3 90 07/09/18 17:00 91 15 144/85 96 Nasal Cannula 3 91 07/09/18 16:50 92 14 148/84 96 Nasal Cannula 3 92 07/09/18 16:40 99 16 146/89 96 Nasal Cannula 3 99 07/09/18 16:30 94 18 145/87 96 Simple Mask 6 94 07/09/18 16:23 97.9 105 16 142/90 96 Simple Mask 6 105 07/09/18 16:21 105 16 96 07/09/18 12:00 98.1 109 18 121/73 (89) 96 07/09/18 11:40 121 73/107 07/09/18 11:39 121/73 07/09/18 09:00 Room Air 07/09/18 08:00 98.3 116 20 144/86 (105) 95 07/09/18 08:00 115 07/09/18 06:50 114 166/102 07/09/18 04:00 97.9 109 18 144/99 (114) 98 07/09/18 03:00 107 07/09/18 00:48 110 07/09/18 00:00 97.4 88 18 134/72 (92) 97 07/08/18 21:00 Room Air 07/08/18 20:00 97.3 107 19 130/77 (94) 97 07/08/18 20:00 102 18 Room Air 21 07/08/18 19:04 106 Height (Feet): 5 Height (Inches): 3.00 Weight (Pounds): 288 Objective General Appearance: other - Somewhat pale Head: normocephalic, atraumatic Eyes: bilateral eye PERRL, bilateral eye EOMI ENT: normal pharynx, no angioedema Neck: supple Respiratory: lungs clear, no retraction Cardiovascular #1: tachycardia Gastrointestinal: non tender, soft Genitourinary: no CVA tenderness Musculoskeletal: normal inspection Neurologic: alert, oriented x3, 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, 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 Skin: no rash, pallor Lymphatic: no adenopathy Microbiology Date/Time Source Procedure Growth Status 07/07/18 17:00 Blood Blood Culture - Preliminary Gram Negative Michael Resulted 07/07/18 16:50 Blood Blood Culture - Preliminary Gram Negative Michael Resulted 07/08/18 09:52 Urine,Clean Catch Urine Culture - Preliminary NO GROWTH Resulted 07/07/18 18:08 Urine,Clean Catch Urine Culture - Preliminary Gram Negative Michael Resulted Laboratory Tests Test 07/09/18 05:26 White Blood Count 23.8 K/UL (4.8-10.8) *H Red Blood Count 3.51 M/UL (4.20-5.40) L Hemoglobin 9.3 G/DL (12.0-16.0) L Hematocrit 27.8 % (37.0-47.0) L Mean Corpuscular Volume 79 FL (80-99) L Mean Corpuscular Hemoglobin 26.3 PG (27.0-31.0) L Mean Corpuscular Hemoglobin Concent 33.3 G/DL (32.0-36.0) Red Cell Distribution Width 14.0 % (11.6-14.8) Platelet Count 228 K/UL (150-450) Mean Platelet Volume 10.6 FL (6.5-10.1) H Neutrophils (%) (Auto) % (45.0-75.0) Lymphocytes (%) (Auto) % (20.0-45.0) Monocytes (%) (Auto) % (1.0-10.0) Eosinophils (%) (Auto) % (0.0-3.0) Basophils (%) (Auto) % (0.0-2.0) Differential Total Cells Counted 100 Neutrophils % (Manual) 90 % (45-75) H Lymphocytes % (Manual) 4 % (20-45) L Monocytes % (Manual) 2 % (1-10) Eosinophils % (Manual) 0 % (0-3) Basophils % (Manual) 1 % (0-2) Metamyelocytes % 1 % (0-0) H Band Neutrophils 2 % (0-8) Platelet Estimate Adequate Platelet Morphology Normal Hypochromasia 1+ Microcytosis 1+ Erythrocyte Sedimentation Rate 110 MM/HR (0-30) H Reticulocyte Count 0.9 % (0.5-2.0) Prothrombin Time 11.7 SEC (9.30-11.50) H Prothromb Time International Ratio 1.1 (0.9-1.1) Activated Partial Thromboplast Time 30 SEC (23-33) Sodium Level 137 MMOL/L (136-145) Potassium Level 5.0 MMOL/L (3.5-5.1) Chloride Level 106 MMOL/L (98-107) Carbon Dioxide Level 21 MMOL/L (21-32) Anion Gap 10 mmol/L (5-15) Blood Urea Nitrogen 28 mg/dL (7-18) H Creatinine 1.8 MG/DL (0.55-1.30) H Estimat Glomerular Filtration Rate 33.7 mL/min (>60) Glucose Level 137 MG/DL (74-106) H Hemoglobin A1c 6.4 % (4.3-6.0) H Lactic Acid Level 0.60 mmol/L (0.4-2.0) Uric Acid 6.3 MG/DL (2.6-7.2) Calcium Level 8.2 MG/DL (8.5-10.1) L Phosphorus Level 3.1 MG/DL (2.5-4.9) Magnesium Level 1.8 MG/DL (1.8-2.4) Iron Level 17 ug/dL (50-175) L Total Iron Binding Capacity 156 ug/dL (250-450) L Percent Iron Saturation 11 % (15-50) L Unsaturated Iron Binding 139 ug/dL (112-346) Ferritin 334 NG/ML (8-388) Total Bilirubin 0.3 MG/DL (0.2-1.0) Gamma Glutamyl Transpeptidase 32 U/L (5-85) Aspartate Amino Transf (AST/SGOT) 27 U/L (15-37) Alanine Aminotransferase (ALT/SGPT) 32 U/L (12-78) Alkaline Phosphatase 90 U/L (46-116) Lactate Dehydrogenase 189 U/L (81-234) Total Creatine Kinase 87 U/L (26-308) Troponin I 0.130 ng/mL (0.000-0.056) C-Reactive Protein, Quantitative 20.1 mg/dL (0.00-0.90) H Pro-B-Type Natriuretic Peptide 9649 pg/mL (0-125) H Total Protein 7.6 G/DL (6.4-8.2) Albumin 2.4 G/DL (3.4-5.0) L Globulin 5.2 g/dL Albumin/Globulin Ratio 0.5 (1.0-2.7) L Triglycerides Level 120 MG/DL (30-150) Cholesterol Level 150 MG/DL (< 200) LDL Cholesterol 97 mg/dL (<100) HDL Cholesterol 15 MG/DL (40-60) L Cholesterol/HDL Ratio 10.0 (3.3-4.4) H Lipase 162 U/L (73-393) Carcinoembryonic Antigen Pending Vitamin B12 Level 354 PG/ML (193-986) Folate 4.9 NG/ML (8.6-58.9) L Thyroid Stimulating Hormone (TSH) 0.651 uiU/mL (0.358-3.740) Cortisol AM Sample 15.5 UG/DL Current Medications Medications (Trade) Dose Ordered Sig/Rufina Route PRN Reason Start Time Stop Time Status Last Admin Dose Admin Acetaminophen (Tylenol) 650 mg Q4H PRN ORAL fever 07/07/18 20:45 08/06/18 20:44 Acetaminophen/ Hydrocodone Bitart ([place] 5/325) 1 tab Q1H PRN ORAL Mild Pain (Pain Scale 1-3) 07/09/18 15:30 UNV Acetaminophen/ Hydrocodone Bitart ([place] 5/325) 1 tab Q6H PRN ORAL PAIN 4-10 07/09/18 09:00 07/15/18 12:14 Acetaminophen/ Hydrocodone Bitart ([place] 7.5/325) 1 tab Q1H PRN ORAL Moderate Pain (Pain Scale 4-6) 07/09/18 15:30 UNV Al Hydroxide/Mg Hydroxide (Mylanta) 15 ml Q1H PRN ORAL gi upset 07/09/18 15:30 07/09/18 20:00 Albuterol/ Ipratropium (Albuterol/ Ipratropium) 3 ml Q4H PRN HHN Shortness of Breath 07/07/18 20:45 07/12/18 20:44 Aspirin (ASA) 325 mg DAILY ORAL 07/09/18 09:00 08/08/18 08:59 07/09/18 08:11 Atropine Sulfate (Atropine 0.4mg/ ml) 0.5 mg Q5M PRN IVP HR<40 07/09/18 15:30 07/09/18 20:00 Dextrose (Dextrose 50%) 25 ml Q30M PRN IV Hypoglycemia 07/07/18 20:45 08/06/18 20:44 Dextrose (Dextrose 50%) 50 ml Q30M PRN IV Hypoglycemia 07/07/18 20:45 08/06/18 20:44 Dextrose/ Electrolytes 1,000 ml @ 100 mls/hr Q10H IV 07/09/18 15:30 08/08/18 15:29 Diazepam (Valium) 2.5 mg BIDPRN PRN ORAL For Anxiety 07/09/18 14:30 07/15/18 15:44 Diphenhydramine HCl (Benadryl) 25 mg Q15M PRN IVP Itching 07/09/18 15:30 07/09/18 20:00 Docusate Sodium (Colace) 100 mg THREE TIMES A DAY ORAL 07/08/18 13:00 08/07/18 12:59 Fentanyl Citrate (Sublimaze 100 mcg/2 mL) 25 mcg Q10M PRN IV Moderate Pain (Pain Scale 4-6) 07/09/18 15:30 07/09/18 19:00 07/09/18 17:17 Folic Acid (Folate) 3 mg DAILY ORAL 07/09/18 10:45 08/08/18 10:44 07/09/18 11:54 Heparin Sodium (Porcine) (Heparin 5000 units/ml) 5,000 units EVERY 12 HOURS SUBQ 07/07/18 21:00 08/06/18 20:59 07/09/18 08:12 Hydralazine HCl (Apresoline) 5 mg Q30M PRN IV SBP>160 / DBP>90 07/09/18 15:30 07/09/18 20:00 Hydromorphone HCl (Dilaudid) 0.5 mg Q15M PRN IVP Severe Pain (Pain Scale 7-10) 07/09/18 15:30 UNV Isosorbide Mononitrate (Imdur) 30 mg DAILY ORAL 07/10/18 09:00 08/09/18 08:59 Labetalol HCl (Normodyne) 5 mg Q10M PRN IV SBP>160 / DBP>90 07/09/18 15:30 07/09/18 20:00 Lorazepam (Ativan 2mg/ml 1ml) 1 mg Q15M PRN IV For Anxiety 07/09/18 15:30 UNV Meperidine HCl (Demerol) 25 mg Q5M PRN IVP Shivering.May repeat x 1 07/09/18 15:30 07/09/18 20:00 Meropenem 500 mg/ Sodium Chloride 55 ml @ 110 mls/hr Q12HR@0200,1400 IVPB 07/08/18 14:00 07/13/18 13:59 07/09/18 01:55 Metoclopramide HCl (Reglan) 10 mg Q1H PRN IVP Nausea & Vomiting 07/09/18 15:30 07/09/18 19:00 Metoprolol Tartrate (Lopressor) 50 mg Q12HR ORAL 07/09/18 10:45 08/08/18 10:44 07/09/18 11:40 Midazolam HCl (Versed 2mg/2ml vial) 1 mg Q15M PRN IVP For Anxiety 07/09/18 15:30 UNV Morphine Sulfate (Morphine Sulfate) 2 mg Q4H PRN IVP Severe Breakthru Pain (>7) 07/09/18 09:00 07/14/18 20:44 Nitroglycerin (Ntg) 0.4 mg Q5M PRN SL Prn Chest Pain 07/07/18 20:45 08/06/18 20:44 Ondansetron HCl (Zofran) 4 mg Q1H PRN IVP Nausea & Vomiting 07/09/18 15:30 07/09/18 19:00 Ondansetron HCl (Zofran) 4 mg Q6H PRN IVP Nausea & Vomiting 07/07/18 20:45 08/06/18 20:44 Oxycodone/ Acetaminophen (Percocet 5-325) 1 tab Q1H PRN ORAL Severe Pain (Pain Scale 7-10) 07/09/18 15:30 UNV Pantoprazole (Protonix) 40 mg EVERY 12 HOURS ORAL 07/08/18 21:00 08/07/18 20:59 07/09/18 08:11 Polyethylene Glycol (Miralax) 17 gm DAILYPRN PRN ORAL Constipation 07/07/18 20:45 08/06/18 20:44 Temazepam (Restoril) 15 mg HSPRN PRN ORAL Insomnia 07/07/18 20:45 07/14/18 20:44 Emilie Tena M.D. July 09, 2018 18:50
--- NOTE | 2018-07-09 19:00 | Consultation ---
DATE OF CONSULTATION: 07/09/2018 CONSULTING PHYSICIAN: Ferdinand Narvaez M.D. REASON FOR CONSULTATION: Left UPJ stone. HISTORY OF PRESENT ILLNESS: She is a 68-year-old female with persistent pain in the left flank, was admitted for lethargy and flu symptoms. She has history of kidney stones, but never had any surgeries. PAST MEDICAL HISTORY: Significant for hypertension, congestive heart failure, CVA, hypercholesterolemia. PHYSICAL EXAMINATION: VITAL SIGNS: She is afebrile. Vital signs stable. NEUROLOGIC: Intact. LUNGS: Clear to auscultation. CARDIOVASCULAR: Regular rate and rhythm. ABDOMEN: Soft, nontender. DIAGNOSTIC AND LABORATORY DATA: CT scan was reviewed. There is 1 cm stone in the UPJ of the left kidney with hydronephrosis and perinephric stranding. Labs were reviewed. ASSESSMENT AND PLAN: The patient needs emergency stent placement and possible lithotripsy, which will be done today. I will communicate this with you. The patient will be scheduled for surgery on 2 o'clock. Ferdinand Narvaez M.D. DR: ALL JOB#: [id number] CC:
--- NOTE | 2018-07-09 19:18 | NUR ---
HAND-OFF: Report given to KEVIN Freeman. Pt is in stable condition at this time; plan of care endorsed.
--- NOTE | 2018-07-09 19:43 | Cardiology Progress Note ---
Assessment/Plan Assessment/Plan cm non ischemic nephrolithiasis bacteremia pyelonephritics obesity hyperlipidemia chronic chf nsvt cri wbc noted iv abx not in acute chf yet keep on chf meds when bp improves did not tolerate bb due to fatigue no vt mg supplement low dose cath at [facility] 2016 non sig cad not on acei dueto elelvated k and cr will use norvasc for now had procedure iv abx Subjective Cardiovascular: Denies: chest pain, lightheadedness, palpitations Respiratory: Denies: shortness of breath Gastrointestinal/Abdominal: Denies: abdominal pain Genitourinary: Denies: burning Objective Last 24 Hour Vital Signs Date Time Temp Pulse Resp B/P (MAP) Pulse Ox O2 Delivery O2 Flow Rate FiO2 07/09/18 18:03 91 17 137/77 96 Nasal Cannula 3 91 07/09/18 17:45 91 17 137/77 96 Nasal Cannula 3 91 07/09/18 17:15 97.3 90 18 141/75 96 Nasal Cannula 3 90 07/09/18 17:00 91 15 144/85 96 Nasal Cannula 3 91 07/09/18 16:50 92 14 148/84 96 Nasal Cannula 3 92 07/09/18 16:40 99 16 146/89 96 Nasal Cannula 3 99 07/09/18 16:30 94 18 145/87 96 Simple Mask 6 94 07/09/18 16:23 97.9 105 16 142/90 96 Simple Mask 6 105 07/09/18 16:21 105 16 96 07/09/18 12:00 98.1 109 18 121/73 (89) 96 07/09/18 11:40 121 73/107 07/09/18 11:39 121/73 07/09/18 09:00 Room Air 07/09/18 08:00 98.3 116 20 144/86 (105) 95 07/09/18 08:00 115 07/09/18 06:50 114 166/102 07/09/18 04:00 97.9 109 18 144/99 (114) 98 07/09/18 03:00 107 07/09/18 00:48 110 07/09/18 00:00 97.4 88 18 134/72 (92) 97 07/08/18 21:00 Room Air 07/08/18 20:00 97.3 107 19 130/77 (94) 97 07/08/18 20:00 102 18 Room Air 21 General Appearance: no apparent distress, alert, obese Cardiovascular: normal rate Respiratory/Chest: lungs clear Abdomen: normal bowel sounds, non tender, soft Extremities: no swelling Intake and Output 07/08/18 07/09/18 19:00 07:00 Intake Total 3293 ml 1330 ml Output Total 900 ml Balance 3293 ml 430 ml Intake Oral 720 ml IV Total 2573 ml 1330 ml Output Urine Total 900 ml # Voids 3 # Bowel Movements 4 Laboratory Tests Test 07/09/18 05:26 White Blood Count 23.8 K/UL (4.8-10.8) *H Red Blood Count 3.51 M/UL (4.20-5.40) L Hemoglobin 9.3 G/DL (12.0-16.0) L Hematocrit 27.8 % (37.0-47.0) L Mean Corpuscular Volume 79 FL (80-99) L Mean Corpuscular Hemoglobin 26.3 PG (27.0-31.0) L Mean Corpuscular Hemoglobin Concent 33.3 G/DL (32.0-36.0) Red Cell Distribution Width 14.0 % (11.6-14.8) Platelet Count 228 K/UL (150-450) Mean Platelet Volume 10.6 FL (6.5-10.1) H Neutrophils (%) (Auto) % (45.0-75.0) Lymphocytes (%) (Auto) % (20.0-45.0) Monocytes (%) (Auto) % (1.0-10.0) Eosinophils (%) (Auto) % (0.0-3.0) Basophils (%) (Auto) % (0.0-2.0) Differential Total Cells Counted 100 Neutrophils % (Manual) 90 % (45-75) H Lymphocytes % (Manual) 4 % (20-45) L Monocytes % (Manual) 2 % (1-10) Eosinophils % (Manual) 0 % (0-3) Basophils % (Manual) 1 % (0-2) Metamyelocytes % 1 % (0-0) H Band Neutrophils 2 % (0-8) Platelet Estimate Adequate Platelet Morphology Normal Hypochromasia 1+ Microcytosis 1+ Erythrocyte Sedimentation Rate 110 MM/HR (0-30) H Reticulocyte Count 0.9 % (0.5-2.0) Prothrombin Time 11.7 SEC (9.30-11.50) H Prothromb Time International Ratio 1.1 (0.9-1.1) Activated Partial Thromboplast Time 30 SEC (23-33) Sodium Level 137 MMOL/L (136-145) Potassium Level 5.0 MMOL/L (3.5-5.1) Chloride Level 106 MMOL/L (98-107) Carbon Dioxide Level 21 MMOL/L (21-32) Anion Gap 10 mmol/L (5-15) Blood Urea Nitrogen 28 mg/dL (7-18) H Creatinine 1.8 MG/DL (0.55-1.30) H Estimat Glomerular Filtration Rate 33.7 mL/min (>60) Glucose Level 137 MG/DL (74-106) H Hemoglobin A1c 6.4 % (4.3-6.0) H Lactic Acid Level 0.60 mmol/L (0.4-2.0) Uric Acid 6.3 MG/DL (2.6-7.2) Calcium Level 8.2 MG/DL (8.5-10.1) L Phosphorus Level 3.1 MG/DL (2.5-4.9) Magnesium Level 1.8 MG/DL (1.8-2.4) Iron Level 17 ug/dL (50-175) L Total Iron Binding Capacity 156 ug/dL (250-450) L Percent Iron Saturation 11 % (15-50) L Unsaturated Iron Binding 139 ug/dL (112-346) Ferritin 334 NG/ML (8-388) Total Bilirubin 0.3 MG/DL (0.2-1.0) Gamma Glutamyl Transpeptidase 32 U/L (5-85) Aspartate Amino Transf (AST/SGOT) 27 U/L (15-37) Alanine Aminotransferase (ALT/SGPT) 32 U/L (12-78) Alkaline Phosphatase 90 U/L (46-116) Lactate Dehydrogenase 189 U/L (81-234) Total Creatine Kinase 87 U/L (26-308) Troponin I 0.130 ng/mL (0.000-0.056) C-Reactive Protein, Quantitative 20.1 mg/dL (0.00-0.90) H Pro-B-Type Natriuretic Peptide 9649 pg/mL (0-125) H Total Protein 7.6 G/DL (6.4-8.2) Albumin 2.4 G/DL (3.4-5.0) L Globulin 5.2 g/dL Albumin/Globulin Ratio 0.5 (1.0-2.7) L Triglycerides Level 120 MG/DL (30-150) Cholesterol Level 150 MG/DL (< 200) LDL Cholesterol 97 mg/dL (<100) HDL Cholesterol 15 MG/DL (40-60) L Cholesterol/HDL Ratio 10.0 (3.3-4.4) H Lipase 162 U/L (73-393) Carcinoembryonic Antigen Pending Vitamin B12 Level 354 PG/ML (193-986) Folate 4.9 NG/ML (8.6-58.9) L Thyroid Stimulating Hormone (TSH) 0.651 uiU/mL (0.358-3.740) Cortisol AM Sample 15.5 UG/DL Microbiology Date/Time Source Procedure Growth Status 07/07/18 17:00 Blood Blood Culture - Preliminary Gram Negative Michael Resulted 07/07/18 16:50 Blood Blood Culture - Preliminary Gram Negative Michael Resulted 07/08/18 09:52 Urine,Clean Catch Urine Culture - Preliminary NO GROWTH Resulted 07/07/18 18:08 Urine,Clean Catch Urine Culture - Preliminary Gram Negative Michael Resulted Ezio Huerta MD July 09, 2018 19:43
--- NOTE | 2018-07-09 19:45 | NUR ---
NURSE NOTES: patient received. patient in no acute distress at this time. patient complains of no pain at this time. patient awake and alert x4. patient IV intact patent and asymptomatic. Mckinley draining and intact. Patient bed in lowest position and locked. call light within reach. bed alarm on will continue to monitor.
[2018-07-09] MEDS: D5 1/2NS 1,000 ML IV SCH (20:33)
[2018-07-10] VITALS: BP 112/70
[2018-07-10] MEDS: Meropenem 500 MG in NS 55 ML IVPB SCH ×2 (02:30→14:17)
[2018-07-10 04:00] VITALS: BP 124/65
[2018-07-10] MEDS: D5 1/2NS 1,000 ML IV SCH (05:46)
[2018-07-10 07:14] LABS: HEMATOCRIT 26.4 % (37.0-47.0); HEMOGLOBIN 8.7 G/DL (12.0-16.0); MEAN CORPUSCULAR VOLUME 79 FL (80-99); PLATELET COUNT 232 K/UL (150-450); RED BLOOD COUNT 3.34 M/UL (4.20-5.40); RED CELL DISTRIBUTION WIDTH 14.1 % (11.6-14.8); WHITE BLOOD COUNT 17.5 K/UL (4.8-10.8)
--- NOTE | 2018-07-10 07:14 | NUR ---
HAND-OFF: Report given to lucy mario
--- NOTE | 2018-07-10 07:20 | NUR ---
NURSE NOTES: Report received from KEVIN Freeman. Pt shows no signs of distress, no SOB, no pain. A+Ox4. Respirations are even and unlabored on room air. IV site is patent, intact, and saline locked. Bed is at lowest position, brakes engaged, siderails x3, bed alarm on, and call light within reach. Pt is in stable condition at this time; will continue to monitor.
[2018-07-10 07:23] LABS: ALANINE AMINOTRANSFERASE 29 U/L (12-78); ALBUMIN 2.2 G/DL (3.4-5.0); ALBUMIN/GLOBULIN RATIO 0.4 (1.0-2.7); ALKALINE PHOSPHATASE 86 U/L (46-116); ANION GAP 7 mmol/L (5-15); ASPARTATE AMINO TRANSFERASE 27 U/L (15-37); BILIRUBIN,TOTAL 0.2 MG/DL (0.2-1.0); BLOOD UREA NITROGEN 24 mg/dL (7-18); CALCIUM 8.4 MG/DL (8.5-10.1); CARBON DIOXIDE 25 MMOL/L (21-32); CHLORIDE 106 MMOL/L (98-107); CREATININE 1.7 MG/DL (0.55-1.30); PHOSPHORUS 3.4 MG/DL (2.5-4.9); SODIUM 138 MMOL/L (136-145)
[2018-07-10 08:00] VITALS: BP 152/92
[2018-07-10] MEDS: Metoprolol Tartrate 50mg tab ORAL SCH ×2 (08:52→21:21)
[2018-07-10] MEDS: Heparin 5000 units/ml inj SUBQ SCH ×2 (08:52→21:22)
[2018-07-10] MEDS: Docusate 100mg cap ORAL SCH ×3 (08:53→17:22)
[2018-07-10] MEDS ORDERED: Imdur 30mg tab ORAL SCH (09:00)
--- NOTE | 2018-07-10 09:35 | 48 Hour Post Anesthesia Eval ---
Post Anesthesia Evaluation Procedure: Cystoscopy Date of Evaluation: July 10, 2018 Time of Evaluation: 09:34 Blood Pressure Systolic: 154 0: 68 Pulse Rate: 72 Respiratory Rate: 20 Temperature (Fahrenheit): 97.4 O2 Sat by Pulse Oximetry: 98 Airway: patent Nausea: No Vomiting: No Pain Intensity: 3 Hydration Status: adequate Cardiopulmonary Status: stable Mental Status/LOC: patient returned to baseline Follow-up Care/Observations: n/a Post-Anesthesia Complications: none Follow-up care needed: N/A Livan Mahan MD July 10, 2018 09:35
--- NOTE | 2018-07-10 09:50 | Nephrology Progress Note ---
Assessment/Plan Problem List: (1) ATN (acute tubular necrosis) (2) Chronic renal insufficiency (3) Hydronephrosis (4) Morbid obesity (5) Diabetes mellitus (6) Nephrolithiasis Assessment Acute renal failure : On Diuretics , Arnold Inhs, Meloxicam ? CKD Underlying UTI - Sepsis Morbid Obesity CHF HTN, Currently Low BP Anemia Plan had uro stone removed 07/09 Antibiotics Fluid challenge hills , I&O 24 h u for Ca Uric acid Anemia sinha Urology eval add Imdure and Lopressor per orders Enlarged hydronephrotic left kidney with cortical thinning and perinephric inflammation secondary to 1 cm obstructing UPJ stone. The obstruction is chronic. Multiple calyceal staghorn type calculi within the right kidney with presence of air in the collecting system. Consider infection. Atherosclerotic vascular disease. Cardiomegaly Diverticulosis of the colon Nondiagnostic evaluation of the pelvis due to bilateral total hip prosthetics. Degenerative changes of the spine Subjective ROS Limited/Unobtainable: No Constitutional: Reports: malaise Objective Objective Last 24 Hour Vital Signs Date Time Temp Pulse Resp B/P (MAP) Pulse Ox O2 Delivery O2 Flow Rate FiO2 07/10/18 09:35 72 20 98 07/10/18 08:52 101 152/92 07/10/18 08:51 152/92 07/10/18 08:00 97 07/10/18 08:00 98.1 101 20 152/92 (112) 96 07/10/18 07:30 99 18 Room Air 21 07/10/18 04:00 98.8 89 18 124/65 (84) 94 07/10/18 04:00 95 07/10/18 00:00 92 07/10/18 00:00 97.2 93 18 112/70 (84) 95 07/09/18 21:00 Room Air 07/09/18 20:32 92 137/77 07/09/18 20:00 97.8 105 18 111/61 (78) 95 07/09/18 20:00 99 07/09/18 19:31 92 18 Room Air 21 07/09/18 18:03 91 17 137/77 96 Nasal Cannula 3 91 07/09/18 17:45 91 17 137/77 96 Nasal Cannula 3 91 07/09/18 17:15 97.3 90 18 141/75 96 Nasal Cannula 3 90 07/09/18 17:00 91 15 144/85 96 Nasal Cannula 3 91 07/09/18 16:50 92 14 148/84 96 Nasal Cannula 3 92 07/09/18 16:40 99 16 146/89 96 Nasal Cannula 3 99 07/09/18 16:30 94 18 145/87 96 Simple Mask 6 94 07/09/18 16:23 97.9 105 16 142/90 96 Simple Mask 6 105 07/09/18 16:21 105 16 96 07/09/18 12:00 98.1 109 18 121/73 (89) 96 07/09/18 11:40 121 73/107 07/09/18 11:39 121/73 Intake and Output 07/09/18 07/10/18 19:00 07:00 Intake Total 220 ml 240 ml Output Total 3055 ml 500 ml Balance -2835 ml -260 ml Intake Oral 120 ml 240 ml IV Total 100 ml Output Urine Total 3050 ml 500 ml Estimated Blood Loss 5 ml # Bowel Movements 1 Laboratory Tests 07/10/18 05:50: White Blood Count 17.5H, Red Blood Count 3.34L, Hemoglobin 8.7L, Hematocrit 26.4L, Mean Corpuscular Volume 79L, Mean Corpuscular Hemoglobin 26.1L, Mean Corpuscular Hemoglobin Concent 32.9, Red Cell Distribution Width 14.1, Platelet Count 232, Mean Platelet Volume 10.0, Neutrophils (%) (Auto) , Lymphocytes (%) ( Auto) , Monocytes (%) (Auto) , Eosinophils (%) (Auto) , Basophils (%) (Auto) , Differential Total Cells Counted 100, Neutrophils % (Manual) 82H, Lymphocytes % (Manual) 13L, Monocytes % (Manual) 5, Eosinophils % (Manual) 0, Basophils % ( Manual) 0, Band Neutrophils 0, Platelet Estimate Adequate, Platelet Morphology Normal, Hypochromasia 1+, Sodium Level 138, Potassium Level 5.0, Chloride Level 106, Carbon Dioxide Level 25, Anion Gap 7, Blood Urea Nitrogen 24H, Creatinine 1.7H, Estimat Glomerular Filtration Rate 36.0, Glucose Level 132H, Uric Acid 7.1 , Calcium Level 8.4L, Calcium (Send out) [Pending], Phosphorus Level 3.4, Magnesium Level 1.7L, Total Bilirubin 0.2, Aspartate Amino Transf (AST/SGOT) 27 , Alanine Aminotransferase (ALT/SGPT) 29, Alkaline Phosphatase 86, C-Reactive Protein, Quantitative 21.6H, Pro-B-Type Natriuretic Peptide 9493H, Total Protein 7.2, Albumin 2.2L, Globulin 5.0, Albumin/Globulin Ratio 0.4L, Parathyroid Hormone (Intact) [Pending] Height (Feet): 5 Height (Inches): 3.00 Weight (Pounds): 288 General Appearance: no apparent distress Cardiovascular: regular rhythm Respiratory/Chest: decreased breath sounds Abdomen: other - obese Genitourinary/Rectal: other - Librado Epps MD July 10, 2018 09:49
--- NOTE | 2018-07-10 10:15 | NUR ---
NURSE NOTES: Pt's Mg level is 1.[address] Bangura aware and he ordered Mg sulfate 2 gm IVPB to replace. Order noted and carried out.
[2018-07-10 12:00] VITALS: BP 105/67
--- NOTE | 2018-07-10 12:52 | Pulmonology Progress Note ---
Assessment/Plan Problems: (1) Sepsis (2) ATN (acute tubular necrosis) (3) Hydronephrosis (4) Cardiomyopathy (5) CAD (coronary artery disease) (6) Morbid obesity (7) HTN (hypertension) Assessment/Plan wbc decreasing IV fluids Ecoli is pansensitive f/u ID recommendations about the choice of abx. tolerated surgery for urethral stent continue IV abx check electrolytes dvt prophylaxis symptomatic treatment Subjective ROS Limited/Unobtainable: No Constitutional: Reports: no symptoms HEENT: Repors: no symptoms Respiratory: Reports: no symptoms Allergies: Coded Allergies: CODEINE (Verified Adverse Reaction, Intermediate, 03/19/13) Objective Last 24 Hour Vital Signs Date Time Temp Pulse Resp B/P (MAP) Pulse Ox O2 Delivery O2 Flow Rate FiO2 07/10/18 09:35 72 20 98 07/10/18 09:00 Room Air 07/10/18 08:52 101 152/92 07/10/18 08:51 152/92 07/10/18 08:00 97 07/10/18 08:00 98.1 101 20 152/92 (112) 96 07/10/18 07:30 99 18 Room Air 21 07/10/18 04:00 98.8 89 18 124/65 (84) 94 07/10/18 04:00 95 07/10/18 00:00 92 07/10/18 00:00 97.2 93 18 112/70 (84) 95 07/09/18 21:00 Room Air 07/09/18 20:32 92 137/77 07/09/18 20:00 97.8 105 18 111/61 (78) 95 07/09/18 20:00 99 07/09/18 19:31 92 18 Room Air 21 07/09/18 18:03 91 17 137/77 96 Nasal Cannula 3 91 07/09/18 17:45 91 17 137/77 96 Nasal Cannula 3 91 07/09/18 17:15 97.3 90 18 141/75 96 Nasal Cannula 3 90 07/09/18 17:00 91 15 144/85 96 Nasal Cannula 3 91 07/09/18 16:50 92 14 148/84 96 Nasal Cannula 3 92 07/09/18 16:40 99 16 146/89 96 Nasal Cannula 3 99 07/09/18 16:30 94 18 145/87 96 Simple Mask 6 94 07/09/18 16:23 97.9 105 16 142/90 96 Simple Mask 6 105 07/09/18 16:21 105 16 96 Intake and Output 07/09/18 07/10/18 18:59 06:59 Intake Total 220 ml 240 ml Output Total 3055 ml 500 ml Balance -2835 ml -260 ml Intake Oral 120 ml 240 ml IV Total 100 ml Output Urine Total 3050 ml 500 ml Estimated Blood Loss 5 ml # Bowel Movements 1 General Appearance: WD/WN HEENT: normocephalic, atraumatic Respiratory/Chest: chest wall non-tender, lungs clear Breasts: no masses Cardiovascular: normal peripheral pulses Abdomen: normal bowel sounds, soft, non tender Genitourinary: normal external genitalia Extremities: no cyanosis Skin: no rash Neurologic/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 Complete 07/08/18 09:52 Urine,Clean Catch Urine Culture - Final Gram Negative Michael Complete 07/07/18 18:08 Urine,Clean Catch Urine Culture - Final Escherichia Coli Complete Laboratory Tests 07/10/18 05:50: White Blood Count 17.5H, Red Blood Count 3.34L, Hemoglobin 8.7L, Hematocrit 26.4L, Mean Corpuscular Volume 79L, Mean Corpuscular Hemoglobin 26.1L, Mean Corpuscular Hemoglobin Concent 32.9, Red Cell Distribution Width 14.1, Platelet Count 232, Mean Platelet Volume 10.0, Neutrophils (%) (Auto) , Lymphocytes (%) ( Auto) , Monocytes (%) (Auto) , Eosinophils (%) (Auto) , Basophils (%) (Auto) , Differential Total Cells Counted 100, Neutrophils % (Manual) 82H, Lymphocytes % (Manual) 13L, Monocytes % (Manual) 5, Eosinophils % (Manual) 0, Basophils % ( Manual) 0, Band Neutrophils 0, Platelet Estimate Adequate, Platelet Morphology Normal, Hypochromasia 1+, Sodium Level 138, Potassium Level 5.0, Chloride Level 106, Carbon Dioxide Level 25, Anion Gap 7, Blood Urea Nitrogen 24H, Creatinine 1.7H, Estimat Glomerular Filtration Rate 36.0, Glucose Level 132H, Uric Acid 7.1 , Calcium Level 8.4L, Calcium (Send out) [Pending], Phosphorus Level 3.4, Magnesium Level 1.7L, Total Bilirubin 0.2, Aspartate Amino Transf (AST/SGOT) 27 , Alanine Aminotransferase (ALT/SGPT) 29, Alkaline Phosphatase 86, C-Reactive Protein, Quantitative 21.6H, Pro-B-Type Natriuretic Peptide 9493H, Total Protein 7.2, Albumin 2.2L, Globulin 5.0, Albumin/Globulin Ratio 0.4L, Parathyroid Hormone (Intact) [Pending] Current Medications Medications (Trade) Dose Ordered Sig/Rufina Route PRN Reason Start Time Stop Time Status Last Admin Dose Admin Acetaminophen (Tylenol) 650 mg Q4H PRN ORAL fever 07/07/18 20:45 08/06/18 20:44 Acetaminophen/ Hydrocodone Bitart ([place] 5/325) 1 tab Q6H PRN ORAL PAIN 4-10 07/09/18 09:00 07/15/18 12:14 Albuterol/ Ipratropium (Albuterol/ Ipratropium) 3 ml Q4H PRN HHN Shortness of Breath 07/07/18 20:45 07/12/18 20:44 Aspirin (ASA) 325 mg DAILY ORAL 07/09/18 09:00 08/08/18 08:59 07/10/18 08:51 Dextrose (Dextrose 50%) 25 ml Q30M PRN IV Hypoglycemia 07/07/18 20:45 08/06/18 20:44 Dextrose (Dextrose 50%) 50 ml Q30M PRN IV Hypoglycemia 07/07/18 20:45 08/06/18 20:44 Dextrose/Sodium Chloride 1,000 ml @ 100 mls/hr Q10H IV 07/09/18 20:00 08/08/18 19:59 07/10/18 05:46 Diazepam (Valium) 2.5 mg BIDPRN PRN ORAL For Anxiety 07/09/18 14:30 07/15/18 15:44 Docusate Sodium (Colace) 100 mg THREE TIMES A DAY ORAL 07/08/18 13:00 08/07/18 12:59 Folic Acid (Folate) 3 mg DAILY ORAL 07/09/18 10:45 08/08/18 10:44 07/10/18 08:51 Heparin Sodium (Porcine) (Heparin 5000 units/ml) 5,000 units EVERY 12 HOURS SUBQ 07/07/18 21:00 08/06/18 20:59 07/10/18 08:52 Isosorbide Mononitrate (Imdur) 30 mg DAILY ORAL 07/10/18 09:00 08/09/18 08:59 07/10/18 08:51 Magnesium Sulfate 100 ml @ 100 mls/hr Q1H IVPB 07/10/18 11:00 07/10/18 12:59 07/10/18 11:07 Meropenem 500 mg/ Sodium Chloride 55 ml @ 110 mls/hr Q12HR@0200,1400 IVPB 07/08/18 14:00 07/13/18 13:59 07/10/18 02:30 Metoprolol Tartrate (Lopressor) 50 mg Q12HR ORAL 07/09/18 10:45 08/08/18 10:44 07/10/18 08:52 Morphine Sulfate (Morphine Sulfate) 2 mg Q4H PRN IVP Severe Breakthru Pain (>7) 07/09/18 09:00 07/14/18 20:44 Nitroglycerin (Ntg) 0.4 mg Q5M PRN SL Prn Chest Pain 07/07/18 20:45 08/06/18 20:44 Ondansetron HCl (Zofran) 4 mg Q6H PRN IVP Nausea & Vomiting 07/07/18 20:45 08/06/18 20:44 Pantoprazole (Protonix) 40 mg EVERY 12 HOURS ORAL 07/08/18 21:00 08/07/18 20:59 07/10/18 08:51 Polyethylene Glycol (Miralax) 17 gm DAILYPRN PRN ORAL Constipation 07/07/18 20:45 08/06/18 20:44 Temazepam (Restoril) 15 mg HSPRN PRN ORAL Insomnia 07/07/18 20:45 07/14/18 20:44 Reyes Bangura MD July 10, 2018 12:52
--- NOTE | 2018-07-10 13:01 | NUR ---
RD ASSESSMENT & RECOMMENDATIONS SEE CARE ACTIVITY FOR COMPLETE ASSESSMENT DAILY ESTIMATED NEEDS: Needs based on DM, morbid obesity, 73kg adj 20-25 kcals/kg 5339-7315 total kcals 1-1.5 g protein/kg 73-110 g total protein 25-30 mL/kg 0239-8701 total fluid mLs NUTRITION DIAGNOSIS: Decreased sodium and fat needs r/t renal history and BMI as evidenced by pt w/ renal insufficiency, elev BP, BMI >40, 216% IBW. CURRENT DIET: regular PO DIET RECOMMENDATIONS: Cardiac/ CCHO LOW diet w/ HIGH PRO SNACKS BID in b/w meals ADDITIONAL RECOMMENDATIONS: 1) Hypoglycemics prn 2) Standing weight for accurate eval 3) Lytes daily, replete as needed (Low Mg)
--- NOTE | 2018-07-10 14:21 | Infectious Diseases Prog Note ---
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 The obstruction is chronic. 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 Recommend reevaluation with IV contrast. Multiple calyceal staghorn type calculi within the right kidney with presence of air in the collecting system. Consider infection. Atherosclerotic vascular disease. Cardiomegaly Diverticulosis of the colon Nondiagnostic evaluation of the pelvis due to bilateral total hip prosthetics. Degenerative changes of the spine -CXR: Cardiomegaly. No acute disease Afebrile Leukocytosis; improving COURTNEY; improving CHF HTN Plan: -Switch empiric Meropenem #05/15 to Ceftriaxone -upon discharge will transition to PO Ciprofloxacin (highest dose renally dose) -07/08 SP IV Vancomycin #2, Cefepime #2 -07/07 SP Zosyn x1 -f.u cx -Monitor CBC/CMP, temperatures -Uro f/u -aspiration precautions Thank you for this consultation. Will continue to follow along with you. Subjective Allergies: Coded Allergies: CODEINE (Verified Adverse Reaction, Intermediate, 03/19/13) Subjective afebrile repeat Bcx NTD wbc and Cr improving Objective Vital Signs Last 24 Hour Vital Signs Date Time Temp Pulse Resp B/P (MAP) Pulse Ox O2 Delivery O2 Flow Rate FiO2 07/10/18 12:00 97.5 91 18 105/67 (80) 95 07/10/18 09:35 72 20 98 07/10/18 09:00 Room Air 07/10/18 08:52 101 152/92 07/10/18 08:51 152/92 07/10/18 08:00 97 07/10/18 08:00 98.1 101 20 152/92 (112) 96 07/10/18 07:30 99 18 Room Air 21 07/10/18 04:00 98.8 89 18 124/65 (84) 94 07/10/18 04:00 95 07/10/18 00:00 92 07/10/18 00:00 97.2 93 18 112/70 (84) 95 07/09/18 21:00 Room Air 07/09/18 20:32 92 137/77 07/09/18 20:00 97.8 105 18 111/61 (78) 95 07/09/18 20:00 99 07/09/18 19:31 92 18 Room Air 21 07/09/18 18:03 91 17 137/77 96 Nasal Cannula 3 91 07/09/18 17:45 91 17 137/77 96 Nasal Cannula 3 91 07/09/18 17:15 97.3 90 18 141/75 96 Nasal Cannula 3 90 07/09/18 17:00 91 15 144/85 96 Nasal Cannula 3 91 07/09/18 16:50 92 14 148/84 96 Nasal Cannula 3 92 07/09/18 16:40 99 16 146/89 96 Nasal Cannula 3 99 07/09/18 16:30 94 18 145/87 96 Simple Mask 6 94 07/09/18 16:23 97.9 105 16 142/90 96 Simple Mask 6 105 07/09/18 16:21 105 16 96 Height (Feet): 5 Height (Inches): 3.00 Weight (Pounds): 288 Objective General Appearance: other - Somewhat pale Head: normocephalic, atraumatic Eyes: bilateral eye PERRL, bilateral eye EOMI ENT: normal pharynx, no angioedema Neck: supple Respiratory: lungs clear, no retraction Cardiovascular #1: tachycardia Gastrointestinal: non tender, soft Genitourinary: no CVA tenderness Musculoskeletal: normal inspection Neurologic: alert, oriented x3, responsive, 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 Complete 07/08/18 09:52 Urine,Clean Catch Urine Culture - Final Gram Negative Michael Complete 07/07/18 18:08 Urine,Clean Catch Urine Culture - Final Escherichia Coli Complete Laboratory Tests Test 07/10/18 05:50 White Blood Count 17.5 K/UL (4.8-10.8) H Red Blood Count 3.34 M/UL (4.20-5.40) L Hemoglobin 8.7 G/DL (12.0-16.0) L Hematocrit 26.4 % (37.0-47.0) L Mean Corpuscular Volume 79 FL (80-99) L Mean Corpuscular Hemoglobin 26.1 PG (27.0-31.0) L Mean Corpuscular Hemoglobin Concent 32.9 G/DL (32.0-36.0) Red Cell Distribution Width 14.1 % (11.6-14.8) Platelet Count 232 K/UL (150-450) Mean Platelet Volume 10.0 FL (6.5-10.1) Neutrophils (%) (Auto) % (45.0-75.0) Lymphocytes (%) (Auto) % (20.0-45.0) Monocytes (%) (Auto) % (1.0-10.0) Eosinophils (%) (Auto) % (0.0-3.0) Basophils (%) (Auto) % (0.0-2.0) Differential Total Cells Counted 100 Neutrophils % (Manual) 82 % (45-75) H Lymphocytes % (Manual) 13 % (20-45) L Monocytes % (Manual) 5 % (1-10) Eosinophils % (Manual) 0 % (0-3) Basophils % (Manual) 0 % (0-2) Band Neutrophils 0 % (0-8) Platelet Estimate Adequate Platelet Morphology Normal Hypochromasia 1+ Sodium Level 138 MMOL/L (136-145) Potassium Level 5.0 MMOL/L (3.5-5.1) Chloride Level 106 MMOL/L (98-107) Carbon Dioxide Level 25 MMOL/L (21-32) Anion Gap 7 mmol/L (5-15) Blood Urea Nitrogen 24 mg/dL (7-18) H Creatinine 1.7 MG/DL (0.55-1.30) H Estimat Glomerular Filtration Rate 36.0 mL/min (>60) Glucose Level 132 MG/DL (74-106) H Uric Acid 7.1 MG/DL (2.6-7.2) Calcium Level 8.4 MG/DL (8.5-10.1) L Calcium (Send out) Pending Phosphorus Level 3.4 MG/DL (2.5-4.9) Magnesium Level 1.7 MG/DL (1.8-2.4) L Total Bilirubin 0.2 MG/DL (0.2-1.0) Aspartate Amino Transf (AST/SGOT) 27 U/L (15-37) Alanine Aminotransferase (ALT/SGPT) 29 U/L (12-78) Alkaline Phosphatase 86 U/L (46-116) C-Reactive Protein, Quantitative 21.6 mg/dL (0.00-0.90) H Pro-B-Type Natriuretic Peptide 9493 pg/mL (0-125) H Total Protein 7.2 G/DL (6.4-8.2) Albumin 2.2 G/DL (3.4-5.0) L Globulin 5.0 g/dL Albumin/Globulin Ratio 0.4 (1.0-2.7) L Parathyroid Hormone (Intact) Pending Current Medications Medications (Trade) Dose Ordered Sig/Rufina Route PRN Reason Start Time Stop Time Status Last Admin Dose Admin Acetaminophen (Tylenol) 650 mg Q4H PRN ORAL fever 07/07/18 20:45 08/06/18 20:44 Acetaminophen/ Hydrocodone Bitart ([place] 5/325) 1 tab Q6H PRN ORAL PAIN 4-10 07/09/18 09:00 07/15/18 12:14 Albuterol/ Ipratropium (Albuterol/ Ipratropium) 3 ml Q4H PRN HHN Shortness of Breath 07/07/18 20:45 07/12/18 20:44 Aspirin (ASA) 325 mg DAILY ORAL 07/09/18 09:00 08/08/18 08:59 07/10/18 08:51 Dextrose (Dextrose 50%) 25 ml Q30M PRN IV Hypoglycemia 07/07/18 20:45 08/06/18 20:44 Dextrose (Dextrose 50%) 50 ml Q30M PRN IV Hypoglycemia 07/07/18 20:45 08/06/18 20:44 Dextrose/Sodium Chloride 1,000 ml @ 100 mls/hr Q10H IV 07/09/18 20:00 08/08/18 19:59 07/10/18 05:46 Diazepam (Valium) 2.5 mg BIDPRN PRN ORAL For Anxiety 07/09/18 14:30 07/15/18 15:44 Docusate Sodium (Colace) 100 mg THREE TIMES A DAY ORAL 07/08/18 13:00 08/07/18 12:59 Folic Acid (Folate) 3 mg DAILY ORAL 07/09/18 10:45 08/08/18 10:44 07/10/18 08:51 Heparin Sodium (Porcine) (Heparin 5000 units/ml) 5,000 units EVERY 12 HOURS SUBQ 07/07/18 21:00 08/06/18 20:59 07/10/18 08:52 Isosorbide Mononitrate (Imdur) 30 mg DAILY ORAL 07/10/18 09:00 08/09/18 08:59 07/10/18 08:51 Meropenem 500 mg/ Sodium Chloride 55 ml @ 110 mls/hr Q12HR@0200,1400 IVPB 07/08/18 14:00 07/13/18 13:59 07/10/18 02:30 Metoprolol Tartrate (Lopressor) 50 mg Q12HR ORAL 07/09/18 10:45 08/08/18 10:44 07/10/18 08:52 Morphine Sulfate (Morphine Sulfate) 2 mg Q4H PRN IVP Severe Breakthru Pain (>7) 07/09/18 09:00 07/14/18 20:44 Nitroglycerin (Ntg) 0.4 mg Q5M PRN SL Prn Chest Pain 07/07/18 20:45 08/06/18 20:44 Ondansetron HCl (Zofran) 4 mg Q6H PRN IVP Nausea & Vomiting 07/07/18 20:45 08/06/18 20:44 Pantoprazole (Protonix) 40 mg EVERY 12 HOURS ORAL 07/08/18 21:00 08/07/18 20:59 07/10/18 08:51 Polyethylene Glycol (Miralax) 17 gm DAILYPRN PRN ORAL Constipation 07/07/18 20:45 08/06/18 20:44 Temazepam (Restoril) 15 mg HSPRN PRN ORAL Insomnia 07/07/18 20:45 07/14/18 20:44 Emilie Tena M.D. July 10, 2018 14:21
--- NOTE | 2018-07-10 15:58 | Internal Med Progress Note ---
Subjective Date of Service: July 10, 2018 Physician Name Chencho Haddad Attending Physician Georges Harper MD Current Medications Medications (Trade) Dose Ordered Sig/Rufina Route PRN Reason Start Time Stop Time Status Last Admin Dose Admin Acetaminophen (Tylenol) 650 mg Q4H PRN ORAL fever 07/07/18 20:45 08/06/18 20:44 Acetaminophen/ Hydrocodone Bitart ([place] 5/325) 1 tab Q6H PRN ORAL PAIN 4-10 07/09/18 09:00 07/15/18 12:14 Albuterol/ Ipratropium (Albuterol/ Ipratropium) 3 ml Q4H PRN HHN Shortness of Breath 07/07/18 20:45 07/12/18 20:44 Aspirin (ASA) 325 mg DAILY ORAL 07/09/18 09:00 08/08/18 08:59 07/10/18 08:51 Ceftriaxone Sodium 2 gm/ Dextrose 55 ml @ 110 mls/hr Q24H IVPB 07/10/18 16:00 07/17/18 15:59 Dextrose (Dextrose 50%) 25 ml Q30M PRN IV Hypoglycemia 07/07/18 20:45 08/06/18 20:44 Dextrose (Dextrose 50%) 50 ml Q30M PRN IV Hypoglycemia 07/07/18 20:45 08/06/18 20:44 Dextrose/Sodium Chloride 1,000 ml @ 100 mls/hr Q10H IV 07/09/18 20:00 08/08/18 19:59 07/10/18 05:46 Diazepam (Valium) 2.5 mg BIDPRN PRN ORAL For Anxiety 07/09/18 14:30 07/15/18 15:44 Docusate Sodium (Colace) 100 mg THREE TIMES A DAY ORAL 07/08/18 13:00 08/07/18 12:59 Folic Acid (Folate) 3 mg DAILY ORAL 07/09/18 10:45 08/08/18 10:44 07/10/18 08:51 Heparin Sodium (Porcine) (Heparin 5000 units/ml) 5,000 units EVERY 12 HOURS SUBQ 07/07/18 21:00 08/06/18 20:59 07/10/18 08:52 Isosorbide Mononitrate (Imdur) 30 mg DAILY ORAL 07/10/18 09:00 08/09/18 08:59 07/10/18 08:51 Metoprolol Tartrate (Lopressor) 50 mg Q12HR ORAL 07/09/18 10:45 08/08/18 10:44 07/10/18 08:52 Morphine Sulfate (Morphine Sulfate) 2 mg Q4H PRN IVP Severe Breakthru Pain (>7) 07/09/18 09:00 07/14/18 20:44 Nitroglycerin (Ntg) 0.4 mg Q5M PRN SL Prn Chest Pain 07/07/18 20:45 08/06/18 20:44 Ondansetron HCl (Zofran) 4 mg Q6H PRN IVP Nausea & Vomiting 07/07/18 20:45 08/06/18 20:44 Pantoprazole (Protonix) 40 mg EVERY 12 HOURS ORAL 07/08/18 21:00 08/07/18 20:59 07/10/18 08:51 Polyethylene Glycol (Miralax) 17 gm DAILYPRN PRN ORAL Constipation 07/07/18 20:45 08/06/18 20:44 Temazepam (Restoril) 15 mg HSPRN PRN ORAL Insomnia 07/07/18 20:45 07/14/18 20:44 Allergies: Coded Allergies: CODEINE (Verified Adverse Reaction, Intermediate, 03/19/13) ROS Limited/Unobtainable: No Constitutional: Reports: no symptoms HEENT: Reports: no symptoms Cardiovascular: Reports: no symptoms Respiratory: Reports: no symptoms Gastrointestinal/Abdominal: Reports: no symptoms Genitourinary: Reports: no symptoms Neurologic/Psychiatric: Reports: no symptoms Subjective 68 YO F admitted with gen weakness. Now UTI and sepsis. Cover for Int [place]-Dr Harper Objective Last Vital Signs Date Time Temp Pulse Resp B/P (MAP) Pulse Ox O2 Delivery O2 Flow Rate FiO2 07/10/18 12:00 97.5 91 18 105/67 (80) 95 07/10/18 09:00 Room Air 07/10/18 07:30 21 07/09/18 18:03 3 Laboratory Tests Test 07/10/18 05:50 White Blood Count 17.5 K/UL (4.8-10.8) H Red Blood Count 3.34 M/UL (4.20-5.40) L Hemoglobin 8.7 G/DL (12.0-16.0) L Hematocrit 26.4 % (37.0-47.0) L Mean Corpuscular Volume 79 FL (80-99) L Mean Corpuscular Hemoglobin 26.1 PG (27.0-31.0) L Mean Corpuscular Hemoglobin Concent 32.9 G/DL (32.0-36.0) Red Cell Distribution Width 14.1 % (11.6-14.8) Platelet Count 232 K/UL (150-450) Mean Platelet Volume 10.0 FL (6.5-10.1) Neutrophils (%) (Auto) % (45.0-75.0) Lymphocytes (%) (Auto) % (20.0-45.0) Monocytes (%) (Auto) % (1.0-10.0) Eosinophils (%) (Auto) % (0.0-3.0) Basophils (%) (Auto) % (0.0-2.0) Differential Total Cells Counted 100 Neutrophils % (Manual) 82 % (45-75) H Lymphocytes % (Manual) 13 % (20-45) L Monocytes % (Manual) 5 % (1-10) Eosinophils % (Manual) 0 % (0-3) Basophils % (Manual) 0 % (0-2) Band Neutrophils 0 % (0-8) Platelet Estimate Adequate Platelet Morphology Normal Hypochromasia 1+ Sodium Level 138 MMOL/L (136-145) Potassium Level 5.0 MMOL/L (3.5-5.1) Chloride Level 106 MMOL/L (98-107) Carbon Dioxide Level 25 MMOL/L (21-32) Anion Gap 7 mmol/L (5-15) Blood Urea Nitrogen 24 mg/dL (7-18) H Creatinine 1.7 MG/DL (0.55-1.30) H Estimat Glomerular Filtration Rate 36.0 mL/min (>60) Glucose Level 132 MG/DL (74-106) H Uric Acid 7.1 MG/DL (2.6-7.2) Calcium Level 8.4 MG/DL (8.5-10.1) L Calcium (Send out) Pending Phosphorus Level 3.4 MG/DL (2.5-4.9) Magnesium Level 1.7 MG/DL (1.8-2.4) L Total Bilirubin 0.2 MG/DL (0.2-1.0) Aspartate Amino Transf (AST/SGOT) 27 U/L (15-37) Alanine Aminotransferase (ALT/SGPT) 29 U/L (12-78) Alkaline Phosphatase 86 U/L (46-116) C-Reactive Protein, Quantitative 21.6 mg/dL (0.00-0.90) H Pro-B-Type Natriuretic Peptide 9493 pg/mL (0-125) H Total Protein 7.2 G/DL (6.4-8.2) Albumin 2.2 G/DL (3.4-5.0) L Globulin 5.0 g/dL Albumin/Globulin Ratio 0.4 (1.0-2.7) L Parathyroid Hormone (Intact) Pending Microbiology Date/Time Source Procedure Growth Status 07/08/18 16:19 Blood Blood Culture - Preliminary NO GROWTH AFTER 24 HOURS Resulted 07/08/18 16:05 Blood Blood Culture - Preliminary NO GROWTH AFTER 24 HOURS Resulted 07/07/18 17:00 Blood Blood Culture - Final Escherichia Coli Complete 07/07/18 16:50 Blood Blood Culture - Final Escherichia Coli Complete 07/07/18 19:58 Nasal Nares MRSA Culture - Final NO METHICILLIN RESISTANT STAPH AUREUS... Complete 07/08/18 09:52 Urine,Clean Catch Urine Culture - Final Gram Negative Michael Complete 07/07/18 18:08 Urine,Clean Catch Urine Culture - Final Escherichia Coli Complete Intake and Output 07/09/18 07/10/18 18:59 06:59 Intake Total 220 ml 240 ml Output Total 3055 ml 500 ml Balance -2835 ml -260 ml Intake Oral 120 ml 240 ml IV Total 100 ml Output Urine Total 3050 ml 500 ml Estimated Blood Loss 5 ml # Bowel Movements 1 Objective HYSICAL EXAMINATION: GENERAL: The patient is a well-developed and well-nourished slightly obese female, in no apparent distress. HEENT: Eyes, pupils are equal and responsive to light and accommodation. Extraocular movements are intact. NECK: Supple without lymphadenopathy. CHEST: Lungs are clear to auscultation bilaterally without wheezes or rales. CARDIOVASCULAR: Regular rhythm and rate. S1 and S2 are normal without murmurs, rubs, or gallops. ABDOMEN: Soft, nontender, and nondistended. Positive bowel sounds. No evidence of hepatosplenomegaly. Currently, no rebound or guarding noted. EXTREMITIES: Negative for clubbing, cyanosis, or edema. RECTAL/GENITAL: Not performed. NEUROLOGIC: Cranial nerves II through XII are grossly intact without focal deficits. Motor strength is 5/5 bilaterally. Deep tendon reflexes are 2+ plantar. Assessment/Plan Assessment/Plan ASSESSMENT: This is a 68-year-old female. 1. Generalized weakness. 2. Urinary tract infection. 3. Probable sepsis. 4. Leukocytosis. 5. Left hydronephrosis. 6. Left UPJ stone. 7. Hypertension. 8. Congestive heart failure. 9. Cerebrovascular disease. 10. Hypercholesterolemia. TREATMENT: 1. Urinary tract infection=E. Coli. The patient has been started on Ceftriaxone per ID. An Infectious Disease consultation has been obtained with Dr. Tena. 2. Sepsis=E.Coli. Await ID and sensitivity. Continue Ceftriaxone per ID 3. Leukocytosis. 4. Generalized weakness. 5. Left hydronephrosis/left UPJ stone. An Urology consultation has been obtained with Dr. Savage. 6. Hypertension. The patient is currently hypotensive. Hold antihypertensive medications as above. 7. Congestive heart failure. 8. Cerebrovascular disease. 9. Hypercholesterolemia. Cehncho Haddad MD July 10, 2018 15:58
[2018-07-10 16:00] VITALS: BP 122/91
[2018-07-10] MEDS ORDERED: cefTRIAXone 2 GM in D5W 55 ML IVPB SCH ×4 (16:00)
--- NOTE | 2018-07-10 16:09 | NUR ---
NURSE NOTES: Pt transferred safely to . Belongings sent with patient. Pt is in stable condition. Orders transferred. Plan of care endorsed.
[2018-07-10] MEDS ORDERED: Miralax 17gm pkt ORAL PRN (16:11)
[2018-07-10] MEDS ORDERED: Albuterol/Ipratropium 3ml neb HHN PRN (16:12)
[2018-07-10] MEDS ORDERED: Morphine Sulfate 2mg/ml Inj(IV/IM USE ONLY) IVP PRN (16:13)
[2018-07-10] MEDS ORDERED: HYDROcodone/Acetamin 5/325 tab ORAL PRN (16:13)
[2018-07-10] MEDS ORDERED: Nitroglycerin Subl 0.4mg tab SL PRN (16:15)
[2018-07-10] MEDS ORDERED: D5 1/2NS 1,000 ML IV SCH (16:15)
--- NOTE | 2018-07-10 16:26 | NUR ---
NURSE NOTES: Patient transferred from Telemetry. Report received from KEVIN Nicolas for continuity of care.
--- NOTE | 2018-07-10 19:25 | NUR ---
HAND-OFF: Report given to KEVIN Giles.
--- NOTE | 2018-07-10 19:30 | NUR ---
NURSE NOTES: Received patient in no apparent distress. A&OX4. IV site patent and intact. 24hr urine collection on. Bed in lowest position. Call light within reach. Will continue to monitor.
[2018-07-10 20:00] VITALS: BP 132/83
--- NOTE | 2018-07-10 20:58 | Cardiology Progress Note ---
Assessment/Plan Assessment/Plan cm non ischemic ef 20-25% nephrolithiasis bacteremia pyelonephritics obesity hyperlipidemia chronic chf nsvt cri wbc imporoved iv abx not in acute chf yet keep on chf meds when bp improves and as cr allow did not tolerate bb due to fatigue no vt now off tele on med surg cath at [facility] 2016 non sig cad not on acei due to elelvated k and cr will use norvasc for now doign well wbc improved will dc ivf as at risk of chf Subjective Cardiovascular: Denies: chest pain, lightheadedness, palpitations Respiratory: Denies: shortness of breath Gastrointestinal/Abdominal: Denies: abdominal pain Genitourinary: Denies: burning Objective Last 24 Hour Vital Signs Date Time Temp Pulse Resp B/P (MAP) Pulse Ox O2 Delivery O2 Flow Rate FiO2 07/10/18 19:30 96 16 Room Air 21 07/10/18 16:00 98.3 98 16 122/91 (101) 99 07/10/18 12:00 97.5 91 18 105/67 (80) 95 07/10/18 12:00 91 07/10/18 09:35 72 20 98 07/10/18 09:00 Room Air 07/10/18 08:52 101 152/92 07/10/18 08:51 152/92 07/10/18 08:00 97 07/10/18 08:00 98.1 101 20 152/92 (112) 96 07/10/18 07:30 99 18 Room Air 21 07/10/18 04:00 98.8 89 18 124/65 (84) 94 07/10/18 04:00 95 07/10/18 00:00 92 07/10/18 00:00 97.2 93 18 112/70 (84) 95 07/09/18 21:00 Room Air General Appearance: alert, obese Neck: no JVD Cardiovascular: normal rate, regular rhythm Respiratory/Chest: lungs clear Abdomen: normal bowel sounds, non tender, soft Extremities: no swelling Intake and Output 07/09/18 07/10/18 19:00 07:00 Intake Total 220 ml 240 ml Output Total 3055 ml 500 ml Balance -2835 ml -260 ml Intake Oral 120 ml 240 ml IV Total 100 ml Output Urine Total 3050 ml 500 ml Estimated Blood Loss 5 ml # Bowel Movements 1 Laboratory Tests Test 07/10/18 05:50 White Blood Count 17.5 K/UL (4.8-10.8) H Red Blood Count 3.34 M/UL (4.20-5.40) L Hemoglobin 8.7 G/DL (12.0-16.0) L Hematocrit 26.4 % (37.0-47.0) L Mean Corpuscular Volume 79 FL (80-99) L Mean Corpuscular Hemoglobin 26.1 PG (27.0-31.0) L Mean Corpuscular Hemoglobin Concent 32.9 G/DL (32.0-36.0) Red Cell Distribution Width 14.1 % (11.6-14.8) Platelet Count 232 K/UL (150-450) Mean Platelet Volume 10.0 FL (6.5-10.1) Neutrophils (%) (Auto) % (45.0-75.0) Lymphocytes (%) (Auto) % (20.0-45.0) Monocytes (%) (Auto) % (1.0-10.0) Eosinophils (%) (Auto) % (0.0-3.0) Basophils (%) (Auto) % (0.0-2.0) Differential Total Cells Counted 100 Neutrophils % (Manual) 82 % (45-75) H Lymphocytes % (Manual) 13 % (20-45) L Monocytes % (Manual) 5 % (1-10) Eosinophils % (Manual) 0 % (0-3) Basophils % (Manual) 0 % (0-2) Band Neutrophils 0 % (0-8) Platelet Estimate Adequate Platelet Morphology Normal Hypochromasia 1+ Sodium Level 138 MMOL/L (136-145) Potassium Level 5.0 MMOL/L (3.5-5.1) Chloride Level 106 MMOL/L (98-107) Carbon Dioxide Level 25 MMOL/L (21-32) Anion Gap 7 mmol/L (5-15) Blood Urea Nitrogen 24 mg/dL (7-18) H Creatinine 1.7 MG/DL (0.55-1.30) H Estimat Glomerular Filtration Rate 36.0 mL/min (>60) Glucose Level 132 MG/DL (74-106) H Uric Acid 7.1 MG/DL (2.6-7.2) Calcium Level 8.4 MG/DL (8.5-10.1) L Calcium (Send out) Pending Phosphorus Level 3.4 MG/DL (2.5-4.9) Magnesium Level 1.7 MG/DL (1.8-2.4) L Total Bilirubin 0.2 MG/DL (0.2-1.0) Aspartate Amino Transf (AST/SGOT) 27 U/L (15-37) Alanine Aminotransferase (ALT/SGPT) 29 U/L (12-78) Alkaline Phosphatase 86 U/L (46-116) C-Reactive Protein, Quantitative 21.6 mg/dL (0.00-0.90) H Pro-B-Type Natriuretic Peptide 9493 pg/mL (0-125) H Total Protein 7.2 G/DL (6.4-8.2) Albumin 2.2 G/DL (3.4-5.0) L Globulin 5.0 g/dL Albumin/Globulin Ratio 0.4 (1.0-2.7) L Parathyroid Hormone (Intact) Pending Microbiology Date/Time Source Procedure Growth Status 07/08/18 16:19 Blood Blood Culture - Preliminary NO GROWTH AFTER 24 HOURS Resulted 07/08/18 16:05 Blood Blood Culture - Preliminary NO GROWTH AFTER 24 HOURS Resulted 07/08/18 09:52 Urine,Clean Catch Urine Culture - Final Gram Negative Michael Complete Ezio Huerta MD July 10, 2018 20:58
--- NOTE | 2018-07-10 22:49 | NUR ---
HAND-OFF: Report given to Argelia RN.
--- NOTE | 2018-07-10 22:50 | NUR ---
NURSE NOTES: RECEIVED PT FROM KEVIN ECHOLS. PATIENT IS ASLEEP, ON ROOM AIR, UNLABORED BREATHING, NO ACUTE DISTRESS NOTED. SINCLAIR CATH INTACT AND PATENT. CANE AND COMMODE AT BEDSIDE. BED IS LOCKED IN THE LOWEST POSITION, CALL LIGHT ACTIVE, SIDE RAILS UP X2, AND CALL LIGHT IS WITHIN REACH. WILL CONTINUE TO MONITOR.
--- NOTE | 2018-07-10 23:30 | Operative Note - Dictated ---
DATE OF OPERATION: 07/09/2018 PREOPERATIVE DIAGNOSIS: Obstructing left UPJ stone. POSTOPERATIVE DIAGNOSIS: Obstructing left UPJ stone. OPERATION: Cystoscopy with retrograde intrarenal surgery and extracorporeal shock wave lithotripsy of the UPJ stone. OPERATED BY: Ferdinand Narvaez M.D. ANESTHESIA: General. FINDINGS: Left hydronephrosis and obstructing stone. INDICATIONS FOR SURGERY: The patient was admitted with renal failure and stone obstructing the left kidney. Treatment options were explained to her in great length including all potential complications. She signed a consent. PROCEDURE IN DETAIL: Brought to the operating room and placed in lithotomy position. Prepped and draped in standard fashion under general anesthesia, Mckinley catheter was removed. Cystoscope was introduced into the bladder. Bladder was irrigated. The left ureter was found and cannulated. Guidewire was placed into the left ureter followed by open tip catheter. Retrograde pyelogram was done showing obstructing stone in the UPJ of the left kidney. Guidewire was placed and stent was placed and retained in the left kidney, 24 x 6 Azeri. Mckinley catheter was then placed. Extracorporeal shock wave lithotripsy with 1200 shocks and 7 kilovolts was done with good stone fragmentation. The patient tolerated the procedure well. She received perioperative antibiotics and transferred to the recovery room in stable condition. Sponge count and instrument count was correct. Ferdinand Narvaez M.D. DR: DAVONTE JOB#: [id number] CC:
[2018-07-11] VITALS: BP 136/80
--- NOTE | 2018-07-11 01:00 | NUR ---
NURSE NOTES: COMPLETED 24HR URINE COLLECTION. SENT TO LAB.
[2018-07-11 04:00] VITALS: BP 148/86
[2018-07-11 06:32] LABS: BASOPHILS % (AUTO) 0.7 % (0.0-2.0); HEMATOCRIT 29.6 % (37.0-47.0); HEMOGLOBIN 9.7 G/DL (12.0-16.0); LYMPHOCYTES % (AUTO) 13.1 % (20.0-45.0); MEAN CORPUSCULAR VOLUME 80 FL (80-99); MONOCYTES % (AUTO) 5.3 % (1.0-10.0); NEUTROPHILS % (AUTO) 79.9 % (45.0-75.0); PLATELET COUNT 265 K/UL (150-450); RED BLOOD COUNT 3.71 M/UL (4.20-5.40); RED CELL DISTRIBUTION WIDTH 13.9 % (11.6-14.8); WHITE BLOOD COUNT 13.6 K/UL (4.8-10.8)
[2018-07-11 06:50] LABS: ALANINE AMINOTRANSFERASE 25 U/L (12-78); ALBUMIN 2.3 G/DL (3.4-5.0); ALBUMIN/GLOBULIN RATIO 0.4 (1.0-2.7); ALKALINE PHOSPHATASE 90 U/L (46-116); ANION GAP 8 mmol/L (5-15); ASPARTATE AMINO TRANSFERASE 19 U/L (15-37); BILIRUBIN,TOTAL 0.3 MG/DL (0.2-1.0); BLOOD UREA NITROGEN 20 mg/dL (7-18); CALCIUM 8.9 MG/DL (8.5-10.1); CARBON DIOXIDE 24 MMOL/L (21-32); CHLORIDE 107 MMOL/L (98-107); CREATININE 1.6 MG/DL (0.55-1.30); PHOSPHORUS 3.1 MG/DL (2.5-4.9); POTASSIUM 5.2 MMOL/L (3.5-5.1); SODIUM 139 MMOL/L (136-145)
--- NOTE | 2018-07-11 07:20 | NUR ---
HAND-OFF: Report given to Freeman BROWN.
--- NOTE | 2018-07-11 07:44 | NUR ---
NURSE NOTES: PT AXOX4, CALM, EATING BREAKFAST IN BED. PT REQUESTS FOR SINCLAIR TO BE TAKEN OUT. RN EDUCATED PT WE WILL ASK DR MUNOZ IF OK TO TAKE OUT SINCLAIR CATH. PT VERBALIZED UNDERSTANDING. IN NO APPARENT DISTRESS AT THIS TIME. BED IN LOWEST POSITION WITH BEDSIDE RAILS X2 RAISED. BED ALARM ON. CALL LIGHT WITHIN REACH. WILL CONTINUE TO MONITOR.
[2018-07-11 08:00] VITALS: BP 140/84
[2018-07-11] MEDS: Metoprolol Tartrate 50mg tab ORAL SCH (08:54)
[2018-07-11] MEDS: Docusate 100mg cap ORAL SCH ×2 (08:55→12:30)
[2018-07-11] MEDS ORDERED: Imdur 30mg tab ORAL SCH (09:00)
[2018-07-11] MEDS: Heparin 5000 units/ml inj SUBQ SCH (09:05)
[2018-07-11 12:00] VITALS: BP 140/85
--- NOTE | 2018-07-11 13:04 | Nephrology Progress Note ---
Assessment/Plan Problem List: (1) ATN (acute tubular necrosis) (2) Chronic renal insufficiency (3) Hydronephrosis (4) Morbid obesity (5) Diabetes mellitus (6) Nephrolithiasis Assessment Acute renal failure : On Diuretics , Arnold Inhs, Meloxicam ? CKD Underlying UTI - Sepsis Morbid Obesity CHF HTN, Currently Low BP Anemia Plan had uro stone removed 07/09 Antibiotics hills , I&O 24 h u for Ca Uric acid Anemia sinha Urology fu add Imdure and Lopressor per orders Enlarged hydronephrotic left kidney with cortical thinning and perinephric inflammation secondary to 1 cm obstructing UPJ stone. The obstruction is chronic. Multiple calyceal staghorn type calculi within the right kidney with presence of air in the collecting system. Consider infection. Atherosclerotic vascular disease. Cardiomegaly Diverticulosis of the colon Nondiagnostic evaluation of the pelvis due to bilateral total hip prosthetics. Degenerative changes of the spine Subjective ROS Limited/Unobtainable: No Objective Objective Last 24 Hour Vital Signs Date Time Temp Pulse Resp B/P (MAP) Pulse Ox O2 Delivery O2 Flow Rate FiO2 07/11/18 12:00 98.4 89 19 140/85 (103) 96 07/11/18 09:00 Room Air 07/11/18 08:54 97 140/84 07/11/18 08:54 140/84 07/11/18 08:10 105 18 Room Air 21 07/11/18 08:00 98.5 97 19 140/84 (102) 100 07/11/18 04:00 97.9 96 20 148/86 (106) 96 07/11/18 00:00 97.8 95 20 136/80 (98) 95 07/10/18 21:21 95 132/83 07/10/18 21:00 Room Air 07/10/18 20:00 98.1 95 24 132/83 (99) 99 07/10/18 19:30 96 16 Room Air 21 07/10/18 16:00 98.3 98 16 122/91 (101) 99 Intake and Output 07/10/18 07/11/18 18:59 06:59 Intake Total 240 ml Output Total 600 ml 1300 ml Balance -360 ml -1300 ml Intake Oral 240 ml Output Urine Total 600 ml 1300 ml # Bowel Movements 1 1 Laboratory Tests 07/11/18 05:22: White Blood Count 13.6H, Red Blood Count 3.71L, Hemoglobin 9.7L, Hematocrit 29.6L, Mean Corpuscular Volume 80, Mean Corpuscular Hemoglobin 26.2L, Mean Corpuscular Hemoglobin Concent 32.9, Red Cell Distribution Width 13.9, Platelet Count 265, Mean Platelet Volume 10.0, Neutrophils (%) (Auto) 79.9H, Lymphocytes (%) (Auto) 13.1L, Monocytes (%) (Auto) 5.3, Eosinophils (%) (Auto) 1.0, Basophils (%) (Auto) 0.7, Erythrocyte Sedimentation Rate 109H, Sodium Level 139 , Potassium Level 5.2H, Chloride Level 107, Carbon Dioxide Level 24, Anion Gap 8 , Blood Urea Nitrogen 20H, Creatinine 1.6H, Estimat Glomerular Filtration Rate 38.5, Glucose Level 104, Calcium Level 8.9, Phosphorus Level 3.1, Magnesium Level 2.0, Total Bilirubin 0.3, Aspartate Amino Transf (AST/SGOT) 19, Alanine Aminotransferase (ALT/SGPT) 25, Alkaline Phosphatase 90, C-Reactive Protein, Quantitative 12.5H, Total Protein 7.7, Albumin 2.3L, Globulin 5.4, Albumin/ Globulin Ratio 0.4L Height (Feet): 5 Height (Inches): 3.00 Weight (Pounds): 288 General Appearance: no apparent distress Objective no change Librado Garcia MD July 11, 2018 13:03
[2018-07-11] MEDS ORDERED: CIPRO500 MG PO (13:12)
--- NOTE | 2018-07-11 13:16 | Pulmonology Progress Note ---
Assessment/Plan Problems: (1) Sepsis (2) ATN (acute tubular necrosis) (3) Hydronephrosis (4) Cardiomyopathy (5) CAD (coronary artery disease) (6) Morbid obesity (7) HTN (hypertension) Assessment/Plan wbc decreasing IV fluids Ecoli is pansensitive f/u ID recommendations about the choice of abx. tolerated surgery for urethral stent continue IV abx check electrolytes dvt prophylaxis symptomatic treatment Subjective ROS Limited/Unobtainable: No Constitutional: Reports: no symptoms HEENT: Repors: no symptoms Respiratory: Reports: no symptoms Allergies: Coded Allergies: CODEINE (Verified Adverse Reaction, Intermediate, 03/19/13) Objective Last 24 Hour Vital Signs Date Time Temp Pulse Resp B/P (MAP) Pulse Ox O2 Delivery O2 Flow Rate FiO2 07/11/18 12:00 98.4 89 19 140/85 (103) 96 07/11/18 09:00 Room Air 07/11/18 08:54 97 140/84 07/11/18 08:54 140/84 07/11/18 08:10 105 18 Room Air 21 07/11/18 08:00 98.5 97 19 140/84 (102) 100 07/11/18 04:00 97.9 96 20 148/86 (106) 96 07/11/18 00:00 97.8 95 20 136/80 (98) 95 07/10/18 21:21 95 132/83 07/10/18 21:00 Room Air 07/10/18 20:00 98.1 95 24 132/83 (99) 99 07/10/18 19:30 96 16 Room Air 21 07/10/18 16:00 98.3 98 16 122/91 (101) 99 Intake and Output 07/10/18 07/11/18 18:59 06:59 Intake Total 240 ml Output Total 600 ml 1300 ml Balance -360 ml -1300 ml Intake Oral 240 ml Output Urine Total 600 ml 1300 ml # Bowel Movements 1 1 General Appearance: WD/WN HEENT: normocephalic, atraumatic Respiratory/Chest: chest wall non-tender, lungs clear, chest wall tender Breasts: no masses Cardiovascular: normal peripheral pulses Abdomen: normal bowel sounds, soft, non tender Genitourinary: normal external genitalia Extremities: no cyanosis Skin: no rash Neurologic/Psychiatric: linoleum floor layer II-XII grossly normal Microbiology Date/Time Source Procedure Growth Status 07/08/18 16:19 Blood Blood Culture - Preliminary NO GROWTH AFTER 48 HOURS Resulted 07/08/18 16:05 Blood Blood Culture - Preliminary NO GROWTH AFTER 48 HOURS Resulted Laboratory Tests 07/11/18 05:22: White Blood Count 13.6H, Red Blood Count 3.71L, Hemoglobin 9.7L, Hematocrit 29.6L, Mean Corpuscular Volume 80, Mean Corpuscular Hemoglobin 26.2L, Mean Corpuscular Hemoglobin Concent 32.9, Red Cell Distribution Width 13.9, Platelet Count 265, Mean Platelet Volume 10.0, Neutrophils (%) (Auto) 79.9H, Lymphocytes (%) (Auto) 13.1L, Monocytes (%) (Auto) 5.3, Eosinophils (%) (Auto) 1.0, Basophils (%) (Auto) 0.7, Erythrocyte Sedimentation Rate 109H, Sodium Level 139 , Potassium Level 5.2H, Chloride Level 107, Carbon Dioxide Level 24, Anion Gap 8 , Blood Urea Nitrogen 20H, Creatinine 1.6H, Estimat Glomerular Filtration Rate 38.5, Glucose Level 104, Calcium Level 8.9, Phosphorus Level 3.1, Magnesium Level 2.0, Total Bilirubin 0.3, Aspartate Amino Transf (AST/SGOT) 19, Alanine Aminotransferase (ALT/SGPT) 25, Alkaline Phosphatase 90, C-Reactive Protein, Quantitative 12.5H, Total Protein 7.7, Albumin 2.3L, Globulin 5.4, Albumin/ Globulin Ratio 0.4L Current Medications Medications (Trade) Dose Ordered Sig/Rufina Route PRN Reason Start Time Stop Time Status Last Admin Dose Admin Acetaminophen (Tylenol) 650 mg Q4H PRN ORAL fever 07/10/18 16:10 08/06/18 16:09 Acetaminophen/ Hydrocodone Bitart ([place] 5/325) 1 tab Q6H PRN ORAL PAIN 4-6 07/10/18 16:13 07/15/18 16:12 07/11/18 12:35 Albuterol/ Ipratropium (Albuterol/ Ipratropium) 3 ml Q4H PRN HHN Shortness of Breath 07/10/18 16:12 07/12/18 16:11 Aspirin (ASA) 325 mg DAILY ORAL 07/11/18 09:00 08/08/18 08:59 07/11/18 08:54 Ceftriaxone Sodium 2 gm/ Dextrose 55 ml @ 110 mls/hr Q24H IVPB 07/10/18 16:00 07/17/18 15:59 07/10/18 17:10 Dextrose (Dextrose 50%) 25 ml Q30M PRN IV Hypoglycemia 07/10/18 16:10 08/06/18 16:09 Dextrose (Dextrose 50%) 50 ml Q30M PRN IV Hypoglycemia 07/10/18 16:10 08/06/18 16:09 Docusate Sodium (Colace) 100 mg THREE TIMES A DAY ORAL 07/10/18 18:00 08/07/18 12:59 Folic Acid (Folate) 3 mg DAILY ORAL 07/11/18 09:00 08/08/18 10:44 07/11/18 08:53 Heparin Sodium (Porcine) (Heparin 5000 units/ml) 5,000 units EVERY 12 HOURS SUBQ 07/10/18 21:00 08/06/18 20:59 07/11/18 09:05 Isosorbide Mononitrate (Imdur) 30 mg DAILY ORAL 07/11/18 09:00 08/09/18 08:59 07/11/18 08:54 Metoprolol Tartrate (Lopressor) 50 mg Q12HR ORAL 07/10/18 21:00 08/08/18 10:44 07/11/18 08:54 Morphine Sulfate (Morphine Sulfate) 2 mg Q4H PRN IVP Severe Breakthru Pain (>7) 07/10/18 16:13 07/14/18 16:12 Nitroglycerin (Ntg) 0.4 mg Q5MIN X 3 DOSES PRN SL Prn Chest Pain 07/10/18 16:15 08/09/18 16:14 Ondansetron HCl (Zofran) 4 mg Q6H PRN IVP Nausea & Vomiting 07/10/18 16:11 08/06/18 16:10 Pantoprazole (Protonix) 40 mg EVERY 12 HOURS ORAL 07/10/18 21:00 08/07/18 20:59 07/11/18 08:54 Polyethylene Glycol (Miralax) 17 gm DAILYPRN PRN ORAL Constipation 07/10/18 16:11 08/06/18 16:10 Temazepam (Restoril) 15 mg HSPRN PRN ORAL Insomnia 07/10/18 21:00 07/14/18 20:59 Reyes Bangura MD July 11, 2018 13:16
--- NOTE | 2018-07-11 13:28 | NUR ---
NURSE NOTES: PER DR RIVAS, PT TO BE DISCHARGED WITH PO ANTIBIOTICS. WITH PRESCRIPTION FOR ANTIBIOTICS. PER DR TRIPP, PT OK TO BE DISCHARGED AND REMOVE SINCLAIR CATH. PT TO FOLLOW UP WITH DR ROGEL ON SATURDAY AND FOLLOW UP WITH DR MUNOZ IN 1 WEEK TO REMOVE LEFT URETERAL STENT. PT EDUCATED SINCLAIR CATH WILL BE REMOVED AND PT NEEDS TO URINATE BEFORE BEING DISCHARGED. PT VERBALIZED UNDERSTANDING.
--- NOTE | 2018-07-11 14:22 | Infectious Diseases Prog Note ---
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 The obstruction is chronic. 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 Recommend reevaluation with IV contrast. Multiple calyceal staghorn type calculi within the right kidney with presence of air in the collecting system. Consider infection. Atherosclerotic vascular disease. Cardiomegaly Diverticulosis of the colon Nondiagnostic evaluation of the pelvis due to bilateral total hip prosthetics. Degenerative changes of the spine -CXR: Cardiomegaly. No acute disease Afebrile Leukocytosis; improving COURTNEY; improving CHF HTN Plan: -Continue Ceftriaxone #2 (abx d #07/15) -upon discharge will transition to PO Ciprofloxacin (highest dose renally dose) -07/10 SP Meropenem #3 -07/08 SP IV Vancomycin #2, Cefepime #2 -07/07 SP Zosyn x1 -f.u cx -Monitor CBC/CMP, temperatures -Uro f/u -aspiration precautions Thank you for this consultation. Will continue to follow along with you. Subjective Allergies: Coded Allergies: CODEINE (Verified Adverse Reaction, Intermediate, 03/19/13) Subjective afebrile repeat Bcx NTD wbc and Cr improving transferred out of telemetry to med surg Objective Vital Signs Last 24 Hour Vital Signs Date Time Temp Pulse Resp B/P (MAP) Pulse Ox O2 Delivery O2 Flow Rate FiO2 07/11/18 12:00 98.4 89 19 140/85 (103) 96 07/11/18 09:00 Room Air 07/11/18 08:54 97 140/84 07/11/18 08:54 140/84 07/11/18 08:10 105 18 Room Air 21 07/11/18 08:00 98.5 97 19 140/84 (102) 100 07/11/18 04:00 97.9 96 20 148/86 (106) 96 5/10/19 00:00 97.8 95 20 136/80 (98) 95 07/10/18 21:21 95 132/83 07/10/18 21:00 Room Air 07/10/18 20:00 98.1 95 24 132/83 (99) 99 07/10/18 19:30 96 16 Room Air 21 07/10/18 16:00 98.3 98 16 122/91 (101) 99 Height (Feet): 5 Height (Inches): 3.00 Weight (Pounds): 288 Objective General Appearance: other - Somewhat pale Head: normocephalic, atraumatic Eyes: bilateral eye PERRL, bilateral eye EOMI ENT: normal pharynx, no angioedema Neck: supple Respiratory: lungs clear, no retraction Cardiovascular #1: tachycardia Gastrointestinal: non tender, soft Genitourinary: no CVA tenderness Musculoskeletal: normal inspection Neurologic: alert, oriented x3, responsive, 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 III-XII nml as tested Skin: no rash, pallor Lymphatic: no adenopathy Microbiology Date/Time Source Procedure Growth Status 07/08/18 16:19 Blood Blood Culture - Preliminary NO GROWTH AFTER 48 HOURS Resulted 07/08/18 16:05 Blood Blood Culture - Preliminary NO GROWTH AFTER 48 HOURS Resulted Laboratory Tests Test 07/11/18 05:22 White Blood Count 13.6 K/UL (4.8-10.8) H Red Blood Count 3.71 M/UL (4.20-5.40) L Hemoglobin 9.7 G/DL (12.0-16.0) L Hematocrit 29.6 % (37.0-47.0) L Mean Corpuscular Volume 80 FL (80-99) Mean Corpuscular Hemoglobin 26.2 PG (27.0-31.0) L Mean Corpuscular Hemoglobin Concent 32.9 G/DL (32.0-36.0) Red Cell Distribution Width 13.9 % (11.6-14.8) Platelet Count 265 K/UL (150-450) Mean Platelet Volume 10.0 FL (6.5-10.1) Neutrophils (%) (Auto) 79.9 % (45.0-75.0) H Lymphocytes (%) (Auto) 13.1 % (20.0-45.0) L Monocytes (%) (Auto) 5.3 % (1.0-10.0) Eosinophils (%) (Auto) 1.0 % (0.0-3.0) Basophils (%) (Auto) 0.7 % (0.0-2.0) Erythrocyte Sedimentation Rate 109 MM/HR (0-30) H Sodium Level 139 MMOL/L (136-145) Potassium Level 5.2 MMOL/L (3.5-5.1) H Chloride Level 107 MMOL/L (98-107) Carbon Dioxide Level 24 MMOL/L (21-32) Anion Gap 8 mmol/L (5-15) Blood Urea Nitrogen 20 mg/dL (7-18) H Creatinine 1.6 MG/DL (0.55-1.30) H Estimat Glomerular Filtration Rate 38.5 mL/min (>60) Glucose Level 104 MG/DL (74-106) Calcium Level 8.9 MG/DL (8.5-10.1) Phosphorus Level 3.1 MG/DL (2.5-4.9) Magnesium Level 2.0 MG/DL (1.8-2.4) Total Bilirubin 0.3 MG/DL (0.2-1.0) Aspartate Amino Transf (AST/SGOT) 19 U/L (15-37) Alanine Aminotransferase (ALT/SGPT) 25 U/L (12-78) Alkaline Phosphatase 90 U/L (46-116) C-Reactive Protein, Quantitative 12.5 mg/dL (0.00-0.90) H Total Protein 7.7 G/DL (6.4-8.2) Albumin 2.3 G/DL (3.4-5.0) L Globulin 5.4 g/dL Albumin/Globulin Ratio 0.4 (1.0-2.7) L Current Medications Medications (Trade) Dose Ordered Sig/Rufina Route PRN Reason Start Time Stop Time Status Last Admin Dose Admin Acetaminophen (Tylenol) 650 mg Q4H PRN ORAL fever 07/10/18 16:10 08/06/18 16:09 Acetaminophen/ Hydrocodone Bitart ([place] 5/325) 1 tab Q6H PRN ORAL PAIN 4-6 07/10/18 16:13 07/15/18 16:12 07/11/18 12:35 Albuterol/ Ipratropium (Albuterol/ Ipratropium) 3 ml Q4H PRN HHN Shortness of Breath 07/10/18 16:12 07/12/18 16:11 Aspirin (ASA) 325 mg DAILY ORAL 07/11/18 09:00 08/08/18 08:59 07/11/18 08:54 Ceftriaxone Sodium 2 gm/ Dextrose 55 ml @ 110 mls/hr Q24H IVPB 07/10/18 16:00 07/17/18 15:59 07/10/18 17:10 Dextrose (Dextrose 50%) 25 ml Q30M PRN IV Hypoglycemia 07/10/18 16:10 08/06/18 16:09 Dextrose (Dextrose 50%) 50 ml Q30M PRN IV Hypoglycemia 07/10/18 16:10 08/06/18 16:09 Docusate Sodium (Colace) 100 mg THREE TIMES A DAY ORAL 07/10/18 18:00 08/07/18 12:59 Folic Acid (Folate) 3 mg DAILY ORAL 07/11/18 09:00 08/08/18 10:44 07/11/18 08:53 Heparin Sodium (Porcine) (Heparin 5000 units/ml) 5,000 units EVERY 12 HOURS SUBQ 07/10/18 21:00 08/06/18 20:59 07/11/18 09:05 Isosorbide Mononitrate (Imdur) 30 mg DAILY ORAL 07/11/18 09:00 08/09/18 08:59 07/11/18 08:54 Metoprolol Tartrate (Lopressor) 50 mg Q12HR ORAL 07/10/18 21:00 08/08/18 10:44 07/11/18 08:54 Morphine Sulfate (Morphine Sulfate) 2 mg Q4H PRN IVP Severe Breakthru Pain (>7) 07/10/18 16:13 07/14/18 16:12 Nitroglycerin (Ntg) 0.4 mg Q5MIN X 3 DOSES PRN SL Prn Chest Pain 07/10/18 16:15 08/09/18 16:14 Ondansetron HCl (Zofran) 4 mg Q6H PRN IVP Nausea & Vomiting 07/10/18 16:11 08/06/18 16:10 Pantoprazole (Protonix) 40 mg EVERY 12 HOURS ORAL 07/10/18 21:00 08/07/18 20:59 07/11/18 08:54 Polyethylene Glycol (Miralax) 17 gm DAILYPRN PRN ORAL Constipation 07/10/18 16:11 08/06/18 16:10 Temazepam (Restoril) 15 mg HSPRN PRN ORAL Insomnia 07/10/18 21:00 07/14/18 20:59 Emilie Tena M.D. July 11, 2018 14:22
--- NOTE | 2018-07-11 14:26 | NUR ---
NURSE NOTES: DR RIVAS MADE AWARE OF ELEVATED POTASSIUM LEVEL 5.2 TODAY, AND INSTRUCTED TO TELL PT TO CONTINUE LASIX AT HOME. PT WAS INSTRUCTED AND VERBALIZED UNDERSTANDING.
--- NOTE | 2018-07-11 14:46 | NUR ---
NURSE NOTES: SINCLAIR CATH DISCONTINUED AND PT URINATED. WITNESSED BY CRN. IV ACCESS DISCONTINUED AND BELONGINGS CHECKED AT BEDSIDE. ALL BELONGINGS ACCOUNTED. RN PICKED UP PT'S HOME MEDICATIONS FROM PHARMACY AND GAVE TO PT. RN INSTRUCTED ON FOLLOW UP WITH DR ROGEL ON SATURDAY AND FOLLOW UP WITH DR MUNOZ IN 1 WEEK FOR STENT REMOVAL. EDUCATED ON DISCHARGE ANTIBIOTIC. PT VERBALIZED UNDERSTANDING.
[2018-07-11] MEDS ORDERED: Tubing IV Secondary IV ONE (15:27)
[2018-07-11] MEDS ORDERED: D5 1/2NS 1000ml IV ONE (15:27)
--- NOTE | 2018-07-11 16:00 | Internal Med Progress Note ---
Subjective Physician Name Georges Harper Attending Physician Georges Harper MD Allergies: Coded Allergies: CODEINE (Verified Adverse Reaction, Intermediate, 03/19/13) Subjective Awake, alert, responsive, no acute distress. Objective Last Vital Signs Date Time Temp Pulse Resp B/P (MAP) Pulse Ox O2 Delivery O2 Flow Rate FiO2 07/11/18 12:00 98.4 89 19 140/85 (103) 96 07/11/18 09:00 Room Air 07/11/18 08:10 21 07/09/18 18:03 3 Laboratory Tests Test 07/11/18 05:22 White Blood Count 13.6 K/UL (4.8-10.8) H Red Blood Count 3.71 M/UL (4.20-5.40) L Hemoglobin 9.7 G/DL (12.0-16.0) L Hematocrit 29.6 % (37.0-47.0) L Mean Corpuscular Volume 80 FL (80-99) Mean Corpuscular Hemoglobin 26.2 PG (27.0-31.0) L Mean Corpuscular Hemoglobin Concent 32.9 G/DL (32.0-36.0) Red Cell Distribution Width 13.9 % (11.6-14.8) Platelet Count 265 K/UL (150-450) Mean Platelet Volume 10.0 FL (6.5-10.1) Neutrophils (%) (Auto) 79.9 % (45.0-75.0) H Lymphocytes (%) (Auto) 13.1 % (20.0-45.0) L Monocytes (%) (Auto) 5.3 % (1.0-10.0) Eosinophils (%) (Auto) 1.0 % (0.0-3.0) Basophils (%) (Auto) 0.7 % (0.0-2.0) Erythrocyte Sedimentation Rate 109 MM/HR (0-30) H Sodium Level 139 MMOL/L (136-145) Potassium Level 5.2 MMOL/L (3.5-5.1) H Chloride Level 107 MMOL/L (98-107) Carbon Dioxide Level 24 MMOL/L (21-32) Anion Gap 8 mmol/L (5-15) Blood Urea Nitrogen 20 mg/dL (7-18) H Creatinine 1.6 MG/DL (0.55-1.30) H Estimat Glomerular Filtration Rate 38.5 mL/min (>60) Glucose Level 104 MG/DL (74-106) Calcium Level 8.9 MG/DL (8.5-10.1) Phosphorus Level 3.1 MG/DL (2.5-4.9) Magnesium Level 2.0 MG/DL (1.8-2.4) Total Bilirubin 0.3 MG/DL (0.2-1.0) Aspartate Amino Transf (AST/SGOT) 19 U/L (15-37) Alanine Aminotransferase (ALT/SGPT) 25 U/L (12-78) Alkaline Phosphatase 90 U/L (46-116) C-Reactive Protein, Quantitative 12.5 mg/dL (0.00-0.90) H Total Protein 7.7 G/DL (6.4-8.2) Albumin 2.3 G/DL (3.4-5.0) L Globulin 5.4 g/dL Albumin/Globulin Ratio 0.4 (1.0-2.7) L Microbiology Date/Time Source Procedure Growth Status 07/08/18 16:19 Blood Blood Culture - Preliminary NO GROWTH AFTER 48 HOURS Resulted 07/08/18 16:05 Blood Blood Culture - Preliminary NO GROWTH AFTER 48 HOURS Resulted Intake and Output 07/10/18 07/11/18 18:59 06:59 Intake Total 240 ml Output Total 600 ml 1300 ml Balance -360 ml -1300 ml Intake Oral 240 ml Output Urine Total 600 ml 1300 ml # Bowel Movements 1 1 Objective General: No acute distress, awake and alert HEENT: NCAT, sclera anicteric, PERRL, EOMI. Neck: Supple, no significant jugular venous distention, Lungs: Good inspiratory effort, clear to auscultation bilaterally, no Wheeze or Rales. Heart: Regular rate and rhythm, normal S1/S2, no murmurs Abdomen: soft, nontender, nondistended. Normoactive bowel sounds. Extremities: No Cyanosis , clubbing or edema. Neuro: A&O x 3, Able to move all extremities Skin: warm, no rashes or lesions Psych: Normal mood and affect Assessment/Plan Assessment/Plan ASSESSMENT: This is a 68-year-old female. 1. Generalized weakness. 2. Urinary tract infection. 3. Probable sepsis. 4. Leukocytosis. 5. Left hydronephrosis. 6. Left UPJ stone. 7. Hypertension. 8. Congestive heart failure. 9. Cerebrovascular disease. 10. Hypercholesterolemia. TREATMENT: 1. Urinary tract infection=E. Coli. The patient has been started on Ceftriaxone per ID. An Infectious Disease consultation has been obtained with Dr. Tena. 2. Sepsis=E.Coli. Await ID and sensitivity. Continue Ceftriaxone per ID 3. Leukocytosis. 4. Generalized weakness. 5. Left hydronephrosis/left UPJ stone S/P Cystoscopy with retrograde intrarenal surgery and extracorporeal shock wave lithotripsy of the UPJ stone by Dr. Ferdinand Narvaez M.D 6. Hypertension. 7. Congestive heart failure. 8. Cerebrovascular disease. 9. Hypercholesterolemia. Discharge home today follow-up with urology within 1 week. Continue on ciprofloxacin p.o. Georges Harper MD July 11, 2018 16:00
--- NOTE | 2018-07-14 10:16 | Discharge Summary ---
Discharge Summary Discharge Summary _ DATE OF ADMISSION: 07/07/2018 DATE OF DISCHARGE: 1019 DISCHARGED BY: Dr. Harper: REASON FOR ADMISSION: [] 68 years old female with past medical history of hypertension, renal insufficiency, presented to emergency department with a chief complaint of generalized weakness and decreased appetite. Patient reported taking her three blood pressure medications prior to coming to ER. In emergency department patient was found to be hypotensive and tachycardic. Pulse oximetry was 90% on room air. Laboratory work-up revealed leukocytosis with WBC 29.3 , hemoglobin 9.0 , hematocrit 27.3. Potassium 5.3. BUN 29, creatinine 2.4. Magnesium 1.6. Troponin - 0.323. EKG revealed sinus tachycardia, no acute ischemic changes. pro BNP -8603. Urinalysis revealed evidence of UTI. Chest x-ray revealed no acute cardiopulmonary pathology. Cardiomegaly noted. CT of the abdomen and pelvis demonstrated enlarged hydronephrotic left kidney with cortical thinning and perinephric inflammation secondary to 1 cm obstructing UPJ stone. Obstruction chronic. 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 Multiply calyceal staghorn type calculi within the right kidney with presence of air in the collecting system. Consider infection. Atherosclerotic vascular disease. Cardiomegaly. Diverticulosis of the colon. Septic work-up initiated in the emergency department. Patient pancultured, started on empiric antibiotics and admitted to monitored floor for further management CONSULTANTS: beck operator Dr. Huerta pulmonary Dr. Bangura ID specialist Dr. Briones chemical processing technician Dr. Garcia urology [facility] COURSE: Patient initially admitted to telemetry floor. Patient initially started on IV fluid and empiric antibiotic. Blood culture revealed E. coli. Urine culture revealed E. coli. Repeated blood culture on 07/08 revealed no growth. Persistently elevated inflammatory marker noted. 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 Leukocytosis trending down from 29.3 on admission down to 13.6 prior to discharge. No fevers. Antibiotic changed to oral upon discharge to complete the course at home as per ID specialist recommendation. Urologist seen and evaluated patient. Per urologist, patient had 1 cm stone in the UPJ of the left kidney with hydronephrosis and perinephric status stranding. Patient needed emergency stent placement and possible lithotripsy. Patient subsequently undergone on 07/09 cystoscopy with retrograde intrarenal surgery and extra corporeal shock wave lithotripsy of the UPJ stone. Patient tolerated procedure well. Pain management was addressed, and pain was controlled. Associate Professor Of English followed. Urine studies were done. Renal parameters and electrolytes were closely monitored. Electrolytes corrected as needed. Hyperkalemia treated. Prior to discharge BUN from 28 down to 20 and creatinine from 2.4 down to 1.6. Per chemical processing technician patient likely had acute tubular necrosis and underlying chronic kidney disease. Associate Professor Of English recommended to avoid nephrotoxics. Material Assembler followed. Echocardiogram revealed global left ventricular hypokinesis with ejection fraction of 20 to 25%. No evidence of left ventricular hypertrophy. Moderate mitral regurgitation. Mild to moderate tricuspid regurgitation. Right ventricular systolic pressure of 38 consistent with mild pulmonary hypertension. IV fluids stopped. Second troponin down to 0.13. EKG revealed no acute ischemic changes. Troponin elevation was probably due to sepsis along with ischemic cardiomyopathy. Patient had a cardiac catheterization at [facility] at 2016 , which revealed no significant coronary artery disease. Patient was on beta-aaron, Norvasc, and long acting nitrate. No evidence of fluid overload. No diuretic at this time required. No GREG inhibitor was initiated due to elevated potassium and creatinine. Blood pressure stabilized and was managed with beta-aaron and Norvasc. Patient was on antiplatelet therapy with aspirin . DVT and GI losses provided. Supplemental oxygen provided as needed to keep pulse oximetry above 92%. Pulmonary toilet provided. Hemoglobin hematocrit were closely monitor his goal to keep hemoglobin above 7. Anemia work-up was consistent with anemia of chronic disease. Prior to discharge hemoglobin 9.7 hematocrit 29.6. Patient clinically stabilized and was ready for discharge home. FINAL DIAGNOSES: Sepsis with E. 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 DISCHARGE INSTRUCTIONS: Patient was discharged home with home health services. Follow up with primary care provider in one week. I have been assigned to dictate discharge summary for this account. I was not involved in the patient's management. Aliyah Elkins NP July 14, 2018 10:16
== END 2018-07-11 15:28 | disposition home health service (06) | DRG 853 ==
LOC: EMR 17:08 → 2E 17:45 → EDBEDREQ 18:08 → 4E 07-10 15:48
PROC: BT1FZZZ Fluoroscopy of Left Kidney, Ureter and Bladder (ICD-10-PCS; principal; 2018-07-09 16:30)
PROC: 0T748DZ Dilation of Left Kidney Pelvis with Intraluminal Device, Via Natural or Artificial Opening Endoscopic (ICD-10-PCS; principal; 2018-07-09 16:30)
PROC: 0TF4XZZ Fragmentation in Left Kidney Pelvis, External Approach (ICD-10-PCS; principal; 2018-07-09 16:30)
DX: A41.51 Sepsis due to Escherichia coli [E. coli] (principal); N17.0 Acute kidney failure with tubular necrosis; N39.0 Urinary tract infection, site not specified; Z68.43 Body mass index [BMI] 50.0-59.9, adult; I47.2 Ventricular tachycardia; N11.1 Chronic obstructive pyelonephritis; N20.2 Calculus of kidney with calculus of ureter; I13.0 Hypertensive heart and chronic kidney disease with heart failure and stage 1 through stage 4 chronic kidney disease, or unspecified chronic kidney disease; I42.8 Other cardiomyopathies; I47.1 Supraventricular tachycardia; N13.39 Other hydronephrosis; N10 Acute pyelonephritis; E66.01 Morbid (severe) obesity due to excess calories; I50.9 Heart failure, unspecified; N18.9 Chronic kidney disease, unspecified; Z96.643 Presence of artificial hip joint, bilateral; E78.00 Pure hypercholesterolemia, unspecified
CPT/HCPCS: 36415; 71045; 74176; 80053; 80061; 81001; 81003; 81050; 82270; 82340; 82378; 82533; 82550; 82553; 82607; 82728; 82746; 82962; 82977; 83036; 83540; 83550; 83605; 83615; 83690; 83735; 83880; 83935; 83945; 83970; 84100; 84300; 84439; 84443; 84484; 84550; 84560; 85007; 85025; 85044; 85060; 85610; 85651; 85730; 86140; 87040; 87081; 87086; 87181; 89050; 93005; 93306; 94003; 94150; 94664; 96365; 96367; 96375; 99291; J2250

== ENCOUNTER 2018-08-20 09:54 | Day surgery (SDC) | payer MEDICARE, MEDICAID ==
[~2018-08-20] VITALS: Ht 163.8 cm; Wt 131.1 kg
[2018-08-20] VITALS (10 sets, daily range): BP systolic 117–166; BP diastolic 56–103
[~2018-08-20 09:54] MED LIST changes: +BACTRIM DS TAB1 EAC1 ORAL; +CIPRO500 MG PO; +ceFAZolin sod 1 GM in NS 55 ML IVPB ONE
--- NOTE | 2018-08-20 11:16 | Anethesia Preoperative Eval ---
Anesthesia Pre-op PMH/ROS General Date of Evaluation: Aug 20, 2018 Anesthesiologist: Tu ASA Score: ASA 3 Mallampati Score Class I : Soft palate, uvula, fauces, pillars visible Class II: Soft palate, uvula, fauces visible Class III: Soft palate, base of uvula visible Class IV: Only hard plate visible Mallampati Classification: Class III Surgeon: Solange Diagnosis: Left kidney stones Surgical Procedure: Left ESWL with ureteral stone placement Anesthesia History: none Family History: no anesthesia problems Allergies: Coded Allergies: No Known Allergies (Unverified , 08/20/18) Medications: see eMAR Patient NPO?: Yes NPO Date: Aug 19, 2018 NPO Time: 22:00 Past Medical History Cardiovascular: Reports: HTN, other - CHF-EF 20-25%, HLD; Denies: CAD, MT, valve dz, arrhythmia Pulmonary: Denies: asthma, COPD, EMRE, other Gastrointestinal/Genitourinary: Reports: GERD; Denies: CRI, ESRD, other Neurologic/Psychiatric: Reports: CVA, depression/anxiety; Denies: dementia, TIA, other Endocrine: Reports: hypothyroidism - with 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 Exam Physician Exam Last Vital Signs Date Time Temp Pulse Resp B/P (MAP) Pulse Ox O2 Delivery O2 Flow Rate FiO2 08/20/18 10:45 Room Air 08/20/18 10:32 97.5 96 18 124/71 97 Constitutional: NAD Cardiovascular: RRR Respiratory: other - decreased breath sounds bilaterally Airway Exam Mallampati Score: Class III MO: limited Neck: short,obese, with large neck mass on mid-left TMD: <2 FB ROM: limited Anesthesia Pre-op A/P Labs see chart Studies Pre-op Studies: EKG - sr Risk Assessment & Plan Assessment: ASA III; critically ill patient. Will proceed with procedure as per Dr. Narvaez , it is urgent. Risk of infection with long term care social worker indwelling stent is high. Airway closely examined and OR prepped for any emergent airway interventions needed. Plan: GA Status Change Before Surgery: No Pre-Antibiotics Drug: Ance 2g Given Within 1 Hr of Incision: Yes Marcelle Nelson MD Aug 20, 2018 11:16
[2018-08-20] MEDS ORDERED: LR 1000ml 1,000 ML IVLG SCH (11:30)
[2018-08-20] MEDS ORDERED: fentaNYL 100 mcg/2 mL IV PRN (11:30)
[2018-08-20] MEDS ORDERED: Midazolam 2mg/2ml Inj IVP PRN (11:30)
[2018-08-20] MEDS ORDERED: DiphenhydrAMINE 50mg/ml Inj IVP PRN (11:30)
[2018-08-20] MEDS ORDERED: Hydromorphone 0.5mg/0.5ml inj IVP PRN (11:30)
[2018-08-20] MEDS ORDERED: LORazepam Inj 2mg/ml 1ml IV PRN (11:30)
[2018-08-20] MEDS ORDERED: Ketorolac 30mg Inj IV PRN (11:30)
[2018-08-20] MEDS ORDERED: Metoclopramide 10mg/2ml Inj IVP PRN ×2 (11:30→11:45)
[2018-08-20] MEDS ORDERED: Iothalamate Meglumine 60% 30ML INJ ONE (11:54)
--- NOTE | 2018-08-20 12:43 | Pre-Procedure Note/Attestation ---
Pre-Procedure Note/Attestation Complete Prior to Procedure Planned Procedure: left Procedure Narrative: RIRS ESWL left stent placement Indications for Procedure Pre-Operative Diagnosis: left kidney stone Attestation I attest that I discussed the nature of the procedure; its benefits; risks and complications; and alternatives (and the risks and benefits of such alternatives ), prior to the procedure, with the patient (or the patient's legal procurement representative). I attest that, if there was a reasonable possibility of needing a blood transfusion, the patient (or the patient's legal procurement representative) was given the [facility] standardized written summary, pursuant to the [employer] Flip Blood Safety Act ([place] Health and Safety Code # 1645, as amended). I attest that I re-evaluated the patient just prior to the surgery and that there has been no change in the patient's H&P, except as documented below: Ferdinand Narvaez MD Aug 20, 2018 12:43
[2018-08-20] MEDS ORDERED: fentaNYL 100 mcg/2 mL IV ONE (13:23)
[2018-08-20] MEDS ORDERED: Propofol 200mg/20ml IV ONE (13:23)
[2018-08-20] MEDS ORDERED: Midazolam 2mg/2ml Inj ONE (13:23)
[2018-08-20] MEDS ORDERED: Lidocaine 1% MPF 10mg/ml 5ml ONE (13:23)
[2018-08-20] MEDS ORDERED: Etomidate 40mg/20ml Inj IV ONE (13:27)
[2018-08-20] MEDS ORDERED: LR 1000ml ONE (13:30)
[2018-08-20] MEDS ORDERED: NS Irrig 4000ml IRRIG ONE (13:30)
--- NOTE | 2018-08-20 13:44 | Brief Operative Note ---
Immediate Post Operative Note Operative Note Pre-op Diagnosis: left kidney stone Procedure: ESWL RIRS left Post-op Diagnosis: same Post-op Diagnosis: same as pre-op Surgeon: Sridhar Narvaez Anesthesia: general Specimen: none Complications: none Condition: stable Fluids: 500 Estimated Blood Loss: minimal Implant(s) used?: No Ferdinand Narvaez MD Aug 20, 2018 13:44
--- NOTE | 2018-08-20 14:40 | Immediate Post-Op Evaluation ---
Immediate Post-Op Evalulation Immediate Post-Op Evalulation Procedure: Left EWL, ureteral stent removal Date of Evaluation: Aug 20, 2018 Time of Evaluation: 14:37 IV Fluids: 300 Blood Products: 0 Estimated Blood Loss: min Urinary Output: 0 Blood Pressure Systolic: 162 Blood Pressure Diastolic: 103 Pulse Rate: 102 Respiratory Rate: 21 O2 Sat by Pulse Oximetry: 100 Temperature (Fahrenheit): 97.1 Pain Score (1-10): 0 Nausea: No Vomiting: No Complications 0 Patient Status: awake, reacts, patent, none Hydration Status: adequate Drug: Ancef 2g Given Within 1 Hr of Incision: Yes Marcelle Nelson MD Aug 20, 2018 14:40
--- NOTE | 2018-08-20 14:40 | 48 Hour Post Anesthesia Eval ---
Post Anesthesia Evaluation Procedure: Left EWL, ureteral stent removal Date of Evaluation: Aug 20, 2018 Airway: patent Nausea: No Vomiting: No Pain Intensity: 0 Hydration Status: adequate Cardiopulmonary Status: at baseline Mental Status/LOC: patient returned to baseline Post-Anesthesia Complications: 0 Follow-up care needed: ready to discharge Marcelle Nelson MD Aug 20, 2018 14:40
[2018-08-20] MEDS ORDERED: HYDROmorphone 1mg/ml Carpuject SUBQ PRN (19:01)
[2018-08-20] MEDS ORDERED: Tylenol #3 tab (300mg/30mg) ORAL PRN (19:01)
[2018-08-20] MEDS ORDERED: HYDROcodone/Acetamin 5/325 tab ORAL PRN (19:01)
[2018-08-20] MEDS ORDERED: D5 1/2NS 1,000 ML IV SCH (19:01)
--- NOTE | 2018-08-25 16:00 | Operative Note - Dictated ---
DATE OF OPERATION: 08/20/2018 PREOPERATIVE DIAGNOSES: Retained left double-J stent, left UPJ and renal stone. POSTOPERATIVE DIAGNOSES: Retained left double-J stent, left UPJ and renal stone. OPERATION: Cystoscopy, removal of the old double-J stent, retrograde intrarenal surgery with laser, extracorporeal shock wave lithotripsy, placement of a new double-J stent, and retrograde pyelogram. OPERATED BY: Ferdinand Narvaez M.D. ANESTHESIA: General. FINDINGS: Retained stone in the left kidney, retained double-J stent. INDICATIONS FOR SURGERY: The patient had severe urosepsis. She was hospitalized and treated with laser lithotripsy and stent placement in the left kidney. Repeat study showed residual stones in the left kidney. Treatment options were explained to her at length including all potential complications. She signed a consent. PROCEDURE IN DETAIL: She was brought to the operating room, placed in the lithotomy position, prepped and draped in standard fashion. Under general anesthesia, cystoscope was introduced into the bladder. The old stent was located, grasped, and removed for pathologic examination. Guidewire was placed into the left kidney. Over the guidewire, a flexible ureteroscope was placed. Stones in the UPJ were pushed back into the kidney and treated with extracorporeal shock wave lithotripsy 1200 shocks 9 kilovolts with good stone fragmentation. After that, 24 x 6-Albanian double-J stent was replaced. Retrograde was normal. Mckinley catheter. The patient tolerated the procedure well. Sponge count, instrument count was correct. Ferdinand Narvaez M.D. DR: ALL JOB#: [id number] CC:
== END 2018-08-20 16:00 | disposition home or self-care (01) ==
LOC: SUR 09:54
DX: Z46.6 Encounter for fitting and adjustment of urinary device (principal); N20.0 Calculus of kidney; I11.0 Hypertensive heart disease with heart failure; I50.9 Heart failure, unspecified; Z86.73 Personal history of transient ischemic attack (TIA), and cerebral infarction without residual deficits; I25.2 Old myocardial infarction; M06.9 Rheumatoid arthritis, unspecified; M19.90 Unspecified osteoarthritis, unspecified site; Z79.899 Other long term (current) drug therapy; K21.9 Gastro-esophageal reflux disease without esophagitis; E03.9 Hypothyroidism, unspecified; E66.01 Morbid (severe) obesity due to excess calories; Z96.643 Presence of artificial hip joint, bilateral; Z68.42 Body mass index [BMI] 45.0-49.9, adult
CPT/HCPCS: 52356; C1769; J0690; J1580; J2250; J2704; J3010; Q9961; 94003; 94150

== ENCOUNTER 2018-12-18 18:20 | Emergency (ER) | payer MEDICARE, MEDICAID ==
[~2018-12-18] VITALS: Ht 165.1 cm; Wt 122.5 kg
[~2018-12-18 18:20] MED LIST changes: -ceFAZolin sod 1 GM in NS 55 ML IVPB ONE
[2018-12-18] MEDS ORDERED: AUGMENTIN 875-1 EAC1 ORAL (19:03)
--- NOTE | 2018-12-18 19:03 | Emergency Room Report ---
History of Present Illness General Chief Complaint: Earache Source: Patient Present Illness HPI 68-year-old female with history of congestive heart failure, currently treated by third steel pourer here complaining of 2 days of ear pain rating a 7 out of 10 without radiation. Denies any mastoid pain or tenderness. Denies sore throat, cough and congestion, fever and chills. Denies any fluid drainage from the ear. Denies tinnitus, vertigo, dizziness, headache, loss of hearing. Has not taken medication for symptom relief. Patient reports that she has rheumatoid arthritis and has been taking [place] with symptom relief. Denies other associated symptoms. Patient has an upcoming appointment with primary care provider in 1 week Allergies: Coded Allergies: No Known Allergies (Unverified , 08/20/18) Patient History Past Medical History: see triage record Past Surgical History: unable to obtain Pertinent Family History: none Last Menstrual Period: n/a Now: No Immunizations: UTD Reviewed Nursing Documentation: PMH: Agreed; PSxH: Agreed Nursing Documentation-PMH Past Medical History: No History, Except For Hx Cardiac Problems: Yes - CHF Hx Hypertension: Yes Hx Cancer: No Hx Gastrointestinal Problems: No Hx Neurological Problems: Yes Hx Cerebrovascular Accident: Yes - 2016 Review of Systems All Other Systems: negative except mentioned in HPI Physical Exam Vital Signs Date Time Temp Pulse Resp B/P (MAP) Pulse Ox O2 Delivery O2 Flow Rate FiO2 12/18/18 18:24 98.8 113 18 145/86 (105) 95 Room Air Sp02 EP Interpretation: reviewed, normal General Appearance: no apparent distress, alert, GCS 15, non-toxic Head: normocephalic, atraumatic Eyes: bilateral eye normal inspection, bilateral eye PERRL ENT: hearing grossly normal, normal pharynx, no angioedema, uvula midline, other - Erythema of right ear canal, TM within normal limits Neck: normal inspection, full range of motion, supple Respiratory: normal inspection, chest non-tender, lungs clear, no wheezing Cardiovascular #1: regular rate, rhythm, no edema, no murmur Gastrointestinal: normal inspection, non tender, soft Genitourinary: no CVA tenderness Musculoskeletal: normal inspection, back normal, digits/nails normal Neurologic: normal inspection, alert, oriented x3, responsive Psychiatric: normal inspection, judgement/insight normal Skin: no rash Lymphatic: normal inspection, no adenopathy Medical Decision Making PA Attestation All my diagnosis and treatment plans were reviewed ad discussed with my supervising physician Dr. Tse Diagnostic Impression: Primary Impression: Otitis media ER Course 68-year-old female with history of congestive heart failure, currently treated by third steel pourer here complaining of 2 days of ear pain rating a 7 out of 10 without radiation. Denies any mastoid pain or tenderness. Denies sore throat, cough and congestion, fever and chills. Denies any fluid drainage from the ear. Denies tinnitus, vertigo, dizziness, headache, loss of hearing. Has not taken medication for symptom relief. Patient reports that she has rheumatoid arthritis and has been taking [place] with symptom relief. Denies other associated symptoms. Patient has an upcoming appointment with primary care provider in 1 week Ddx considered but are not limited to: strep pharyngitis, URI, mastoiditis, otitis media, otitis externa Vital signs: are WNL, pt. is afebrile H&PE are most consistent with: Otitis media ORDERS: Augmentin ED INTERVENTIONS: None required at this time. DISCHARGE: At this time pt. is stable for d/c to home. Will provide printed patient care instructions, and any necessary prescriptions. Care plan and follow up instructions have been discussed with the patient prior to discharge. Patient provider at this time are to be treated with oral antibiotic the patient has history of severe progressive infection and due to her CHF better to be treated with antibiotics. Patient agrees and reports that she has had multiple episodes of earache in the past and she has been responding well with antibiotics. I also advised her to return to emergency room if any new symptoms such as headache and dizziness. No temporal artery pulsation was noted and patient has no lockjaw. Patient tested negative for unilateral and generalized weakness. Patient had no motor or sensory deficits. Last Vital Signs Date Time Temp Pulse Resp B/P (MAP) Pulse Ox O2 Delivery O2 Flow Rate FiO2 12/18/18 18:24 98.8 113 18 145/86 (105) 95 Room Air Disposition: HOME, SELF-CARE Condition: Stable Scripts Amoxicillin/Potassium Clav 875-125* (AUGMENTIN 875-125 TABLET*) 1 Each Tablet 1 TAB ORAL TWICE A DAY for 10 Days, #20 TAB Prov: Heather Longoria 12/18/18 Patient Instructions: Otitis Media, Adult, [id number] Additional Instructions: Take medication as directed follow-up with your primary care provider worsening symptoms return to the emergency room also follow-up with ear nose throat doctor Heather Longoria Dec 18, 2018 19:02
--- NOTE | 2018-12-18 19:05 | NUR ---
ER DISCHARGE NOTE: Patient is cleared to be discharged per ERMD, pt is aox4, on room air, with stable vital signs. pt was given dc and prescription instructions, pt was able to verbalize understanding, pt is able to ambulate with steady gait. pt took all belongings.
[2018-12-18 19:13] VITALS: BP 145/86
[2018-12-18 19:14] VITALS: BP 145/86
== END 2018-12-18 19:14 | disposition home or self-care (01) ==
LOC: EMR 19:00
DX: H66.90 Otitis media, unspecified, unspecified ear (principal); I11.0 Hypertensive heart disease with heart failure; I50.9 Heart failure, unspecified; Z86.73 Personal history of transient ischemic attack (TIA), and cerebral infarction without residual deficits
CPT/HCPCS: 99282